=== PATIENT | female | born 1980 ===

== ENCOUNTER 2017-11-14 10:36 | Inpatient (IN) | payer MEDICAID ==
[2017-11-14] MEDS ORDERED: Albuterol-Ipratrop 3 mg / 0.5 (3 ml) UD INH STA ×3 (10:44→15:09)
[2017-11-14] MEDS ORDERED: Albuterol-Ipratrop 3 mg / 0.5 (3 ml) UD IH STA (10:44)
--- NOTE | 2017-11-14 10:49 | ED PDOC ---
HPI: SOB/CHF/COPD Time Seen by Provider: 11/14/17 10:41 Chief Complaint (Provider): Asthma History Per: Patient History/Exam Limitations: no limitations Onset/Duration Of Symptoms: Days (3) Current Symptoms Are (Timing): Still Present Additional Complaint(s): Pt. with wheezes and cough/nasal congestion for 3 days. States baby at home sick and she got the same. Tried her inhalers at home. Has had 2 intubations for it in the past. EMS gave pt. 125mg solumedrol, 3 Duoneb, 0.3 epi, 2 gm Mag. Pt. states she is feeling better with the tx. No chest pin, weakness, abd pain, nausea, vomit, diarrhea, headaches, dizziness. No pcp. Past Medical History Reviewed: Nursing Documentation, Vital Signs Vital Signs: Last Vital Signs Temp 97.7 F 11/14/17 12:37 Pulse 97 H 11/14/17 12:37 Resp 20 11/14/17 12:37 BP 112/81 11/14/17 12:37 Pulse Ox 95 11/14/17 12:37 - Medical History PMH: Asthma, Bronchitis - Surgical History Surgical History: No Surg Hx - Family History Family History: States: Unknown Family Hx - Living Arrangements Living Arrangements: With Family - Social History Current smoker - smoking cessation education provided: No Alcohol: None Drugs: Denies - Home Medications Home Medications: Ambulatory Orders Medication Instructions Recorded Albuterol HFA [Ventolin HFA 90 2 puff IH Q4 PRN 11/14/17 mcg/actuation (8 g)] Fluticasone/Salmeterol [Advair 1 puff IH Q12 11/14/17 250-50 Diskus] - Allergies Allergies/Adverse Reactions: Allergies Allergy/AdvReac Type Severity Reaction Status Date / Time aspirin Allergy Verified 11/14/17 10:42 Review of Systems ROS Statement: Except As Marked, All Systems Reviewed And Found Negative ENT: Positive for: Nose Congestion Respiratory: Positive for: Cough, Shortness of Breath, Wheezing Physical Exam - Reviewed Nursing Documentation Reviewed: Yes Vital Signs Reviewed: Yes - Physical Exam Appears: Positive for: Uncomfortable Head Exam: Positive for: ATRAUMATIC, NORMAL INSPECTION, NORMOCEPHALIC Skin: Positive for: Normal Color, Warm, DRY Eye Exam: Positive for: EOMI, Normal appearance, PERRL ENT: Positive for: Normal ENT Inspection Neck: Positive for: Normal, Painless ROM, Supple Cardiovascular/Chest: Positive for: Chest Non Tender, Tachycardia. Negative for : Edema Respiratory: Positive for: Decreased Breath Sounds, Accessory Muscle Use (mild) , Wheezing (bl) Gastrointestinal/Abdominal: Positive for: Normal Exam, Bowel Sounds, Soft. Negative for: Tenderness Back: Positive for: Normal Inspection. Negative for: L CVA Tenderness, R CVA Tenderness Extremity: Positive for: Normal ROM. Negative for: Tenderness, Pedal Edema Neurologic/Psych: Positive for: Alert, educational assistant II-XII, Oriented. Negative for: Motor/Sensory Deficits - Laboratory Results Result Diagrams: 11/14/17 11:32 11/14/17 11:32 Interpretation Of Abn Labs: 14.5 wbc - ECG ECG: Positive for: Interpreted By Me, Viewed By Me ECG Rhythm: Positive for: Normal QRS, Normal ST Segment, Sinus Rhythm - Radiology X-Ray: Read By Radiologist X-Ray Interpretation: No Acute Disease - Progress ED Course And Treament: 1314: Stable. Still with wheezes, but with improvement from time seen. Pt. will be put back on bipap. Will need admit. Pt. is status asthmaticus and not septic. HR increase likely form albuterol and dyspnea. Pt. WBC likely from distress reaction. Spoke with Dr. Brown who will admit. Spoke with Dr. Randolph. Will admit ICU. - Critical Care Total Time (In Min): 30 Documented Critical Care: Time excludes all time spent performint seperately billable procedures Disposition - Clinical Impression Clinical Impression: Status asthmaticus - Patient ED Disposition Is Patient to be Admitted: Yes - Disposition Disposition Time: 13:53 Condition: SERIOUS - Pt Status Changed To: Hospital Disposition Of: Inpatient - Admit Certification Admit to Inpatient:: After my assessment, the patient will require hospitalization for at least two midnights. This is because of the severity of symptoms shown, intensity of services needed, and/or the medical risk in this patient being treated as an outpatient. - POA Present On Arrival: None
[2017-11-14 11:09] LABS: ABG ALLEN TEST YES; ARTERIAL BLOOD GAS HCO3 23.1 mmol/L (21-28); ARTERIAL BLOOD GAS O2 SAT 100.7 % (95-98); ARTERIAL BLOOD GAS PCO2 41 mm/Hg (35-45); ARTERIAL BLOOD GAS PH 7.36 (7.35-7.45); ARTERIAL BLOOD GAS PO2 114 mm/Hg (80-100); ARTERIAL BLOOD GAS TCO2 24.5 mmol/L (22-28)
[2017-11-14 11:39] LABS: BASO # 0.1 K/uL (0.0-0.2); BASO % 0.5 % (0.0-2.0); EOS # 0.3 K/uL (0.0-0.7); EOS % 2.3 % (0.0-4.0); HEMOGLOBIN 16.2 g/dL (12.0-16.0); LYMPH # 2.3 K/uL (1.0-4.3); LYMPH % 16.1 % (20.0-40.0); MEAN CELL VOLUME 97.4 fl (81.0-99.0); MEAN CORPUSCULAR HGB CONC 33.9 g/dL (33.0-37.0); MEAN PLATELET VOLUME 9.2 fl (7.2-11.7); MONO # 0.6 K/uL (0.0-0.8); NEUT # 11.2 K/uL (1.8-7.0); NEUT % 77.1 % (50.0-75.0); NRBC % 0.1 % (0.0-0.0); RBC 4.89 Mil/uL (3.80-5.20); RED CELL DISTRIBUTION WIDTH 13.6 % (11.5-14.5); WHITE BLOOD COUNT 14.5 K/uL (4.8-10.8)
[2017-11-14] MEDS: Sodium Chloride 0.9% 1,000 ML IV SCH ×2 (11:40→14:51)
--- NOTE | 2017-11-14 11:43 | RAD ---
HISTORY: Sepsis Patient COMPARISON: No prior. FINDINGS: LUNGS: No active pulmonary disease. PLEURA: No significant pleural effusion identified, no pneumothorax apparent. CARDIOVASCULAR: Normal. OSSEOUS STRUCTURES: No significant abnormalities. VISUALIZED UPPER ABDOMEN: Normal. OTHER FINDINGS: None. IMPRESSION: No active disease.
[2017-11-14 11:49] LABS: CALCIUM 9.4 mg/dL (8.4-10.2); GFR AFRICAN-AMERICAN > 60; GFR NON-AFRICAN AMERICAN > 60
[2017-11-14 11:54] LABS: ALBUMIN 4.6 g/dL (3.5-5.0); ALT/SGPT 224 U/L (9-52); AST/SGOT 252 U/L (14-36); BLOOD UREA NITROGEN 13 mg/dl (7-17)
[2017-11-14 11:59] LABS: B-TYPE NATRIURETIC PEPTIDE 51.2 pg/ml (0-450)
[2017-11-14 12:00] LABS: INR 1.1 (0.9-1.2); PARTIAL THROMBOPLASTIN TIME 38.9 Seconds (25.6-37.1)
[2017-11-14 14:52] LABS: SQUAMOUS EPITHIAL 2 /hpf (0-5); URINE BILIRUBIN NEGATIVE (NEGATIVE); URINE BLOOD SMALL (NEGATIVE); URINE CLARITY SLIGHTY-CLOUDY (Clear); URINE COLOR STRAW (YELLOW); URINE GLUCOSE (UA) NEG (Normal); URINE LEUKOCYTE ESTERASE NEG Leu/uL (Negative); URINE PROTEIN NEGATIVE (NEGATIVE); URINE UROBILINOGEN 0.2-1.0 mg/dL (0.2-1.0)
--- NOTE | 2017-11-14 15:10 | CARD ---
APPROVED REPORT EKG Measurement Heart [id number] <Conclusion> Sinus tachycardia Otherwise normal ECG
[2017-11-14] MEDS ORDERED: cefTRIAXone (Rocephin) 1 gm Inj ONE (15:30)
[2017-11-14] MEDS ORDERED: Albuterol-Ipratrop 3 mg / 0.5 (3 ml) UD ONE (15:31)
[2017-11-14] MEDS: Albuterol-Ipratrop 3 mg / 0.5 (3 ml) UD INH SCH ×2 (15:36→19:53)
[2017-11-14] MEDS ORDERED: methylPREDNISolone 125 MG in Sodium Chloride 0.9% 50 ML IV SCH (16:00)
[2017-11-14] MEDS ORDERED: Pneumococcal 23-Valent Vaccine IM ONE (17:42)
[2017-11-14] MEDS ORDERED: Influenza Vaccine 18yr & older 0.5 ML/45 MCG SYR IM ONE (17:48)
[2017-11-14] MEDS: Dextrose 5%/0.9% NS 1,000 ML IV SCH (18:02)
[2017-11-14] MEDS: Azithromycin 500 MG in Sodium Chloride 0.9% 250 ML IVPB SCH (18:04)
[2017-11-14] MEDS: Enoxaparin 40 mg Syringe SC SCH (18:05)
[2017-11-14 21:36] LABS: BENZODIAZEPINES, UR NEGATIVE (NEGATIVE)
[2017-11-14 21:48] LABS: BARBITURATES, UR NEGATIVE (NEGATIVE); OPIATES, UR NEGATIVE (NEGATIVE); PHENCYCLIDINE, UR NEGATIVE (NEGATIVE)
[2017-11-15] MEDS: Albuterol-Ipratrop 3 mg / 0.5 (3 ml) UD INH PRN ×2 (00:19→04:40)
[2017-11-15 05:12] LABS: HEMOGLOBIN 14.5 g/dL (12.0-16.0); MEAN CELL VOLUME 97.8 fl (81.0-99.0); MEAN CORPUSCULAR HEMOGLOBIN 33.3 pg (27.0-31.0); RBC 4.37 Mil/uL (3.80-5.20); RED CELL DISTRIBUTION WIDTH 13.5 % (11.5-14.5); WHITE BLOOD COUNT 10.7 K/uL (4.8-10.8)
[2017-11-15 05:41] LABS: BLOOD UREA NITROGEN 12 mg/dl (7-17); CALCIUM 9.1 mg/dL (8.4-10.2); GFR AFRICAN-AMERICAN > 60; GFR NON-AFRICAN AMERICAN > 60
[2017-11-15] MEDS: Albuterol-Ipratrop 3 mg / 0.5 (3 ml) UD INH SCH ×4 (07:30→19:31)
--- NOTE | 2017-11-15 08:26 | CON ---
CRITICAL CARE CONSULTATION DATE: 11/14/2017 HISTORY OF PRESENT ILLNESS: The patient in ER, being admitted to ICU. The patient is seen and evaluated at the request of ER physician. Past medical, surgical, family, and social history reviewed. Events in the ER noted. Discussed with ER physician. A 37-year-old female with a history of extrinsic asthma, on Ventolin and Advair at home, presented to emergency room complaining of progressively worsening shortness of breath associated with nonproductive cough and chest congestion. History of exposure to _patient's_ child with upper respiratory infection, details not clear. In ER, the patient's vital signs show temperature 97.7, heart rate 97, respiratory rate 20, blood pressure 112/81, and pulse oximetry 95. The patient was treated with albuterol x3 and placed on BiPAP. Reportedly, the patient was given three treatments of DuoNeb, 0.3 mg of epinephrine subcutaneously, 2 g of magnesium sulfate, and Solu-Medrol 125 mg q6hrs. The patient also has a history of intubations in the past for respiratory failure secondary to exacerbation of asthma. PAST SURGICAL HISTORY: Unremarkable. FAMILY HISTORY: Noncontributory. SOCIAL HISTORY: Nonsmoker and non-EtOH user. PHYSICAL EXAMINATION: VITAL SIGNS: As noted above. HEAD, EYES, EARS, NOSE, AND THROAT: Unremarkable. CHEST: Bilateral breath sounds. Audible wheezing. HEART: Rhythm regular. S1 and S2 normal in intensity. ABDOMEN: Bowel sounds are present and soft. Liver and spleen not palpable. Bladder not distended. EXTREMITIES: Unremarkable. NEUROLOGIC: Nonfocal. LABORATORY DATA: WBC 14.5, hemoglobin 16.2, hematocrit 47.6, platelet count 267, neutrophils 77, lymphocytes 16, and monocytes 4. PT 12, INR 1.1, and PTT 38.9. ABG; pH of 7.36, pCO2 of 41, and pO2 of 114. Glucose 133 and lactate 1.6. SMA-7; sodium 149, potassium 4.4, chloride 104, CO2 of 23, blood urea nitrogen 13, creatinine 0.5, glucose 143, random glucose 136, calcium 9.4, phosphorus 4.3, magnesium 2.2, total bilirubin 1.5, AST 252, ALT 224, alkaline phosphatase 139, total protein 9.4, and albumin 4.6. IMPRESSION AND PLAN: Acute hypoxic respiratory insufficiency, status asthmaticus, history of extrinsic asthma, abnormal liver function test, unclear etiology, and needs further workup. We will continue with bilevel positive airway pressure until the patient is more stable. Continue DuoNeb 3 mL via nebulizer q.6 hours, short course of systemic steroid proton pump inhibitor, antibiotic Rocephin 1 g IV daily, Zithromax 500 mg IV daily, Lovenox 40 subcutaneously daily, and urine test. Sylvester Randolph MD MTDSingh
[2017-11-15] MEDS: Enoxaparin 40 mg Syringe SC SCH (08:43)
[2017-11-15] MEDS: MethylPREDNISolone 40 mg Vial IVP SCH ×2 (08:44→16:16)
[2017-11-15] MEDS: Azithromycin 500 MG in Sodium Chloride 0.9% 250 ML IVPB SCH (08:44)
[2017-11-15] MEDS: Pantoprazole 40 mg EC Tab PO SCH (08:50)
[2017-11-15] MEDS ORDERED: methylPREDNISolone 40 MG in Sodium Chloride 0.9% 50 ML IVPB SCH (09:00)
[2017-11-15] MEDS: Dextrose 5%/0.9% NS 1,000 ML IV SCH (14:24)
--- NOTE | 2017-11-15 15:44 | CP.CCUPN ---
CCU Subjective - Physician Review Subjective (Free Text): Awake and alert, trial off BiPAP with fair tolerance and dyspneic on exertion, on 5 LPM for breakfast, but required and requested BiPAP again, conversant and awake on BiPAP system ( /, 40% ) with SPO2 98% and TV average 348 ml. Other VS and I/Os reviewed. T max 100.6F yesterday; 3.0 L positive fluid balance last 24H. ROS: No other pertinent negs or positives on 10+ system review. PMSFH: All other Nursing and physician documentation reviewed to date; no new pertinent info noted relevant to current medical problems. EXAM- HEENT: no icterus, no gaze preference, pupils equal and reactive, no icterus NECK: No JVD, supple, carotids equal upstroke bilat/no bruits CHEST: decreased BS bases, otherwise clear bilat, no wheezes audible HEART: regular distant, S1S2, no rubs. ABD: soft, no distention, no tympany or tenderness, BS present, no RUQ / liver tenderness. EXT: No peripheral/ digital cyanosis, no calf tenderness or palpable cords, distal pulses intact and symmetrical. NEURO: no gross focal motor deficits SKIN: no rashes, warm and dry. CXR: admission film- clear bilaterally (my interp). LABS: WBC= 10.7 HGB= 14.5 PLTs= 204K Na= 153 K= 4.1 HCO3=25 CL= 108 BUN/Cr= 12/0.5 BS= 159 MAJOR PROBLEMS: 1. Acute Resp Insuff 2. Asthma exacerbation 2 Tracheobronchitis 3. Hypernatremia 2 Dehydration 4. Hypertransaminasemia PLAN: 1. Continue Steroids (lower dose) and inhaled Duoneb, empiric abx coverage. 2. Stop D5NS and change in D50.45% Saline for now and increase rate. 3. Check repeat LFTs, and Coags, Hep ABC Screen. 4. Watch for need for assisted breathing support. 5. Consider ECHO study. 6. Watch for substance abuse withdrawal. CCU Objective - Vital Signs / Intake & Output Vital Signs (Last 4 hours): Vital Signs Temp Pulse Resp BP Pulse Ox 11/15/17 15:00 85 22 126/94 H 100 11/15/17 14:00 92 H 21 116/50 L 98 11/15/17 13:00 79 24 123/71 100 11/15/17 12:00 98.8 F 79 22 117/82 97 Intake and Output (Last 8hrs): Intake & Output 11/15/17 11/15/17 11/15/17 06:59 14:59 22:59 Weight 155 lb - Medications Active Medications: Active Medications Generic Name Dose Route Start Last Admin Trade Name Freq PRN Reason Stop Dose Admin Acetaminophen 975 mg 11/14/17 10:43 Tylenol 325mg Tab PO ONCE PRN Fever >100.4 F Acetaminophen 650 mg 11/14/17 18:17 11/15/17 14:23 Tylenol 325mg Tab PO 650 mg Q6 PRN Administration Headache Albuterol/Ipratropium 3 ml 11/14/17 15:10 11/15/17 04:40 Duoneb 3 Mg/0.5 Mg (3 Ml) Ud INH 3 ml RQ4 PRN Administration Shortness of Breath Albuterol/Ipratropium 3 ml 11/14/17 16:00 11/15/17 15:43 Duoneb 3 Mg/0.5 Mg (3 Ml) Ud INH 3 ml RQID SIDNEY Administration Enoxaparin Sodium 40 mg 11/14/17 15:30 11/15/17 08:43 Lovenox SC 40 mg DAILY SIDNEY Administration Protocol Ceftriaxone Sodium 1 gm/ 100 mls @ 100 mls/hr 11/14/17 15:15 11/15/17 09:22 Sodium Chloride IVPB 100 mls/hr DAILY SIDNEY Administration Protocol Azithromycin 500 mg/ Sodium 250 mls @ 250 mls/hr 11/14/17 15:30 11/15/17 08: 44 Chloride IVPB 250 mls/hr DAILY SIDNEY Administration Protocol Methylprednisolone 40 mg 11/15/17 09:00 11/15/17 08:44 Solu-Medrol IVP 40 mg Q8 SIDNEY Administration Oxycodone/Acetaminophen 1 tab 11/15/17 15:00 Percocet 5/325 Mg Tab PO 11/18/17 15:01 Q6 PRN Pain, moderate (4-7) Pantoprazole Sodium 40 mg 11/15/17 09:00 11/15/17 08:50 Protonix Ec Tab PO 40 mg DAILY SIDNEY Administration - Patient Studies Lab Studies: Microbiology Studies 11/14/17 11:32 Blood Culture - Preliminary Blood NO GROWTH AFTER 24 HOURS 11/14/17 11:32 Blood Culture - Preliminary Blood NO GROWTH AFTER 24 HOURS Lab Studies 11/15/17 11/15/17 11/14/17 Range/Units 04:25 04:25 21:15 WBC 10.7 (4.8-10.8) K/uL RBC 4.37 (3.80-5.20) Mil/uL Hgb 14.5 (12.0-16.0) g/dL Hct 42.7 (34.0-47.0) % MCV 97.8 (81.0-99.0) fl MCH 33.3 H (27.0-31.0) pg MCHC 34.0 (33.0-37.0) g/dL RDW 13.5 (11.5-14.5) % Plt Count 204 (130-400) K/uL Sodium 153 H (132-148) mmol/l Potassium 4.1 (3.6-5.0) MMOL/L Chloride 108 H (98-107) mmol/L Carbon Dioxide 25 (22-30) mmol/L Anion Gap 24 H (10-20) BUN 12 (7-17) mg/dl Creatinine 0.5 L (0.7-1.2) mg/dl Est GFR ( Amer) > 60 Est GFR (Non-Af Amer) > 60 Random Glucose 159 H (65-105) mg/dL Calcium 9.1 (8.4-10.2) mg/dL Urine Opiates Screen Negative (NEGATIVE) Urine Methadone Screen Negative (NEGATIVE) Ur Barbiturates Screen Negative (NEGATIVE) Ur Phencyclidine Scrn Negative (NEGATIVE) Ur Amphetamines Screen Negative (NEGATIVE) U Benzodiazepines Scrn Negative (NEGATIVE) U Oth Cocaine Metabols Negative (NEGATIVE) U Cannabinoids Screen Positive H (NEGATIVE) Hepatitis C Antibody (NEGATIVE) 11/14/17 Range/Units 21:15 WBC (4.8-10.8) K/uL RBC (3.80-5.20) Mil/uL Hgb (12.0-16.0) g/dL Hct (34.0-47.0) % MCV (81.0-99.0) fl MCH (27.0-31.0) pg MCHC (33.0-37.0) g/dL RDW (11.5-14.5) % Plt Count (130-400) K/uL Sodium (132-148) mmol/l Potassium (3.6-5.0) MMOL/L Chloride (98-107) mmol/L Carbon Dioxide (22-30) mmol/L Anion Gap (10-20) BUN (7-17) mg/dl Creatinine (0.7-1.2) mg/dl Est GFR ( Amer) Est GFR (Non-Af Amer) Random Glucose (65-105) mg/dL Calcium (8.4-10.2) mg/dL Urine Opiates Screen (NEGATIVE) Urine Methadone Screen (NEGATIVE) Ur Barbiturates Screen (NEGATIVE) Ur Phencyclidine Scrn (NEGATIVE) Ur Amphetamines Screen (NEGATIVE) U Benzodiazepines Scrn (NEGATIVE) U Oth Cocaine Metabols (NEGATIVE) U Cannabinoids Screen (NEGATIVE) Hepatitis C Antibody Reactive (NEGATIVE) Laboratory Results - last 24 hr 11/14/17 11/14/17 11/15/17 21:15 21:15 04:25 WBC 10.7 RBC 4.37 Hgb 14.5 Hct 42.7 MCV 97.8 MCH 33.3 H MCHC 34.0 RDW 13.5 Plt Count 204 Sodium Potassium Chloride Carbon Dioxide Anion Gap BUN Creatinine Est GFR ( Amer) Est GFR (Non-Af Amer) Random Glucose Calcium Urine Opiates Screen Negative Urine Methadone Screen Negative Ur Barbiturates Screen Negative Ur Phencyclidine Scrn Negative Ur Amphetamines Screen Negative U Benzodiazepines Scrn Negative U Oth Cocaine Metabols Negative U Cannabinoids Screen Positive H Hepatitis C Antibody Reactive 11/15/17 04:25 WBC RBC Hgb Hct MCV MCH MCHC RDW Plt Count Sodium 153 H Potassium 4.1 Chloride 108 H Carbon Dioxide 25 Anion Gap 24 H BUN 12 Creatinine 0.5 L Est GFR ( Amer) > 60 Est GFR (Non-Af Amer) > 60 Random Glucose 159 H Calcium 9.1 Urine Opiates Screen Urine Methadone Screen Ur Barbiturates Screen Ur Phencyclidine Scrn Ur Amphetamines Screen U Benzodiazepines Scrn U Oth Cocaine Metabols U Cannabinoids Screen Hepatitis C Antibody Fingerstick Blood Sugar Results: 143 Review of Systems - Review of Systems All systems: reviewed and no additional remarkable complaints except (as above) Critical Care Progress Note - Nutrition Nutrition: Nutrition Category Date Time Status Regular Diet [DIET] Diets 11/15/17 Breakfast Active Regular Diet [DIET] Diets 11/15/17 Dinner Active
[2017-11-15] MEDS: Oxycodone/Acetaminophen 5/325 mg Tab PO PRN ×2 (15:46→22:56)
[2017-11-15] MEDS: Dextrose 5%/0.45% NS 1,000 ML IV SCH (16:15)
--- NOTE | 2017-11-15 22:57 | CP.PCM.HP ---
History of Present Illness - History of Present Illness History of Present Illness: CC: SOB and wheezes History of present Illness: A 37yoF with h/o Asthma presented with dyspnea and wheezes and cough/nasal congestion for 3 days. States baby at home sick and she got the same. Tried her inhalers at home. Has had 2 intubations for it in the past. EMS gave pt. 125mg solumedrol, 3 Duoneb, 0.3 epi, 2 gm Mag. The dyspnea and wheezing persisted despite multiple dosing of duoneb in the ER and using accessory muscles due to Acute resp distress. Admitted to ICU for further management. No chest pin, weakness, abd pain, nausea, vomit, diarrhea, headaches, dizziness. No pcp. Present on Admission - Present on Admission Any Indicators Present on Admission: No Review of Systems - Review of Systems All systems: reviewed and no additional remarkable complaints except Past Patient History - Past Medical History & Family History Past Medical History?: Yes - Past Social History Smoking Status: Former Smoker - CARDIAC Hx Cardiac Disorders: No Hx Angina: No Hx Atrial Fibrillation: No Hx Cardia Arrhythmia: No Hx Circulatory Problems: No Hx Congestive Heart Failure: No Hx Heart Attack: No Hx Heart Murmur: No Hx Heart Transplant: No Hx Hypercholesterolemia: No Hx Hypertension: No Hx Hypotension: No Hx Internal Defibrillator: No Hx Mitral Valve Prolapse: No Hx Pacemaker: No Hx Peripheral Edema: No Hx Peripheral Vascular Disease: No - PULMONARY Hx Respiratory Disorders: Yes Hx Asthma: Yes Hx Bronchitis: Yes Hx Chronic Obstructive Pulmonary Disease (COPD): No Hx Emphysema: Yes Hx Lung Cancer: No Hx Pneumonia: No Hx Pulmonary Edema: No Hx Pulmonary Embolism: No Hx Respiratory Aspiration: No Hx Respiratory Tract Infection: No Hx Sleep Apnea: No Hx Tuberculosis: No - NEUROLOGICAL Hx Neurological Disorder: Yes Hx Alzheimer's Disease: No HX Cerebrovascular Accident: No Hx Dementia: No Hx Dizziness: Yes Hx Meningitis: No Hx Migraine: Yes Hx Multiple Sclerosis: No Hx Paralysis: No Hx Parkinson's Disease: No Hx Seizures: No Hx Syncope: No Hx Transient Ischemic Attacks (TIA): No Hx Vertigo: Yes - HEENT Hx HEENT Problems: Yes Hx Blind: No Hx Cataracts: No Hx Deafness: No Hx Difficulty Chewing: No Hx Epistaxis: No Hx Glaucoma: No Hx Macular Degeneration: No Hx Sinusitis: Yes - RENAL Hx Chronic Kidney Disease: No Hx Dialysis: No Hx Kidney Stones: No Hx Neurogenic Bladder: No Hx Pyelonephritis: No Hx Renal (Kidney) Cancer: No Hx Renal Failure: No - ENDOCRINE/METABOLIC Hx Endocrine Disorders: No Hx Adrenal Cancer: No Hx Diabetes Insipidus: No Hx Diabetes Mellitus Type 1: No Hx Diabetes Mellitus Type 2: No Hx Hyperthyroidism: No Hx Hypothyroidism: No Hx Systemic Lupus Erythematosus: No - HEMATOLOGICAL/ONCOLOGICAL Hx Blood Disorders: Yes Hx AIDS: No Hx Anemia: No Hx Blood Transfusions: No Hx Blood Transfusion Reaction: No Hx Bruising: No Hx Cancer: No Hx Chemotherapy: No Hx Cirrhosis: No Hx Gum Bleeding: No Hx Hemophilia: No Hx Hepatitis A: No Hx Hepatitis B: No Hx Hepatitis C: Yes Hx Human Immunodeficiency Virus (HIV): No Hx Leukemia: No Hx Metastesis: No Hx Shingles: No Hx Sickle Cell Disease: No Hx Unexplained Bleeding: No Hx von Willebrand's Disease: No - INTEGUMENTARY Hx Dermatological Problems: No Hx Basil Cell: No Hx Ortega: No Hx Cellulitis: No Hx Eczema: No Hx Melanoma: No Hx Psoriasis: No Hx Squamous Cell: No - MUSCULOSKELETAL/RHEUMATOLOGICAL Hx Musculoskeletal Disorders: Yes Hx Arthritis: Yes Hx Back Pain: No Hx Degenerative Joint Disease: No Hx Falls: Yes (in hospital 2016) Hx Fractures: Yes (ankles, c5 neck) Hx Gout: No Hx Herniated Disk: No Hx Myasthenia Gravis: No Hx Osteoarthritis: No Hx Osteomyelitis: No Hx Osteoporosis: No Hx Rhabdomyolysis: No Hx Rheumatoid Arthritis: No Hx Spinal Stenosis: No Hx Unsteady Gait: Yes - GASTROINTESTINAL Hx Gastrointestinal Disorders: Yes Hx Bowel Surgery: No Hx Clostridium Difficile: No Hx Colitis: No Hx Colostomy: No Hx Constipation: No Hx Crohn's Disease: No Hx Diarrhea: Yes Hx Diverticulitis: No Hx Esophageal Varices: No Hx Fatty Liver Disease: No Hx Gall Bladder Disease: No Hx Gastritis: No Hx Gastroesophageal Reflux: No Hx Hemorrhoids: No Hx Ileostomy: No Hx Irritable Bowel: No Hx Liver Failure: No Hx Nausea: Yes Hx Pancreatitis: No HX Swallowing Problems: No Hx Ulcer: No Hx Vomiting: Yes - GENITOURINARY/GYNECOLOGICAL Hx Genitourinary Disorders: No Hx Bladder Cancer: No Hx Bladder Stone: No Hx Cervical Cancer: No Hx Hematuria: No Hx Incontinence: No Hx Ovarian Cancer: No Hx Postmenopausal Bleeding: No Hx Reproductive Disorders: No Hx Sexually Transmitted Disorders: No Hx Uterine Cancer: No Hx Urinary Tract Infection: No - PSYCHIATRIC Hx Psychophysiologic Disorder: Yes Hx Anxiety: Yes Hx Bipolar Disorder: No Hx Depression: Yes Hx Emotional Abuse: No Hx Hallucinations: Yes ("saw shadows last month") Hx Panic Symptoms: No Hx Paranoia: No Hx Post Traumatic Stress Disorder: No Hx Psychosis: No Hx Physical Abuse: No Hx Schizophrenia: No Hx Sexual Abuse: No Hx Substance Use: Yes (herion years ago) - SURGICAL HISTORY Hx Surgeries: Yes Hx Abdominal Aortic Aneurysm Repair: No Hx Amputation: No Hx Angiogram: No Hx Angioplasty: No Hx Appendectomy: No Hx Arteriovenous Shunt: No Hx Arthroscopy: No Hx Bile Duct Stent: No Hx Breast Biopsy: No Hx Cataract Extraction: No Hx Cardiac Catheterization: No Hx Carotid Endarterectomy: No Hx Section: Yes Hx Cholecystectomy: No Hx Coronary Artery Bypass Graft: No Hx Coronary Stent: No Hx Dilation and Curettage: No Hx Eye Surgery: No Hx Femoral-Popliteal Bypass Graft: No Hx Gastric Bypass Surgery: No Hx Herniorrhaphy: No Hx Hysterectomy: No Hx Joint Replacement: No Hx Kidney Transplant: No Hx Liver Transplant: No Hx Mastectomy: No Hx Musculoskeletal Surgery: No Hx Open Heart Surgery: No Hx Open Reduction Internal Fixation: No Hx Orthopedic Surgery: No Hx Parathyroidectomy: No Hx Penile Implant: No Hx Pulmonary Surgery: No Hx Splenectomy: No Hx Thyroidectomy: No Hx Tonsillectomy: No Hx Tubal Ligation: No Hx Valve Replacement: No Hx Vascular Surgery: No Hx Vascular Access Device: No Other/Comment: cyst removed from above buttock - ANESTHESIA Hx Anesthesia: Yes Hx Anesthesia Reactions: No Hx Malignant Hyperthermia: No Has any member of the family had a problem w/ anesthesia?: No Meds Allergies/Adverse Reactions: Allergies Allergy/AdvReac Type Severity Reaction Status Date / Time aspirin Allergy Verified 11/14/17 10:42 Physical Exam - Constitutional Appears: Well, In Acute Distress - Head Exam Head Exam: ATRAUMATIC, NORMAL INSPECTION, NORMOCEPHALIC - Eye Exam Eye Exam: EOMI, Normal appearance, PERRL Pupil Exam: NORMAL ACCOMODATION, PERRL - ENT Exam ENT Exam: Mucous Membranes Moist, Normal Exam - Neck Exam Neck exam: Positive for: Normal Inspection - Respiratory Exam Respiratory Exam: Decreased Breath Sounds, Prolonged Expiratory Phase, Wheezes, Respiratory Distress - Cardiovascular Exam Cardiovascular Exam: Tachycardia, +S1 - GI/Abdominal Exam GI & Abdominal Exam: Normal Bowel Sounds, Soft. absent: Tenderness - Extremities Exam Extremities exam: Positive for: normal inspection - Back Exam Back exam: FULL ROM, NORMAL INSPECTION - Neurological Exam Neurological exam: Alert, CN II-XII Intact, Normal Gait, Oriented x3, Reflexes Normal - Psychiatric Exam Psychiatric exam: Normal Affect, Normal Mood - Skin Skin Exam: Dry, Intact, Normal Color, Warm Results - Vital Signs Recent Vital Signs: Last Vital Signs Temp 97.7 F 11/15/17 16:00 Pulse 65 11/15/17 22:28 Resp 18 11/15/17 18:00 BP 122/97 H 11/15/17 18:00 Pulse Ox 98 11/15/17 18:00 - Labs Result Diagrams: 11/17/17 04:40 11/17/17 04:40 Labs: Laboratory Results - last 24 hr 11/14/17 11/15/17 11/15/17 21:15 04:25 04:25 WBC 10.7 RBC 4.37 Hgb 14.5 Hct 42.7 MCV 97.8 MCH 33.3 H MCHC 34.0 RDW 13.5 Plt Count 204 Sodium 153 H Potassium 4.1 Chloride 108 H Carbon Dioxide 25 Anion Gap 24 H BUN 12 Creatinine 0.5 L Est GFR ( Amer) > 60 Est GFR (Non-Af Amer) > 60 Random Glucose 159 H Calcium 9.1 Hepatitis C Antibody Reactive - EKG Data EKG shows normal: Sinus rhythm Rate: Tachycardia - Imaging and Cardiology Chest x-ray Status: Report reviewed by me Additional comment: No Active disease Assessment & Plan (1) Status asthmaticus Assessment and Plan: Admit to ICU O2 BIPAP PRN Solumedrol Duoneb RTC IV Rocephin/Azithromycin Pulmonary Consult Status: Acute Priority: High
[2017-11-16] MEDS: Albuterol-Ipratrop 3 mg / 0.5 (3 ml) UD INH PRN
[2017-11-16 05:24] LABS: HEMOGLOBIN 11.9 g/dL (12.0-16.0); LYMPH # 2.7 K/uL (1.0-4.3); LYMPH % 18.6 % (20.0-40.0); MEAN CELL VOLUME 98.7 fl (81.0-99.0); MEAN CORPUSCULAR HEMOGLOBIN 32.9 pg (27.0-31.0); MEAN CORPUSCULAR HGB CONC 33.3 g/dL (33.0-37.0); MEAN PLATELET VOLUME 9.1 fl (7.2-11.7); MONO # 0.8 K/uL (0.0-0.8); MONO % 5.1 % (0.0-10.0); NEUT # 11.3 K/uL (1.8-7.0); NEUT % 76.3 % (50.0-75.0); RBC 3.63 Mil/uL (3.80-5.20); WHITE BLOOD COUNT 14.8 K/uL (4.8-10.8)
[2017-11-16 06:16] LABS: ALBUMIN 3.1 g/dL (3.5-5.0); ALT/SGPT 105 U/L (9-52); AST/SGOT 50 U/L (14-36); BLOOD UREA NITROGEN 14 mg/dl (7-17); GFR AFRICAN-AMERICAN > 60; GFR NON-AFRICAN AMERICAN > 60
[2017-11-16 06:22] LABS: INR 1.1 (0.9-1.2); PARTIAL THROMBOPLASTIN TIME 34.1 Seconds (25.6-37.1); PROTHROMBIN TIME 12.2 Seconds (9.8-13.1)
[2017-11-16] MEDS: Albuterol-Ipratrop 3 mg / 0.5 (3 ml) UD INH SCH ×4 (08:09→19:19)
[2017-11-16] MEDS: Pantoprazole 40 mg EC Tab PO SCH (08:13)
[2017-11-16] MEDS: Enoxaparin 40 mg Syringe SC SCH (08:13)
[2017-11-16] MEDS: MethylPREDNISolone 40 mg Vial IVP SCH ×2 (08:14→16:24)
[2017-11-16] MEDS: Azithromycin 500 MG in Sodium Chloride 0.9% 250 ML IVPB SCH (09:00)
--- NOTE | 2017-11-16 11:31 | CP.CCUPN ---
CCU Subjective - Physician Review Subjective (Free Text): Awake and alert, no distress , off BiPAP, on NC 6 LPM with SPO2 99%. Other VS and I/Os reviewed. ROS: No other pertinent negs or positives on 10+ system review. PMSFH: All other Nursing and physician documentation reviewed to date; no new pertinent info noted relevant to current medical problems. EXAM- HEENT: no icterus, no gaze preference, pupils equal and reactive, no icterus NECK: No JVD, supple, carotids equal upstroke bilat/no bruits CHEST: decreased BS bases, otherwise clear bilat, no wheezes audible HEART: regular distant, S1S2, no rubs. ABD: soft, no distention, no tympany or tenderness, BS present, no RUQ / liver tenderness. EXT: No peripheral/ digital cyanosis, no calf tenderness or palpable cords, distal pulses intact and symmetrical. NEURO: no gross focal motor deficits SKIN: no rashes, warm and dry. LABS: WBC= 14.8 HGB= 11.9 PLTs= 190K Na= 143 K= 3.7 CL= 103 HCO3=27 BUN/Cr= 14/0.5 BS= 141 MAJOR PROBLEMS: 1. Acute Resp Insuff 2. Asthma exacerbation 2 Tracheobronchitis 3. Hypernatremia 2 Dehydration 4. Hypertransaminasemia PLAN: 1. Continuing Steroids (lower dose) and inhaled Duoneb, empiric abx coverage. 2. Stop D5NS and change in D50.45% Saline for now and increase rate. Hypernatremia normalized. 3. Marked improvement in LFTs. HIV is negative, Coags normal, Hep ABC Screen pending. 4. Has averted need for assisted breathing support. 5. Watch for substance abuse withdrawal. 6. Stable for stepdown bed. CCU Objective - Vital Signs / Intake & Output Vital Signs (Last 4 hours): Vital Signs Temp Pulse Resp BP Pulse Ox 11/16/17 11:16 75 11/16/17 11:00 94 H 16 107/72 96 11/16/17 10:00 68 21 118/86 97 11/16/17 09:00 88 25 H 122/80 96 11/16/17 08:10 55 L 11/16/17 08:00 97.9 F 56 L 16 91/61 L 99 Intake and Output (Last 8hrs): Intake & Output 11/15/17 11/16/17 11/16/17 22:59 06:59 14:59 Intake Total 540 Output Total 300 Balance 240 Intake: IV 300 Oral 240 Output: Urine 300 Urine, Voided 300 - Medications Active Medications: Active Medications Generic Name Dose Route Start Last Admin Trade Name Freq PRN Reason Stop Dose Admin Acetaminophen 975 mg 11/14/17 10:43 Tylenol 325mg Tab PO ONCE PRN Fever >100.4 F Acetaminophen 650 mg 11/14/17 18:17 11/15/17 14:23 Tylenol 325mg Tab PO 650 mg Q6 PRN Administration Headache Albuterol/Ipratropium 3 ml 11/14/17 15:10 11/16/17 00:00 Duoneb 3 Mg/0.5 Mg (3 Ml) Ud INH 3 ml RQ4 PRN Administration Shortness of Breath Albuterol/Ipratropium 3 ml 11/14/17 16:00 11/16/17 11:16 Duoneb 3 Mg/0.5 Mg (3 Ml) Ud INH 3 ml RQID [facility]NEY Administration Enoxaparin Sodium 40 mg 11/14/17 15:30 11/16/17 08:13 Lovenox SC 40 mg DAILY [facility] Administration Protocol Ceftriaxone Sodium 1 gm/ 100 mls @ 100 mls/hr 11/14/17 15:15 11/16/17 08:15 Sodium Chloride IVPB 100 mls/hr DAILY [facility] Administration Protocol Azithromycin 500 mg/ Sodium 250 mls @ 250 mls/hr 11/14/17 15:30 11/16/17 09: 00 Chloride IVPB 250 mls/hr DAILY [facility] Administration Protocol Dextrose/Sodium Chloride 1,000 mls @ 150 mls/hr 11/15/17 16:00 11/15/17 16:15 Dextrose 5%/0.45% Ns 1000 Ml IV 11/17/17 16:01 150 mls/hr .Q6H40M [facility] Administration Methylprednisolone 40 mg 11/15/17 09:00 11/16/17 08:14 Solu-Medrol IVP 40 mg Q8 [facility] Administration Oxycodone/Acetaminophen 1 tab 11/15/17 15:00 11/15/17 22:56 Percocet 5/325 Mg Tab PO 11/18/17 15:01 1 tab Q6 PRN Administration Pain, moderate (4-7) Pantoprazole Sodium 40 mg 11/15/17 09:00 11/16/17 08:13 Protonix Ec Tab PO 40 mg DAILY [facility]NEY Administration - Patient Studies Lab Studies: Microbiology Studies 11/14/17 11:32 Blood Culture - Preliminary Blood NO GROWTH AFTER 24 HOURS 11/14/17 11:32 Blood Culture - Preliminary Blood NO GROWTH AFTER 24 HOURS Lab Studies 11/16/17 11/16/17 11/16/17 Range/Units 04:45 04:45 04:45 WBC (4.8-10.8) K/uL RBC (3.80-5.20) Mil/uL Hgb (12.0-16.0) g/dL Hct (34.0-47.0) % MCV (81.0-99.0) fl MCH (27.0-31.0) pg MCHC (33.0-37.0) g/dL RDW (11.5-14.5) % Plt Count (130-400) K/uL MPV (7.2-11.7) fl Neut % (Auto) (50.0-75.0) % Lymph % (Auto) (20.0-40.0) % [place] % (Auto) (0.0-10.0) % Eos % (Auto) (0.0-4.0) % Baso % (Auto) (0.0-2.0) % Neut # (Auto) (1.8-7.0) K/uL Lymph # (Auto) (1.0-4.3) K/uL [place] # (Auto) (0.0-0.8) K/uL Eos # (Auto) (0.0-0.7) K/uL Baso # (Auto) (0.0-0.2) K/uL PT 12.2 (9.8-13.1) Seconds INR 1.1 (0.9-1.2) APTT 34.1 (25.6-37.1) Seconds Sodium 143 (132-148) mmol/l Potassium 3.7 (3.6-5.0) MMOL/L Chloride 103 (98-107) mmol/L Carbon Dioxide 27 (22-30) mmol/L Anion Gap 17 (10-20) BUN 14 (7-17) mg/dl Creatinine 0.5 L (0.7-1.2) mg/dl Est GFR ( Amer) > 60 Est GFR (Non-Af Amer) > 60 Random Glucose 141 H (65-105) mg/dL Calcium 8.0 L (8.4-10.2) mg/dL Total Bilirubin 0.2 (0.2-1.3) mg/dl AST 50 H D (14-36) U/L ALT 105 H D (9-52) U/L Alkaline Phosphatase 75 (38-126) U/L Total Protein 6.3 (6.3-8.2) G/DL Albumin 3.1 L D (3.5-5.0) g/dL Globulin 3.2 (2.2-3.9) gm/dL Albumin/Globulin Ratio 1.0 (1.0-2.1) TSH 3rd Generation 0.12 L (0.46-4.68) mIU/ML Hepatitis C Antibody (NEGATIVE) HIV-1 Ab Rapid Screen Non reactive (NON REAC) 11/16/17 11/14/17 Range/Units 04:45 21:15 WBC 14.8 H (4.8-10.8) K/uL RBC 3.63 L (3.80-5.20) Mil/uL Hgb 11.9 L D (12.0-16.0) g/dL Hct 35.8 (34.0-47.0) % MCV 98.7 (81.0-99.0) fl MCH 32.9 H (27.0-31.0) pg MCHC 33.3 (33.0-37.0) g/dL RDW 14.0 (11.5-14.5) % Plt Count 190 (130-400) K/uL MPV 9.1 (7.2-11.7) fl Neut % (Auto) 76.3 H (50.0-75.0) % Lymph % (Auto) 18.6 L (20.0-40.0) % [place] % (Auto) 5.1 (0.0-10.0) % Eos % (Auto) 0.0 (0.0-4.0) % Baso % (Auto) 0.0 (0.0-2.0) % Neut # (Auto) 11.3 H (1.8-7.0) K/uL Lymph # (Auto) 2.7 (1.0-4.3) K/uL [place] # (Auto) 0.8 (0.0-0.8) K/uL Eos # (Auto) 0.0 (0.0-0.7) K/uL Baso # (Auto) 0.0 (0.0-0.2) K/uL PT (9.8-13.1) Seconds INR (0.9-1.2) APTT (25.6-37.1) Seconds Sodium (132-148) mmol/l Potassium (3.6-5.0) MMOL/L Chloride (98-107) mmol/L Carbon Dioxide (22-30) mmol/L Anion Gap (10-20) BUN (7-17) mg/dl Creatinine (0.7-1.2) mg/dl Est GFR ( Amer) Est GFR (Non-Af Amer) Random Glucose (65-105) mg/dL Calcium (8.4-10.2) mg/dL Total Bilirubin (0.2-1.3) mg/dl AST (14-36) U/L ALT (9-52) U/L Alkaline Phosphatase (38-126) U/L Total Protein (6.3-8.2) G/DL Albumin (3.5-5.0) g/dL Globulin (2.2-3.9) gm/dL Albumin/Globulin Ratio (1.0-2.1) TSH 3rd Generation (0.46-4.68) mIU/ML Hepatitis C Antibody Reactive (NEGATIVE) HIV-1 Ab Rapid Screen (NON REAC) Laboratory Results - last 24 hr 11/14/17 11/16/17 11/16/17 21:15 04:45 04:45 WBC 14.8 H RBC 3.63 L Hgb 11.9 L D Hct 35.8 MCV 98.7 MCH 32.9 H MCHC 33.3 RDW 14.0 Plt Count 190 MPV 9.1 Neut % (Auto) 76.3 H Lymph % (Auto) 18.6 L [place] % (Auto) 5.1 Eos % (Auto) 0.0 Baso % (Auto) 0.0 Neut # (Auto) 11.3 H Lymph # (Auto) 2.7 [place] # (Auto) 0.8 Eos # (Auto) 0.0 Baso # (Auto) 0.0 PT INR APTT Sodium 143 Potassium 3.7 Chloride 103 Carbon Dioxide 27 Anion Gap 17 BUN 14 Creatinine 0.5 L Est GFR ( Amer) > 60 Est GFR (Non-Af Amer) > 60 Random Glucose 141 H Calcium 8.0 L Total Bilirubin 0.2 AST 50 H D ALT 105 H D Alkaline Phosphatase 75 Total Protein 6.3 Albumin 3.1 L D Globulin 3.2 Albumin/Globulin Ratio 1.0 TSH 3rd Generation 0.12 L Hepatitis C Antibody Reactive HIV-1 Ab Rapid Screen 11/16/17 11/16/17 04:45 04:45 WBC RBC Hgb Hct MCV MCH MCHC RDW Plt Count MPV Neut % (Auto) Lymph % (Auto) [place] % (Auto) Eos % (Auto) Baso % (Auto) Neut # (Auto) Lymph # (Auto) [place] # (Auto) Eos # (Auto) Baso # (Auto) PT 12.2 INR 1.1 APTT 34.1 Sodium Potassium Chloride Carbon Dioxide Anion Gap BUN Creatinine Est GFR ( Amer) Est GFR (Non-Af Amer) Random Glucose Calcium Total Bilirubin AST ALT Alkaline Phosphatase Total Protein Albumin Globulin Albumin/Globulin Ratio TSH 3rd Generation Hepatitis C Antibody HIV-1 Ab Rapid Screen Non reactive Fingerstick Blood Sugar Results: 143 Review of Systems - Review of Systems All systems: reviewed and no additional remarkable complaints except (as above) Critical Care Progress Note - Nutrition Nutrition: Nutrition Category Date Time Status Regular Diet [DIET] Diets 11/15/17 Dinner Active
[2017-11-16 12:34] LABS: HEPATITIS B SURFACE AG Negative (NEGATIVE)
[2017-11-16 12:42] LABS: HEPATITIS A IGM NEGATIVE (NEGATIVE); HEPATITIS B CORE AB NEGATIVE (NEGATIVE)
[2017-11-16 13:51] LABS: HEPATITIS C ANTIBODY REACTIVE (NEGATIVE)
[2017-11-16] MEDS: Dextrose 5%/0.45% NS 1,000 ML IV SCH ×2 (14:12→21:16)
[2017-11-16 16:29] LABS: GAMMA GLUTAMYL TRANSPEPTIDASE 107 U/L (8-78)
[2017-11-16] MEDS: Oxycodone/Acetaminophen 5/325 mg Tab PO PRN (17:58)
--- NOTE | 2017-11-16 23:28 | CP.PCM.PN ---
Subjective - Date & Time of Evaluation Date of Evaluation: 11/16/17 Time of Evaluation: 14:20 - Subjective Subjective: Still has sob and wheeze, off bipap Denies fever or chills Objective - Vital Signs/Intake and Output Vital Signs (last 24 hours): Temp Pulse Resp BP Pulse Ox 98.7 F 87 17 128/84 99 11/16/17 20:00 11/16/17 22:00 11/16/17 22:00 11/16/17 22:00 11/16/17 22:00 Intake and Output: 11/16/17 11/17/17 18:59 06:59 Intake Total 2410 Output Total 500 Balance 1910 - Medications Medications: Current Medications Acetaminophen (Tylenol 325mg Tab) 975 mg PO ONCE PRN PRN Reason: Fever >100.4 F Acetaminophen (Tylenol 325mg Tab) 650 mg PO Q6 PRN PRN Reason: Headache Last Admin: 11/15/17 14:23 Dose: 650 mg Albuterol/Ipratropium (Duoneb 3 Mg/0.5 Mg (3 Ml) Ud) 3 ml INH RQ4 PRN PRN Reason: Shortness of Breath Last Admin: 11/16/17 00:00 Dose: 3 ml Albuterol/Ipratropium (Duoneb 3 Mg/0.5 Mg (3 Ml) Ud) 3 ml INH RQID [facility]NEY Last Admin: 11/16/17 19:19 Dose: 3 ml Enoxaparin Sodium (Lovenox) 40 mg SC DAILY S[facility]NEY PRN Reason: Protocol Last Admin: 11/16/17 08:13 Dose: 40 mg Ceftriaxone Sodium 1 gm/ (Sodium Chloride) 100 mls @ 100 mls/hr IVPB DAILY [facility] PRN Reason: Protocol Last Admin: 11/16/17 08:15 Dose: 100 mls/hr Azithromycin 500 mg/ Sodium (Chloride) 250 mls @ 250 mls/hr IVPB DAILY [facility]NEY PRN Reason: Protocol Last Admin: 11/16/17 09:00 Dose: 250 mls/hr Dextrose/Sodium Chloride (Dextrose 5%/0.45% Ns 1000 Ml) 1,000 mls @ 150 mls/hr IV .Q6H40M [facility]NEY Stop: 11/17/17 16:01 Last Admin: 11/16/17 21:16 Dose: 150 mls/hr Methylprednisolone (Solu-Medrol) 40 mg IVP Q8 [facility] Last Admin: 11/16/17 16:24 Dose: 40 mg Oxycodone/Acetaminophen (Percocet 5/325 Mg Tab) 1 tab PO Q6 PRN PRN Reason: Pain, moderate (4-7) Stop: 11/18/17 15:01 Last Admin: 11/16/17 17:58 Dose: 1 tab Pantoprazole Sodium (Protonix Ec Tab) 40 mg PO DAILY [facility] Last Admin: 11/16/17 08:13 Dose: 40 mg - Labs Labs: 11/16/17 04:45 11/16/17 04:45 PT 12.2 Seconds (9.8-13.1) 11/16/17 04:45 INR 1.1 (0.9-1.2) 11/16/17 04:45 APTT 34.1 Seconds (25.6-37.1) 11/16/17 04:45 - Constitutional Appears: Well, Non-toxic, No Acute Distress - Head Exam Head Exam: ATRAUMATIC - Respiratory Exam Respiratory Exam: Wheezes - Cardiovascular Exam Cardiovascular Exam: REGULAR RHYTHM, +S1, +S2 - GI/Abdominal Exam GI & Abdominal Exam: Soft, Normal Bowel Sounds - Neurological Exam Neurological Exam: Alert, Oriented x3 - Psychiatric Exam Psychiatric exam: Normal Affect - Skin Skin Exam: Normal Color, Warm Assessment and Plan (1) Status asthmaticus Assessment & Plan: continue duonebs solumedrol zithromax/rocephin O2 via NC, maintain saturation > 92% ICU monitor Status: Acute
[2017-11-17] MEDS: MethylPREDNISolone 40 mg Vial IVP SCH ×3 (01:03→16:11)
[2017-11-17] MEDS: Dextrose 5%/0.45% NS 1,000 ML IV SCH (03:54)
[2017-11-17] MEDS: Oxycodone/Acetaminophen 5/325 mg Tab PO PRN ×2 (05:12→13:43)
[2017-11-17 05:45] LABS: HEMOGLOBIN 12.8 g/dL (12.0-16.0); MEAN CELL VOLUME 99.2 fl (81.0-99.0); MEAN CORPUSCULAR HEMOGLOBIN 33.2 pg (27.0-31.0); MEAN CORPUSCULAR HGB CONC 33.5 g/dL (33.0-37.0); RBC 3.86 Mil/uL (3.80-5.20); RED CELL DISTRIBUTION WIDTH 13.6 % (11.5-14.5); WHITE BLOOD COUNT 10.4 K/uL (4.8-10.8)
[2017-11-17 06:08] LABS: ALBUMIN 3.4 g/dL (3.5-5.0); BLOOD UREA NITROGEN 9 mg/dl (7-17); CALCIUM 8.5 mg/dL (8.4-10.2); GFR AFRICAN-AMERICAN > 60; GFR NON-AFRICAN AMERICAN > 60
[2017-11-17 06:09] LABS: ALT/SGPT 86 U/L (9-52); AST/SGOT 34 U/L (14-36)
[2017-11-17] MEDS: Albuterol-Ipratrop 3 mg / 0.5 (3 ml) UD INH SCH ×4 (07:34→19:31)
--- NOTE | 2017-11-17 07:48 | PQF GENQUE ---
Dr. Brown, Please clarify type of asthma: if known Childhood Cough variant Exercise induced Late onset Mild intermittent Mild persistent Moderate persistent Severe persistent With bronchitis(please clarify acuity of bronchitis) With chronic lung disease (please document specific chronic lung disease) Other (please specify) Clinically unable to determine Unknown V/S tab: Respirations:28->20->20---->26-on 11/15:29->30 on 11/16: max: 25 ER note :Respiratory: Positive for: Decreased Breath Sounds, Accessory Muscle Use (mild), Wheezing (bl) Clinical Impression: Status asthmaticus H and P:remains blank regarding current dxs. Bakery Decorator: Impression:Acute hypoxic respiratory insufficiency, status asthmaticus, history of extrinsic asthma. We will continue with bilevel positive airway pressure until the patient is more stable. Continue DuoNeb 3 mL via nebulizer q.6 hours, short course of systemic steroid proton pump inhibitor, antibiotic Rocephin 1 g IV daily, Zithromax 500 mg IV daily, This form is a permanent part of the medical record Clarification of your documentation is requested to better reflect the severity of illness and intensity of treatment of your patient. Indicators present [] Specify: [] [] Specify: [] [] Specify: [] [] Specify: [] Location in the medical record that reflects the above clinical findings: [] Treatment Provided: [] PHYSICIAN'S RESPONSE Based on your medical judgment of the clinical indicators outlined above please clarify the following: [] Practitioner response [] If unable to determine, please check the box, sign and date. Present On Admission (POA) Indicator: [] Present at the time of admission [] Not present at the time of admission [] Clinically Undetermined In responding to this query, please exercise your independent professional judgment. The fact that a question is asked does not imply that any particular answer is desired or expected. Thank you for your clarification on this documentation. If you have any questions please call. * Thank you, Karmen Wiseman RN ext. #[phone] MTDD
[2017-11-17] MEDS: Enoxaparin 40 mg Syringe SC SCH (08:22)
[2017-11-17] MEDS: Pantoprazole 40 mg EC Tab PO SCH (08:23)
[2017-11-17] MEDS: Azithromycin 500 MG in Sodium Chloride 0.9% 250 ML IVPB SCH (09:18)
--- NOTE | 2017-11-17 21:00 | CP.PCM.PN ---
Subjective - Date & Time of Evaluation Date of Evaluation: 11/17/17 Time of Evaluation: 12:00 - Subjective Subjective: Less SOB, still has wheezing Feels slightly better Objective - Vital Signs/Intake and Output Vital Signs (last 24 hours): Temp Pulse Resp BP Pulse Ox 97.5 F L 72 18 121/82 95 11/17/17 18:10 11/17/17 18:10 11/17/17 18:10 11/17/17 18:10 11/17/17 18:10 Intake and Output: 11/17/17 11/18/17 18:59 06:59 Intake Total 710 Output Total 300 Balance 410 - Medications Medications: Current Medications Albuterol/Ipratropium (Duoneb 3 Mg/0.5 Mg (3 Ml) Ud) 3 ml INH RQ4 PRN PRN Reason: Shortness of Breath Last Admin: 11/16/17 00:00 Dose: 3 ml Albuterol/Ipratropium (Duoneb 3 Mg/0.5 Mg (3 Ml) Ud) 3 ml INH RQID [facility] Last Admin: 11/17/17 19:31 Dose: 3 ml Ceftriaxone Sodium 1 gm/ (Sodium Chloride) 100 mls @ 100 mls/hr IVPB DAILY S[facility]NEY PRN Reason: Protocol Last Admin: 11/17/17 08:19 Dose: 100 mls/hr Methylprednisolone (Solu-Medrol) 40 mg IVP Q8 [facility] Last Admin: 11/17/17 16:11 Dose: 40 mg Oxycodone/Acetaminophen (Percocet 5/325 Mg Tab) 1 tab PO Q6 PRN PRN Reason: Pain, moderate (4-7) Stop: 11/18/17 15:01 Last Admin: 11/17/17 13:43 Dose: 1 tab Pantoprazole Sodium (Protonix Ec Tab) 40 mg PO DAILY [facility] Last Admin: 11/17/17 08:23 Dose: 40 mg - Labs Labs: 11/17/17 04:40 11/17/17 04:40 PT 12.2 Seconds (9.8-13.1) 11/16/17 04:45 INR 1.1 (0.9-1.2) 11/16/17 04:45 APTT 34.1 Seconds (25.6-37.1) 11/16/17 04:45 - Constitutional Appears: Well, No Acute Distress - Head Exam Head Exam: ATRAUMATIC - Respiratory Exam Respiratory Exam: Wheezes, NORMAL BREATHING PATTERN - Cardiovascular Exam Cardiovascular Exam: REGULAR RHYTHM, +S1, +S2 - GI/Abdominal Exam GI & Abdominal Exam: Soft, Normal Bowel Sounds - Neurological Exam Neurological Exam: Alert, Oriented x3 - Psychiatric Exam Psychiatric exam: Normal Affect, Normal Mood - Skin Skin Exam: Normal Color, Warm Assessment and Plan (1) Status asthmaticus Assessment & Plan: Duonebs solumedrol antibiotics dvt prophylaxis transfer to med/surg Status: Acute
[2017-11-18] MEDS: Albuterol-Ipratrop 3 mg / 0.5 (3 ml) UD INH PRN ×2 (00:33→23:59)
[2017-11-18] MEDS: MethylPREDNISolone 40 mg Vial IVP SCH ×3 (00:48→16:55)
[2017-11-18] MEDS: Oxycodone/Acetaminophen 5/325 mg Tab PO PRN ×2 (01:15→13:31)
[2017-11-18 06:34] LABS: HEMOGLOBIN 12.4 g/dL (12.0-16.0); MEAN CELL VOLUME 98.3 fl (81.0-99.0); MEAN CORPUSCULAR HEMOGLOBIN 32.8 pg (27.0-31.0); MEAN CORPUSCULAR HGB CONC 33.4 g/dL (33.0-37.0); RBC 3.78 Mil/uL (3.80-5.20); RED CELL DISTRIBUTION WIDTH 13.6 % (11.5-14.5); WHITE BLOOD COUNT 10.6 K/uL (4.8-10.8)
[2017-11-18 06:57] LABS: BLOOD UREA NITROGEN 13 mg/dl (7-17); GFR AFRICAN-AMERICAN > 60; GFR NON-AFRICAN AMERICAN > 60
[2017-11-18 06:58] LABS: CALCIUM 8.6 mg/dL (8.4-10.2)
[2017-11-18] MEDS: Albuterol-Ipratrop 3 mg / 0.5 (3 ml) UD INH SCH ×4 (08:07→19:35)
[2017-11-18] MEDS: Pantoprazole 40 mg EC Tab PO SCH (10:40)
[2017-11-18] MEDS: Azithromycin 500 MG in Sodium Chloride 0.9% 250 ML IVPB SCH (21:23)
[2017-11-18] MEDS: Enoxaparin 40 mg Syringe SC SCH (21:23)
[2017-11-19] MEDS: MethylPREDNISolone 40 mg Vial IVP SCH ×3 (00:29→16:49)
[2017-11-19] MEDS: Oxycodone/Acetaminophen 5/325 mg Tab PO PRN ×3 (03:31→16:48)
[2017-11-19] MEDS: Albuterol-Ipratrop 3 mg / 0.5 (3 ml) UD INH SCH ×4 (07:11→19:46)
[2017-11-19] MEDS: Pantoprazole 40 mg EC Tab PO SCH (08:19)
[2017-11-19] MEDS: Enoxaparin 40 mg Syringe SC SCH (08:19)
[2017-11-19] MEDS: Azithromycin 500 MG in Sodium Chloride 0.9% 250 ML IVPB SCH (21:52)
[2017-11-20] MEDS: MethylPREDNISolone 40 mg Vial IVP SCH ×3 (00:17→17:31)
[2017-11-20] MEDS: Oxycodone/Acetaminophen 5/325 mg Tab PO PRN ×3 (05:46→18:40)
[2017-11-20] MEDS: Albuterol-Ipratrop 3 mg / 0.5 (3 ml) UD INH SCH ×4 (08:15→19:06)
[2017-11-20] MEDS: Enoxaparin 40 mg Syringe SC SCH (09:27)
[2017-11-20] MEDS: Pantoprazole 40 mg EC Tab PO SCH (09:28)
--- NOTE | 2017-11-20 22:05 | CP.PCM.PN ---
Subjective - Date & Time of Evaluation Date of Evaluation: 11/20/17 Time of Evaluation: 16:10 - Subjective Subjective: Erwin better yesterday, but this am not feeling so good Has wheezing, VEL[place]ZQUEZ. denies chest pain, fever or chills Objective - Vital Signs/Intake and Output Vital Signs (last 24 hours): Temp Pulse Resp BP Pulse Ox 97.6 F 75 20 135/86 89 L 11/20/17 16:05 11/20/17 16:05 11/20/17 16:05 11/20/17 16:05 11/20/17 16:05 - Medications Medications: Current Medications Albuterol/Ipratropium (Duoneb 3 Mg/0.5 Mg (3 Ml) Ud) 3 ml INH RQ4 PRN PRN Reason: Shortness of Breath Last Admin: 11/18/17 23:59 Dose: 3 ml Albuterol/Ipratropium (Duoneb 3 Mg/0.5 Mg (3 Ml) Ud) 3 ml INH RQID [facility] Last Admin: 11/20/17 19:06 Dose: 3 ml Alprazolam (Xanax) 0.5 mg PO HS PRN PRN Reason: Anxiety Last Admin: 11/20/17 00:27 Dose: 0.5 mg Enoxaparin Sodium (Lovenox) 40 mg SC DAILY [facility] PRN Reason: Protocol Last Admin: 11/20/17 09:27 Dose: 40 mg Azithromycin 500 mg/ Sodium (Chloride) 250 mls @ 250 mls/hr IVPB DAILY@2100 [facility] PRN Reason: Protocol Last Admin: 11/19/17 21:52 Dose: 250 mls/hr Ceftriaxone Sodium 1 gm/ (Sodium Chloride) 100 mls @ 100 mls/hr IVPB DAILY [facility] PRN Reason: Protocol Last Admin: 11/20/17 09:28 Dose: 100 mls/hr Methylprednisolone (Solu-Medrol) 40 mg IVP Q8 [facility] Last Admin: 11/20/17 17:31 Dose: 40 mg Oxycodone/Acetaminophen (Percocet 5/325 Mg Tab) 1 tab PO Q6 PRN PRN Reason: Pain, moderate (4-7) Stop: 11/21/17 22:16 Last Admin: 11/20/17 18:40 Dose: 1 tab Pantoprazole Sodium (Protonix Ec Tab) 40 mg PO DAILY [facility] Last Admin: 11/20/17 09:28 Dose: 40 mg - Labs Labs: 11/18/17 05:30 11/18/17 05:30 PT 12.2 Seconds (9.8-13.1) 11/16/17 04:45 INR 1.1 (0.9-1.2) 11/16/17 04:45 APTT 34.1 Seconds (25.6-37.1) 11/16/17 04:45 - Constitutional Appears: Well, No Acute Distress - Head Exam Head Exam: ATRAUMATIC - Respiratory Exam Respiratory Exam: Wheezes, NORMAL BREATHING PATTERN - Cardiovascular Exam Cardiovascular Exam: REGULAR RHYTHM, +S1, +S2 - GI/Abdominal Exam GI & Abdominal Exam: Soft, Normal Bowel Sounds - Neurological Exam Neurological Exam: Alert, Oriented x3 - Psychiatric Exam Psychiatric exam: Normal Affect, Normal Mood - Skin Skin Exam: Normal Color, Warm Assessment and Plan (1) Status asthmaticus Assessment & Plan: Duonebs O2 as needed Zithromax/Rocephin Solumedrol Pulmonary consult Status: Acute
[2017-11-20] MEDS: Azithromycin 500 MG in Sodium Chloride 0.9% 250 ML IVPB SCH (22:45)
[2017-11-20] MEDS: Albuterol-Ipratrop 3 mg / 0.5 (3 ml) UD INH PRN (23:53)
[2017-11-21] MEDS: MethylPREDNISolone 40 mg Vial IVP SCH ×3 (02:06→16:50)
[2017-11-21] MEDS: Oxycodone/Acetaminophen 5/325 mg Tab PO PRN ×3 (03:11→18:28)
[2017-11-21] MEDS: Albuterol-Ipratrop 3 mg / 0.5 (3 ml) UD INH SCH ×4 (07:14→19:18)
[2017-11-21] MEDS ORDERED: Sodium Chloride 3% for Inhalation 4 ML VIAL.NEB IH PRN (08:44)
[2017-11-21] MEDS: Enoxaparin 40 mg Syringe SC SCH (09:48)
[2017-11-21] MEDS: Pantoprazole 40 mg EC Tab PO SCH (09:50)
--- NOTE | 2017-11-21 18:42 | CP.PCM.PN ---
Subjective - Date & Time of Evaluation Date of Evaluation: 11/21/17 Time of Evaluation: 11:35 - Subjective Subjective: Feels tight and still wheezing. Has VELÁZQUEZ. Denies fever or chills Objective - Vital Signs/Intake and Output Vital Signs (last 24 hours): Temp Pulse Resp BP Pulse Ox 98.2 F 92 H 20 124/74 96 11/21/17 15:35 11/21/17 15:35 11/21/17 15:35 11/21/17 15:35 11/21/17 15:35 - Medications Medications: Current Medications Acetylcysteine (Acetylcysteine 20%) 2 ml INH RBID [facility] Albuterol/Ipratropium (Duoneb 3 Mg/0.5 Mg (3 Ml) Ud) 3 ml INH RQ4 PRN PRN Reason: Shortness of Breath Last Admin: 11/20/17 23:53 Dose: 3 ml Albuterol/Ipratropium (Duoneb 3 Mg/0.5 Mg (3 Ml) Ud) 3 ml INH RQID [facility] Last Admin: 11/21/17 15:27 Dose: 3 ml Alprazolam (Xanax) 0.5 mg PO HS PRN PRN Reason: Anxiety Last Admin: 11/20/17 22:45 Dose: 0.5 mg Budesonide (Pulmicort Respules) 0.25 mg INH RBID [facility] Enoxaparin Sodium (Lovenox) 40 mg SC DAILY [facility] PRN Reason: Protocol Last Admin: 11/21/17 09:48 Dose: 40 mg Azithromycin 500 mg/ Sodium (Chloride) 250 mls @ 250 mls/hr IVPB DAILY@2100 [facility] PRN Reason: Protocol Last Admin: 11/20/17 22:45 Dose: 250 mls/hr Ceftriaxone Sodium 1 gm/ (Dextrose) 100 mls @ 100 mls/hr IVPB DAILY [facility] PRN Reason: Protocol Methylprednisolone (Solu-Medrol) 40 mg IVP Q8 [facility] Last Admin: 11/21/17 16:50 Dose: 40 mg Oxycodone/Acetaminophen (Percocet 5/325 Mg Tab) 1 tab PO Q6 PRN PRN Reason: Pain, moderate (4-7) Stop: 11/21/17 22:16 Last Admin: 11/21/17 18:28 Dose: 1 tab Pantoprazole Sodium (Protonix Ec Tab) 40 mg PO DAILY [facility] Last Admin: 11/21/17 09:50 Dose: 40 mg - Labs Labs: 11/18/17 05:30 11/18/17 05:30 PT 12.2 Seconds (9.8-13.1) 11/16/17 04:45 INR 1.1 (0.9-1.2) 11/16/17 04:45 APTT 34.1 Seconds (25.6-37.1) 11/16/17 04:45 - Constitutional Appears: Well, No Acute Distress - Head Exam Head Exam: ATRAUMATIC - Respiratory Exam Respiratory Exam: Wheezes, NORMAL BREATHING PATTERN - Cardiovascular Exam Cardiovascular Exam: REGULAR RHYTHM, +S1, +S2 - GI/Abdominal Exam GI & Abdominal Exam: Soft, Normal Bowel Sounds - Neurological Exam Neurological Exam: Alert, Oriented x3 - Psychiatric Exam Psychiatric exam: Normal Affect, Normal Mood - Skin Skin Exam: Normal Color, Warm Assessment and Plan (1) Status asthmaticus Assessment & Plan: continue abx duonebs solumedrol add pulmicort inhalation bid pulmonary consult appreciated Status: Acute
[2017-11-21] MEDS: Acetylcysteine 20% Inhal Soln (4ml) INH SCH (19:20)
[2017-11-21] MEDS: Budesonide 0.25 mg/2 ml Inhal Susp UD INH SCH (19:22)
[2017-11-21] MEDS: Azithromycin 500 MG in Sodium Chloride 0.9% 250 ML IVPB SCH (21:13)
[2017-11-21] MEDS: Albuterol-Ipratrop 3 mg / 0.5 (3 ml) UD INH PRN (23:16)
[2017-11-22] MEDS: MethylPREDNISolone 40 mg Vial IVP SCH ×3 (00:16→17:32)
[2017-11-22] MEDS ORDERED: Oxycodone/Acetaminophen 5/325 mg Tab PO STA (04:10)
[2017-11-22 06:30] LABS: HEMOGLOBIN 13.8 g/dL (12.0-16.0); MEAN CELL VOLUME 98.5 fl (81.0-99.0); MEAN CORPUSCULAR HEMOGLOBIN 32.6 pg (27.0-31.0); MEAN CORPUSCULAR HGB CONC 33.1 g/dL (33.0-37.0); RBC 4.23 Mil/uL (3.80-5.20); RED CELL DISTRIBUTION WIDTH 13.5 % (11.5-14.5); WHITE BLOOD COUNT 16.9 K/uL (4.8-10.8)
[2017-11-22] MEDS: Acetylcysteine 20% Inhal Soln (4ml) INH SCH ×2 (07:34→19:00)
[2017-11-22] MEDS: Albuterol-Ipratrop 3 mg / 0.5 (3 ml) UD INH SCH ×4 (07:34→19:00)
[2017-11-22] MEDS: Budesonide 0.25 mg/2 ml Inhal Susp UD INH SCH ×2 (07:37→19:00)
[2017-11-22 07:39] LABS: BLOOD UREA NITROGEN 18 mg/dl (7-17); CALCIUM 8.8 mg/dL (8.4-10.2); GFR AFRICAN-AMERICAN > 60; GFR NON-AFRICAN AMERICAN > 60
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
[2017-11-22] MEDS: Enoxaparin 40 mg Syringe SC SCH (08:44)
[2017-11-22] MEDS: Pantoprazole 40 mg EC Tab PO SCH (08:45)
--- NOTE | 2017-11-22 11:20 | CP.PCM.PN ---
Subjective - Date & Time of Evaluation Date of Evaluation: 11/22/17 Time of Evaluation: 11:21 - Subjective Subjective: STILL HAS MILD EXERTIONAL DYSPNEA COUGH PERSISTS Objective - Vital Signs/Intake and Output Vital Signs (last 24 hours): Temp Pulse Resp BP Pulse Ox 97.4 F L 60 20 116/74 99 11/22/17 08:13 11/22/17 08:13 11/22/17 08:13 11/22/17 08:13 11/22/17 08:13 - Medications Medications: Current Medications Acetylcysteine (Acetylcysteine 20%) 2 ml INH RBID [facility] Last Admin: 11/22/17 07:34 Dose: 2 ml Albuterol/Ipratropium (Duoneb 3 Mg/0.5 Mg (3 Ml) Ud) 3 ml INH RQ4 PRN PRN Reason: Shortness of Breath Last Admin: 11/21/17 23:16 Dose: 3 ml Albuterol/Ipratropium (Duoneb 3 Mg/0.5 Mg (3 Ml) Ud) 3 ml INH RQID [facility] Last Admin: 11/22/17 07:34 Dose: 3 ml Alprazolam (Xanax) 0.5 mg PO HS PRN PRN Reason: Anxiety Last Admin: 11/21/17 22:20 Dose: 0.5 mg Budesonide (Pulmicort Respules) 0.25 mg INH RBID [facility] Last Admin: 11/22/17 07:37 Dose: 0.25 mg Enoxaparin Sodium (Lovenox) 40 mg SC DAILY [facility] PRN Reason: Protocol Last Admin: 11/22/17 08:44 Dose: 40 mg Azithromycin 500 mg/ Sodium (Chloride) 250 mls @ 250 mls/hr IVPB DAILY@2100 [facility] PRN Reason: Protocol Last Admin: 11/21/17 21:13 Dose: 250 mls/hr Ceftriaxone Sodium 1 gm/ (Dextrose) 100 mls @ 100 mls/hr IVPB DAILY [facility] PRN Reason: Protocol Last Admin: 11/22/17 08:45 Dose: 100 mls/hr Methylprednisolone (Solu-Medrol) 40 mg IVP Q8 [facility] Last Admin: 11/22/17 08:44 Dose: 40 mg Pantoprazole Sodium (Protonix Ec Tab) 40 mg PO DAILY [facility] Last Admin: 11/22/17 08:45 Dose: 40 mg - Labs Labs: 11/22/17 06:00 11/22/17 06:00 PT 12.2 Seconds (9.8-13.1) 11/16/17 04:45 INR 1.1 (0.9-1.2) 11/16/17 04:45 APTT 34.1 Seconds (25.6-37.1) 11/16/17 04:45 - Constitutional Appears: No Acute Distress - Head Exam Head Exam: ATRAUMATIC, NORMAL INSPECTION, NORMOCEPHALIC - Eye Exam Eye Exam: EOMI, Normal appearance, PERRL Pupil Exam: NORMAL ACCOMODATION, PERRL - ENT Exam ENT Exam: Mucous Membranes Moist, Normal Exam - Neck Exam Neck Exam: Full ROM, Normal Inspection. absent: Lymphadenopathy - Respiratory Exam Respiratory Exam: Decreased Breath Sounds, Prolonged Expiratory Phase, Wheezes, NORMAL BREATHING PATTERN - Cardiovascular Exam Cardiovascular Exam: REGULAR RHYTHM, +S1, +S2. absent: Murmur - GI/Abdominal Exam GI & Abdominal Exam: Soft, Normal Bowel Sounds. absent: Tenderness - Rectal Exam Rectal Exam: NORMAL INSPECTION - Extremities Exam Extremities Exam: Full ROM, Normal Capillary Refill, Normal Inspection. absent : Joint Swelling, Pedal Edema - Back Exam Back Exam: NORMAL INSPECTION - Neurological Exam Neurological Exam: Alert, Awake, CN II-XII Intact, Normal Gait, Oriented x3 - Psychiatric Exam Psychiatric exam: Normal Affect, Normal Mood - Skin Skin Exam: Dry, Intact, Normal Color, Warm Assessment and Plan - Assessment and Plan (Free Text) Assessment: ASTHMA IMPROVING Plan: CONTINUE CURRENT RX TAPER STEROIDS
[2017-11-22] MEDS: Oxycodone/Acetaminophen 5/325 mg Tab PO PRN ×2 (12:18→18:24)
--- NOTE | 2017-11-22 19:00 | CP.PCM.PN ---
Subjective - Date & Time of Evaluation Date of Evaluation: 11/22/17 Time of Evaluation: 17:30 - Subjective Subjective: Feels a little better today. Still gets [place]. Denies fever or chills Objective - Vital Signs/Intake and Output Vital Signs (last 24 hours): Temp Pulse Resp BP Pulse Ox 98.1 F 78 20 119/79 97 11/22/17 15:53 11/22/17 15:53 11/22/17 15:53 11/22/17 15:53 11/22/17 15:53 - Medications Medications: Current Medications Acetylcysteine (Acetylcysteine 20%) 2 ml INH RBID [facility] Last Admin: 11/22/17 07:34 Dose: 2 ml Albuterol/Ipratropium (Duoneb 3 Mg/0.5 Mg (3 Ml) Ud) 3 ml INH RQ4 PRN PRN Reason: Shortness of Breath Last Admin: 11/21/17 23:16 Dose: 3 ml Albuterol/Ipratropium (Duoneb 3 Mg/0.5 Mg (3 Ml) Ud) 3 ml INH RQID [facility] Last Admin: 11/22/17 15:24 Dose: 3 ml Alprazolam (Xanax) 0.5 mg PO HS PRN PRN Reason: Anxiety Last Admin: 11/21/17 22:20 Dose: 0.5 mg Budesonide (Pulmicort Respules) 0.25 mg INH RBID [facility] Last Admin: 11/22/17 07:37 Dose: 0.25 mg Enoxaparin Sodium (Lovenox) 40 mg SC DAILY [facility] PRN Reason: Protocol Last Admin: 11/22/17 08:44 Dose: 40 mg Azithromycin 500 mg/ Sodium (Chloride) 250 mls @ 250 mls/hr IVPB DAILY@2100 [facility] PRN Reason: Protocol Last Admin: 11/21/17 21:13 Dose: 250 mls/hr Ceftriaxone Sodium 1 gm/ (Dextrose) 100 mls @ 100 mls/hr IVPB DAILY [facility] PRN Reason: Protocol Last Admin: 11/22/17 08:45 Dose: 100 mls/hr Methylprednisolone (Solu-Medrol) 40 mg IVP Q8 [facility] Last Admin: 11/22/17 17:32 Dose: 40 mg Oxycodone/Acetaminophen (Percocet 5/325 Mg Tab) 1 tab PO Q6 PRN PRN Reason: Pain, moderate (4-7) Stop: 11/25/17 11:47 Last Admin: 11/22/17 18:24 Dose: 1 tab Pantoprazole Sodium (Protonix Ec Tab) 40 mg PO DAILY [facility] Last Admin: 11/22/17 08:45 Dose: 40 mg - Labs Labs: 11/22/17 06:00 11/22/17 06:00 PT 12.2 Seconds (9.8-13.1) 11/16/17 04:45 INR 1.1 (0.9-1.2) 11/16/17 04:45 APTT 34.1 Seconds (25.6-37.1) 11/16/17 04:45 - Constitutional Appears: Well, No Acute Distress - Head Exam Head Exam: ATRAUMATIC - Respiratory Exam Respiratory Exam: Wheezes, NORMAL BREATHING PATTERN - Cardiovascular Exam Cardiovascular Exam: REGULAR RHYTHM, +S1, +S2 - GI/Abdominal Exam GI & Abdominal Exam: Soft, Normal Bowel Sounds - Neurological Exam Neurological Exam: Alert, Oriented x3 - Psychiatric Exam Psychiatric exam: Normal Affect, Normal Mood - Skin Skin Exam: Normal Color, Warm Assessment and Plan (1) Status asthmaticus Assessment & Plan: continue abx steroids respiratory treatments pulmonary on board dvt prophylaxis Status: Acute
[2017-11-22] MEDS: Azithromycin 500 MG in Sodium Chloride 0.9% 250 ML IVPB SCH (20:57)
[2017-11-23] MEDS: Albuterol-Ipratrop 3 mg / 0.5 (3 ml) UD INH PRN ×2 (00:53→23:22)
[2017-11-23] MEDS: Oxycodone/Acetaminophen 5/325 mg Tab PO PRN ×4 (01:41→21:28)
[2017-11-23] MEDS: MethylPREDNISolone 40 mg Vial IVP SCH ×2 (03:48→08:26)
[2017-11-23] MEDS: Budesonide 0.25 mg/2 ml Inhal Susp UD INH SCH ×2 (07:27→19:34)
[2017-11-23] MEDS: Albuterol-Ipratrop 3 mg / 0.5 (3 ml) UD INH SCH ×4 (07:27→19:34)
[2017-11-23] MEDS: Acetylcysteine 20% Inhal Soln (4ml) INH SCH ×2 (07:28→19:33)
--- NOTE | 2017-11-23 07:45 | CP.PCM.PN ---
Subjective - Date & Time of Evaluation Date of Evaluation: 11/23/17 Time of Evaluation: 07:45 - Subjective Subjective: SHORTNESS OF BREATH IMPROVING SLEEPING PEACEFULLY BUT C/O COUGH WITH THICK MUCOID SPUTUM ON AWAKENING Objective - Vital Signs/Intake and Output Vital Signs (last 24 hours): Temp Pulse Resp BP Pulse Ox 97.5 F L 73 18 145/84 97 11/23/17 01:00 11/23/17 01:00 11/23/17 01:00 11/23/17 01:00 11/23/17 01:00 - Medications Medications: Current Medications Acetylcysteine (Acetylcysteine 20%) 2 ml INH RBID [facility]PL[facility] Last Admin: 11/23/17 07:28 Dose: 2 ml Albuterol/Ipratropium (Duoneb 3 Mg/0.5 Mg (3 Ml) Ud) 3 ml INH RQ4 PRN PRN Reason: Shortness of Breath Last Admin: 11/23/17 00:53 Dose: 3 ml Albuterol/Ipratropium (Duoneb 3 Mg/0.5 Mg (3 Ml) Ud) 3 ml INH RQID [facility] Last Admin: 11/23/17 07:27 Dose: 3 ml Alprazolam (Xanax) 0.5 mg PO HS PRN PRN Reason: Anxiety Last Admin: 11/22/17 23:09 Dose: 0.5 mg Budesonide (Pulmicort Respules) 0.25 mg INH RBID [facility] Last Admin: 11/22/17 19:00 Dose: 0.25 mg Enoxaparin Sodium (Lovenox) 40 mg SC DAILY [facility] PRN Reason: Protocol Last Admin: 11/22/17 08:44 Dose: 40 mg Azithromycin 500 mg/ Sodium (Chloride) 250 mls @ 250 mls/hr IVPB DAILY@2100 [facility] PRN Reason: Protocol Last Admin: 11/22/17 20:57 Dose: 250 mls/hr Ceftriaxone Sodium 1 gm/ (Dextrose) 100 mls @ 100 mls/hr IVPB DAILY [facility] PRN Reason: Protocol Last Admin: 11/22/17 08:45 Dose: 100 mls/hr Methylprednisolone (Solu-Medrol) 40 mg IVP DAILY [facility] Oxycodone/Acetaminophen (Percocet 5/325 Mg Tab) 1 tab PO Q6 PRN PRN Reason: Pain, moderate (4-7) Stop: 11/25/17 11:47 Last Admin: 11/23/17 01:41 Dose: 1 tab Pantoprazole Sodium (Protonix Ec Tab) 40 mg PO DAILY [facility] Last Admin: 11/22/17 08:45 Dose: 40 mg - Labs Labs: 11/22/17 06:00 11/22/17 06:00 PT 12.2 Seconds (9.8-13.1) 11/16/17 04:45 INR 1.1 (0.9-1.2) 11/16/17 04:45 APTT 34.1 Seconds (25.6-37.1) 11/16/17 04:45 - Constitutional Appears: No Acute Distress - Head Exam Head Exam: ATRAUMATIC, NORMAL INSPECTION, NORMOCEPHALIC - Eye Exam Eye Exam: EOMI, Normal appearance, PERRL Pupil Exam: NORMAL ACCOMODATION, PERRL - ENT Exam ENT Exam: Mucous Membranes Moist, Normal Exam - Neck Exam Neck Exam: Full ROM, Normal Inspection. absent: Lymphadenopathy - Respiratory Exam Respiratory Exam: Prolonged Expiratory Phase, NORMAL BREATHING PATTERN - Cardiovascular Exam Cardiovascular Exam: REGULAR RHYTHM, +S1, +S2. absent: Murmur - GI/Abdominal Exam GI & Abdominal Exam: Soft, Normal Bowel Sounds. absent: Tenderness - Rectal Exam Rectal Exam: NORMAL INSPECTION - Extremities Exam Extremities Exam: Full ROM, Normal Capillary Refill, Normal Inspection. absent : Joint Swelling, Pedal Edema - Back Exam Back Exam: NORMAL INSPECTION - Neurological Exam Neurological Exam: Alert, Awake, CN II-XII Intact, Normal Gait, Oriented x3 - Psychiatric Exam Psychiatric exam: Normal Affect, Normal Mood - Skin Skin Exam: Dry, Intact, Normal Color, Warm Assessment and Plan - Assessment and Plan (Free Text) Assessment: ASTHMA-IMPROVING Plan: TAPER STEROIDS INCREASE ACTIVITY
[2017-11-23] MEDS: Pantoprazole 40 mg EC Tab PO SCH (08:19)
[2017-11-23] MEDS: Enoxaparin 40 mg Syringe SC SCH (08:20)
[2017-11-23] MEDS: Azithromycin 500 MG in Sodium Chloride 0.9% 250 ML IVPB SCH (21:22)
--- NOTE | 2017-11-23 22:15 | CP.PCM.PN ---
Subjective - Date & Time of Evaluation Date of Evaluation: 11/23/17 Time of Evaluation: 13:00 - Subjective Subjective: Feels a lot better today. Less SOB Wheezing is less. Denies fever or chills. Still using O2 via NC Objective - Vital Signs/Intake and Output Vital Signs (last 24 hours): Temp Pulse Resp BP Pulse Ox 97.3 F L 74 20 136/68 97 11/23/17 17:00 11/23/17 17:00 11/23/17 17:00 11/23/17 17:00 11/23/17 17:00 - Medications Medications: Current Medications Acetylcysteine (Acetylcysteine 20%) 2 ml INH RBID [facility] Last Admin: 11/23/17 19:33 Dose: Not Given Albuterol/Ipratropium (Duoneb 3 Mg/0.5 Mg (3 Ml) Ud) 3 ml INH RQ4 PRN PRN Reason: Shortness of Breath Last Admin: 11/23/17 00:53 Dose: 3 ml Albuterol/Ipratropium (Duoneb 3 Mg/0.5 Mg (3 Ml) Ud) 3 ml INH RQID [facility] Last Admin: 11/23/17 19:34 Dose: 3 ml Alprazolam (Xanax) 0.5 mg PO HS PRN PRN Reason: Anxiety Last Admin: 11/22/17 23:09 Dose: 0.5 mg Budesonide (Pulmicort Respules) 0.25 mg INH RBID [facility] Last Admin: 11/23/17 19:34 Dose: 0.25 mg Enoxaparin Sodium (Lovenox) 40 mg SC DAILY [facility] PRN Reason: Protocol Last Admin: 11/23/17 08:20 Dose: 40 mg Azithromycin 500 mg/ Sodium (Chloride) 250 mls @ 250 mls/hr IVPB DAILY@2100 [facility] PRN Reason: Protocol Last Admin: 11/23/17 21:22 Dose: 250 mls/hr Ceftriaxone Sodium 1 gm/ (Dextrose) 100 mls @ 100 mls/hr IVPB DAILY [facility] PRN Reason: Protocol Last Admin: 11/23/17 08:20 Dose: 100 mls/hr Methylprednisolone (Solu-Medrol) 40 mg IVP DAILY [facility] Last Admin: 11/23/17 08:26 Dose: 40 mg Oxycodone/Acetaminophen (Percocet 5/325 Mg Tab) 1 tab PO Q6 PRN PRN Reason: Pain, moderate (4-7) Stop: 11/25/17 11:47 Last Admin: 11/23/17 21:28 Dose: 1 tab Pantoprazole Sodium (Protonix Ec Tab) 40 mg PO DAILY [facility] Last Admin: 11/23/17 08:19 Dose: 40 mg - Labs Labs: 11/22/17 06:00 11/22/17 06:00 PT 12.2 Seconds (9.8-13.1) 11/16/17 04:45 INR 1.1 (0.9-1.2) 11/16/17 04:45 APTT 34.1 Seconds (25.6-37.1) 11/16/17 04:45 - Constitutional Appears: Well, No Acute Distress - Head Exam Head Exam: ATRAUMATIC - Respiratory Exam Respiratory Exam: Wheezes (slight, scattered), NORMAL BREATHING PATTERN - Cardiovascular Exam Cardiovascular Exam: REGULAR RHYTHM, +S1, +S2 - GI/Abdominal Exam GI & Abdominal Exam: Soft, Normal Bowel Sounds - Neurological Exam Neurological Exam: Alert, Oriented x3 - Psychiatric Exam Psychiatric exam: Normal Affect, Normal Mood - Skin Skin Exam: Normal Color, Warm Assessment and Plan (1) Status asthmaticus Assessment & Plan: continue same treatment decrease steriods PT to ambulate without O2 peak flow dvt prophylaxis Status: Acute
[2017-11-23 23:26] VITALS: RESP 18
[2017-11-24] MEDS: Oxycodone/Acetaminophen 5/325 mg Tab PO PRN ×2 (05:48→10:54)
[2017-11-24 08:06] VITALS: BP 125/84; PULSE 89; TEMP 97.7; O2SAT 97
[2017-11-24] MEDS: Budesonide 0.25 mg/2 ml Inhal Susp UD INH SCH (08:39)
[2017-11-24] MEDS: Acetylcysteine 20% Inhal Soln (4ml) INH SCH (08:39)
[2017-11-24] MEDS: Albuterol-Ipratrop 3 mg / 0.5 (3 ml) UD INH SCH ×2 (08:39→11:44)
[2017-11-24] MEDS: Enoxaparin 40 mg Syringe SC SCH (09:51)
[2017-11-24] MEDS: Pantoprazole 40 mg EC Tab PO SCH (09:52)
[2017-11-24] MEDS: MethylPREDNISolone 40 mg Vial IVP SCH (09:54)
[2017-11-24] MEDS ORDERED: Oxycodone/Acetaminophen 5/325 mg Tab PO ONE (14:00)
--- NOTE | 2017-11-25 00:01 | CP.PCM.DIS ---
Provider - Provider Date of Admission: 11/14/17 13:50 Attending physician: Luigi Brown MD Time Spent in preparation of Discharge (in minutes): 25 Diagnosis - Discharge Diagnosis (1) Status asthmaticus Status: Acute Priority: High (2) Anxiety Status: Chronic (3) Chronic back pain Status: Chronic Hospital Course - Lab Results Lab Results: Micro Results 11/21/17 14:30 Sputum Induced Gram Stain - Final 11/21/17 14:30 Sputum Induced Sputum Culture - Final NORMAL ORAL GREGORY 11/14/17 11:32 Blood Blood Culture - Final NO GROWTH AFTER 5 DAYS 11/14/17 11:32 Blood Gram Stain - Final TEST NOT PERFORMED 11/14/17 11:32 Blood Blood Culture - Final NO GROWTH AFTER 5 DAYS 11/14/17 11:32 Blood Gram Stain - Final TEST NOT PERFORMED 11/17/17 18:00 Nose MRSA Culture (Admit) - Final MRSA NOT DETECTED 11/14/17 05:10 Nose MRSA Culture (Admit) - Final MRSA NOT DETECTED 11/14/17 14:29 Urine Urine Culture - Final 10-50,000 CFU/ML. MULTIPLE SPECIES. PROBABLE CONTAMINATION. Most Recent Lab Values WBC 16.9 K/uL (4.8-10.8) H D 11/22/17 06:00 RBC 4.23 Mil/uL (3.80-5.20) 11/22/17 06:00 Hgb 13.8 g/dL (12.0-16.0) 11/22/17 06:00 Hct 41.7 % (34.0-47.0) 11/22/17 06:00 MCV 98.5 fl (81.0-99.0) 11/22/17 06:00 MCH 32.6 pg (27.0-31.0) H 11/22/17 06:00 MCHC 33.1 g/dL (33.0-37.0) 11/22/17 06:00 RDW 13.5 % (11.5-14.5) 11/22/17 06:00 Plt Count 223 K/uL (130-400) 11/22/17 06:00 MPV 9.1 fl (7.2-11.7) 11/16/17 04:45 Neut % (Auto) 76.3 % (50.0-75.0) H 11/16/17 04:45 Lymph % (Auto) 18.6 % (20.0-40.0) L 11/16/17 04:45 Vernon % (Auto) 5.1 % (0.0-10.0) 11/16/17 04:45 Eos % (Auto) 0.0 % (0.0-4.0) 11/16/17 04:45 Baso % (Auto) 0.0 % (0.0-2.0) 11/16/17 04:45 Neut # (Auto) 11.3 K/uL (1.8-7.0) H 11/16/17 04:45 Lymph # (Auto) 2.7 K/uL (1.0-4.3) 11/16/17 04:45 Vernon # (Auto) 0.8 K/uL (0.0-0.8) 11/16/17 04:45 Eos # (Auto) 0.0 K/uL (0.0-0.7) 11/16/17 04:45 Baso # (Auto) 0.0 K/uL (0.0-0.2) 11/16/17 04:45 PT 12.2 Seconds (9.8-13.1) 11/16/17 04:45 INR 1.1 (0.9-1.2) 11/16/17 04:45 APTT 34.1 Seconds (25.6-37.1) 11/16/17 04:45 pCO2 41 mm/Hg (35-45) 11/14/17 10:57 pO2 114 mm/Hg (80-100) H 11/14/17 10:57 HCO3 23.1 mmol/L (21-28) 11/14/17 10:57 ABG pH 7.36 (7.35-7.45) 11/14/17 10:57 ABG Total CO2 24.5 mmol/L (22-28) 11/14/17 10:57 ABG O2 Saturation 100.7 % (95-98) H 11/14/17 10:57 ABG Base Excess -2.2 mmol/L (-2.0-3.0) L 11/14/17 10:57 Patrick Test Yes 11/14/17 10:57 ABG Potassium 3.8 mmol/L (3.6-5.2) 11/14/17 10:57 A-a O2 Difference 120.0 mm/Hg 11/14/17 10:57 Sodium 141.0 mmol/L (132-148) 11/14/17 10:57 Chloride 107.0 mmol/L (98-107) 11/14/17 10:57 Glucose 133 mg/dL (65-105) H 11/14/17 10:57 Lactate 1.6 mmol/L (0.7-2.1) 11/14/17 10:57 Vent Mode Bipap 11/14/17 10:57 Mechanical Rate 12 11/14/17 10:57 FiO2 40.0 % 11/14/17 10:57 Inspiratory BiPAP 12 11/14/17 10:57 Expiratory BiPAP 6 11/14/17 10:57 Sodium 139 mmol/l (132-148) 11/22/17 06:00 Potassium 4.5 MMOL/L (3.6-5.0) 11/22/17 06:00 Chloride 98 mmol/L (98-107) 11/22/17 06:00 Carbon Dioxide 28 mmol/L (22-30) 11/22/17 06:00 Anion Gap 18 (10-20) 11/22/17 06:00 BUN 18 mg/dl (7-17) H 11/22/17 06:00 Creatinine 0.5 mg/dl (0.7-1.2) L 11/22/17 06:00 Est GFR ( Amer) > 60 11/22/17 06:00 Est GFR (Non-Af Amer) > 60 11/22/17 06:00 POC Glucose (mg/dL) 143 mg/dL (65-110) H 11/14/17 11:46 Random Glucose 153 mg/dL (65-105) H 11/22/17 06:00 Calcium 8.8 mg/dL (8.4-10.2) 11/22/17 06:00 Phosphorus 4.3 mg/dl (2.5-4.5) 11/14/17 11:32 Magnesium 2.2 MG/DL (1.6-2.3) 11/14/17 11:32 Total Bilirubin 0.3 mg/dl (0.2-1.3) 11/17/17 04:40 GGT 107 U/L (8-78) H 11/16/17 04:45 AST 34 U/L (14-36) 11/17/17 04:40 ALT 86 U/L (9-52) H 11/17/17 04:40 Alkaline Phosphatase 74 U/L (38-126) 11/17/17 04:40 Troponin I 0.0190 ng/mL (0.00-0.120) 11/14/17 11:32 NT-Pro-B Natriuret Pep 51.2 pg/ml (0-450) 11/14/17 11:32 Total Protein 6.7 G/DL (6.3-8.2) 11/17/17 04:40 Albumin 3.4 g/dL (3.5-5.0) L 11/17/17 04:40 Globulin 3.3 gm/dL (2.2-3.9) 11/17/17 04:40 Albumin/Globulin Ratio 1.0 (1.0-2.1) 11/17/17 04:40 TSH 3rd Generation 0.12 mIU/ML (0.46-4.68) L 11/16/17 04:45 Arterial Blood Potassium 3.8 mmol/L (3.6-5.2) 11/14/17 10:57 Urine Color Straw (YELLOW) 11/14/17 14:29 Urine Clarity Slighty-cloudy (Clear) 11/14/17 14:29 Urine pH 6.0 (5.0-8.0) 11/14/17 14:29 Ur Specific Tyler < 1.005 (1.003-1.030) 11/14/17 14:29 Urine Protein Negative mg/dL (NEGATIVE) 11/14/17 14:29 Urine Glucose (UA) Neg mg/dL (Normal) 11/14/17 14:29 Urine Ketones Negative mg/dL (NEGATIVE) 11/14/17 14:29 Urine Blood Small (NEGATIVE) 11/14/17 14:29 Urine Nitrate Negative (NEGATIVE) 11/14/17 14:29 Urine Bilirubin Negative (NEGATIVE) 11/14/17 14:29 Urine Urobilinogen 0.2-1.0 mg/dL (0.2-1.0) 11/14/17 14:29 Ur Leukocyte Esterase Neg Dre/uL (Negative) 11/14/17 14:29 Urine RBC (Auto) < 1 /hpf (0-3) 11/14/17 14:29 Ur Squamous Epith Cells 2 /hpf (0-5) 11/14/17 14:29 Urine Opiates Screen Negative (NEGATIVE) 11/14/17 21:15 Urine Methadone Screen Negative (NEGATIVE) 11/14/17 21:15 Ur Barbiturates Screen Negative (NEGATIVE) 11/14/17 21:15 Ur Phencyclidine Scrn Negative (NEGATIVE) 11/14/17 21:15 Ur Amphetamines Screen Negative (NEGATIVE) 11/14/17 21:15 U Benzodiazepines Scrn Negative (NEGATIVE) 11/14/17 21:15 U Oth Cocaine Metabols Negative (NEGATIVE) 11/14/17 21:15 U Cannabinoids Screen Positive (NEGATIVE) H 11/14/17 21:15 Hepatitis A IgM Ab Negative (NEGATIVE) 11/16/17 04:45 Hep Bs Antigen Negative (NEGATIVE) 11/16/17 04:45 Hep B Core IgM Ab Negative (NEGATIVE) 11/16/17 04:45 Hepatitis C Antibody Reactive (NEGATIVE) 11/16/17 04:45 HIV-1 Ab Rapid Screen Non reactive (NON REAC) 11/16/17 04:45 Influenza Typ A,B (EIA) Negative for flu a/b (NEGATIVE) 11/14/17 10:57 Discharge Exam - Head Exam Head Exam: ATRAUMATIC - Eye Exam Eye Exam: EOMI, Normal appearance, PERRL Pupil Exam: NORMAL ACCOMODATION, PERRL - Respiratory Exam Respiratory Exam: Decreased Breath Sounds. absent: Wheezes - GI/Abdominal Exam GI & Abdominal Exam: Normal Bowel Sounds - Neurological Exam Neurological exam: Alert, CN II-XII Intact, Normal Gait, Oriented x3, Reflexes Normal - Psychiatric Exam Psychiatric exam: Normal Affect, Normal Mood - Skin Skin Exam: Dry, Intact, Normal Color, Warm Discharge Plan - Discharge Medications Prescriptions: Fluticasone/Salmeterol 500/50 [Advair Diskus] 1 puff IH Q12 #1 puff Albuterol/Ipratropium [Duoneb 3 mg/0.5 mg (3 ml) UD] 3 ml INH RQ4 PRN #60 neb PRN Reason: Shortness Of Breath Methylprednisolone [Medrol Dose Pack (21 tabs)] 4 mg PO DAILY #21 mg Albuterol HFA [Ventolin HFA 90 mcg/actuation (8 g)] 2 puff IH Q4 PRN #1 inhaler PRN Reason: Shortness Of Breath - Follow Up Plan Condition: SERIOUS Disposition: HOME/ ROUTINE Instructions: Asthma, Adult (DC) Additional Instructions: follow up with primary MD 7-10 days. Referrals: [facility] [place] [Outside] Luigi Brown MD [Staff Provider] -
== END 2017-11-24 14:40 | disposition home or self-care (01) | DRG 96 ==
LOC: H.ER 10:36 → H.ERHOLD 13:50 → H.ICU/CCU 17:02 → H.MEDSURG1 11-17 18:00
PROVIDERS: ADMIT Internal Medicine; ATTEND Internal Medicine
PROC: 3E0234Z Introduction of Serum, Toxoid and Vaccine into Muscle, Percutaneous Approach (ICD-10-PCS; principal; 2017-11-14)
DX: J45.51 Severe persistent asthma with (acute) exacerbation (principal); J43.9 Emphysema, unspecified; E87.0 Hyperosmolality and hypernatremia; T17.998A Other foreign object in respiratory tract, part unspecified causing other injury, initial encounter; B19.20 Unspecified viral hepatitis C without hepatic coma; F41.9 Anxiety disorder, unspecified; G89.29 Other chronic pain; Z87.891 Personal history of nicotine dependence; R06.89 Other abnormalities of breathing; Z88.6 Allergy status to analgesic agent; Z23 Encounter for immunization; F32.9 Major depressive disorder, single episode, unspecified; Z91.14 Patient's other noncompliance with medication regimen; E86.0 Dehydration; J40 Bronchitis, not specified as acute or chronic; R79.89 Other specified abnormal findings of blood chemistry; X58.XXXA Exposure to other specified factors, initial encounter

== ENCOUNTER 2017-11-30 22:43 | Inpatient (IN) | payer MEDICAID ==
--- NOTE | 2017-11-30 23:30 | ED PDOC ---
HPI: Psych/Substance Abuse Time Seen by Provider: 11/30/17 22:54 Chief Complaint (Nursing): Psychiatric Evaluation Chief Complaint (Provider): PSYCHOSIS History Per: Patient History/Exam Limitations: no limitations Onset/Duration Of Symptoms: Days (today) Current Symptoms Are (Timing): Still Present Additional Complaint(s): Pt. states she will if she lets go of her wrist. States "he is going to kill me". She denies any suicidal or homicidal thoughts. No drugs, etoh. No weakness. No abd pain, nausea, vomit, diarrhea. Past Medical History Vital Signs: Last Vital Signs Temp 97.8 F 11/30/17 22:44 Pulse 102 H 11/30/17 22:44 Resp 16 11/30/17 22:44 BP 142/96 H 11/30/17 22:44 Pulse Ox 99 11/30/17 22:44 - Medical History PMH: Anxiety, Arthritis, Asthma, Bronchitis, Depression, Emphysema, Fractures ( ankles, c5 neck), Migraine Denies: Alzheimer's Disease, Anemia, Atrial Fibrillation, Bipolar Disorder, CAD, Cardia Arrhythmia, CHF, COPD, Crohn's Disease, Dementia, Diverticulitis, Gastritis, Gall Bladder Disease, HIV, HTN, Hypercholesterolemia, Hyperthyroidism , Hypothyroidism, Kidney Stones, Mitral Valve Prolapse, Multiple Sclerosis, Osteoporosis, Pancreatitis, Paranoia, Parkinson's Disease, Peripheral Edema, Pneumonia, Post Traumatic Stress Disorder, Pulmonary Embolism, Chronic Kidney Disease, Rheumatoid Arthritis, Schizophrenia, Seizures, Sickle Cell Disease, Sexually Transmitted Disease, Sleep Apnea, TIA - Surgical History Surgical History: Denies: Appendectomy, CABG, Carotid Endarterectomy, Cholecystectomy, Coronary Stent, Pacemaker, Tonsillectomy - Family History Family History: States: Unknown Family Hx - Home Medications Home Medications: Ambulatory Orders Medication Instructions Recorded Albuterol HFA [Ventolin HFA 90 2 puff IH Q4 PRN #1 inhaler 11/24/17 mcg/actuation (8 g)] Albuterol/Ipratropium [Duoneb 3 3 ml INH RQ4 PRN #60 neb 11/24/17 mg/0.5 mg (3 ml) UD] Fluticasone/Salmeterol 500/50 1 puff IH Q12 #1 puff 11/24/17 [Advair Diskus] Methylprednisolone [Medrol Dose 4 mg PO DAILY #21 mg 11/24/17 Pack (21 tabs)] - Allergies Allergies/Adverse Reactions: Allergies Allergy/AdvReac Type Severity Reaction Status Date / Time aspirin Allergy SHORTNESS Verified 11/30/17 22:44 OF BREATH mold Allergy SHORTNESS Verified 11/30/17 22:44 OF BREATH - ECG O2 Sat by Pulse Oximetry: 99 Pulse Ox Interpretation: Normal - Progress ED Course And Treament: 2334: Stable. Alert. Crisis aware to see pt. Will medicate pt. as she having an acute psychosis episode. Threat to self and staff. Dr. Hernandes to take over care. Disposition - Clinical Impression Clinical Impression: Psychosis - Patient ED Disposition Is Patient to be Admitted: Transfer of Care - Disposition Disposition: Transfer of Care Disposition Time: 23:35 Condition: FAIR Patient Signed Over To: Brittnee Hernandes
--- NOTE | 2017-11-30 23:51 | ED PDOC ---
- Laboratory Results Result Diagrams: 12/01/17 07:37 12/01/17 07:37 - ECG O2 Sat by Pulse Oximetry: 99 (RA) Pulse Ox Interpretation: Normal Medical Decision Making Medical Decision Making: Time: 0000 Patient signed out to me by Dr. Conner pending medical clearance, labs, crisis evaluation. Scribe Attestation: Documented by Hernan Patricio, acting as a scribe for Brittnee Hernandes MD Provider Scribe Attestation: All medical record entries made by the Scribe were at my direction and personally dictated by me. I have reviewed the chart and agree that the record accurately reflects my personal performance of the history, physical exam, medical decision making, and the department course for this patient. I have also personally directed, reviewed, and agree with the discharge instructions and disposition. Disposition - Clinical Impression Clinical Impression: Psychosis, UTI (urinary tract infection), Hypokalemia - POA Present On Arrival: None - Disposition Disposition: Transfer of Care Disposition Time: 07:00 Condition: STABLE Patient Signed Over To: Kaia An Handoff Comments: pending repeat labs and crisis eval
[2017-12-01 00:21] LABS: SQUAMOUS EPITHIAL 4 /hpf (0-5); URINE BACTERIA RARE (<OCC); URINE BILIRUBIN NEGATIVE (NEGATIVE); URINE BLOOD NEGATIVE (NEGATIVE); URINE CLARITY SLIGHTY-CLOUDY (Clear); URINE COLOR STRAW (YELLOW); URINE GLUCOSE (UA) NEG (Normal); URINE LEUKOCYTE ESTERASE SMALL Leu/uL (Negative); URINE PROTEIN NEGATIVE (NEGATIVE); URINE UROBILINOGEN 0.2-1.0 mg/dL (0.2-1.0)
[2017-12-01 00:23] LABS: BARBITURATES, UR NEGATIVE (NEGATIVE); BENZODIAZEPINES, UR NEGATIVE (NEGATIVE); OPIATES, UR NEGATIVE (NEGATIVE); PHENCYCLIDINE, UR NEGATIVE (NEGATIVE)
[2017-12-01 02:13] LABS: BASO % 0.1 % (0.0-2.0); HEMOGLOBIN 12.6 g/dL (12.0-16.0); LYMPH # 2.3 K/uL (1.0-4.3); LYMPH % 13.7 % (20.0-40.0); MEAN CELL VOLUME 97.1 fl (81.0-99.0); MEAN CORPUSCULAR HEMOGLOBIN 32.9 pg (27.0-31.0); MEAN CORPUSCULAR HGB CONC 33.9 g/dL (33.0-37.0); MEAN PLATELET VOLUME 7.7 fl (7.2-11.7); MONO # 1.2 K/uL (0.0-0.8); NEUT # 13.3 K/uL (1.8-7.0); NEUT % 79.2 % (50.0-75.0); RBC 3.82 Mil/uL (3.80-5.20); WHITE BLOOD COUNT 16.8 K/uL (4.8-10.8)
[2017-12-01 02:43] LABS: ALB/GLOB RATIO 1.1 (1.0-2.1); ALBUMIN 3.5 g/dL (3.5-5.0); ALT/SGPT 54 U/L (9-52); AST/SGOT 52 U/L (14-36); BLOOD UREA NITROGEN 11 mg/dl (7-17); CALCIUM 8.7 mg/dL (8.4-10.2); GFR AFRICAN-AMERICAN > 60; GFR NON-AFRICAN AMERICAN > 60
[2017-12-01] MEDS ORDERED: Potassium Chloride 20 mEq ER Tab PO ONE ×2 (07:08→08:13)
--- NOTE | 2017-12-01 07:45 | ED PDOC ---
- Laboratory Results Result Diagrams: 12/01/17 07:37 12/01/17 07:37 - ECG O2 Sat by Pulse Oximetry: 99 (RA) Pulse Ox Interpretation: Normal Medical Decision Making Medical Decision Making: Time: 0700 --Patient endorsed to provider by Dr. Brittnee Hernandes. Pending repeat Chem/ CBC lab results and crisis evaluation once she is awake. Time: 40 --Repeat labs reviewed: improvement in WBC, electrolyte and potassium levels. --Pending crisis evaluation. Scribe Attestation: Documented by Rica Iglesias, acting as a scribe for Kaia An MD. Provider Scribe Attestation: All medical record entries made by the Scribe were at my direction and personally dictated by me. I have reviewed the chart and agree that the record accurately reflects my personal performance of the history, physical exam, medical decision making, and the department course for this patient. I have also personally directed, reviewed, and agree with the discharge instructions and disposition. 11.45a - patient evaluated by crisis and agrees to admission to Dr. Khan Disposition Doctor Will See Patient In The: Hospital - Clinical Impression Clinical Impression: Psychosis, UTI (urinary tract infection), Hypokalemia - POA Present On Arrival: None - Disposition Disposition: Admitted as In-Patient Disposition Time: 11:01 Condition: STABLE Forms: [employer] (German)
[2017-12-01 07:56] LABS: BASO % 0.2 % (0.0-2.0); EOS % 0.1 % (0.0-4.0); HEMOGLOBIN 12.1 g/dL (12.0-16.0); LYMPH # 2.6 K/uL (1.0-4.3); LYMPH % 20.3 % (20.0-40.0); MEAN CELL VOLUME 97.1 fl (81.0-99.0); MEAN CORPUSCULAR HEMOGLOBIN 32.9 pg (27.0-31.0); MEAN CORPUSCULAR HGB CONC 33.9 g/dL (33.0-37.0); MEAN PLATELET VOLUME 7.9 fl (7.2-11.7); MONO # 1.1 K/uL (0.0-0.8); MONO % 8.5 % (0.0-10.0); NEUT # 8.9 K/uL (1.8-7.0); NEUT % 70.9 % (50.0-75.0); RBC 3.68 Mil/uL (3.80-5.20); WHITE BLOOD COUNT 12.6 K/uL (4.8-10.8)
[2017-12-01 07:59] LABS: BLOOD UREA NITROGEN 7 mg/dl (7-17); CALCIUM 8.3 mg/dL (8.4-10.2); GFR AFRICAN-AMERICAN > 60; GFR NON-AFRICAN AMERICAN > 60
[2017-12-01 16:24] VITALS: O2SAT 98
[2017-12-01] MEDS ORDERED: DiphenhydrAMINE 50 mg/ml Inj IM PRN (17:17)
[2017-12-01] MEDS ORDERED: Magnesium Hydroxide Susp 30 ml UD PO PRN (17:17)
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
--- NOTE | 2017-12-01 20:25 | CARD ---
APPROVED REPORT EKG Measurement Heart [id number] ID [id number] <Conclusion> Sinus tachycardia Otherwise normal ECG
[2017-12-01] MEDS: Fluticasone-Salmeterol 500-50mcg Diskus IH SCH (21:13)
[2017-12-02] MEDS: Fluticasone-Salmeterol 500-50mcg Diskus IH SCH ×2 (08:13→21:19)
[2017-12-02 09:56] LABS: T4 17.6 ug/dl (5.5-11.0)
[2017-12-02] MEDS ORDERED: Albuterol HFA 90 mcg/actuation (8 g) IH PRN (12:44)
[2017-12-02] MEDS ORDERED: Patient's Own Med (Methylprednisolone [Medrol Dose Pack (21 Tabs)] 4 MG) PO SCH (12:45)
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
[2017-12-02] MEDS ORDERED: Fluticasone-Salmeterol 500-50mcg Diskus IH SCH (21:00)
[2017-12-02] MEDS: methIMAzole 5 MG TAB PO SCH (21:13)
--- NOTE | 2017-12-03 01:24 | CON ---
DATE: ENDOCRINOLOGY CONSULTATION LOCATION: Psychiatry room number 321. HISTORY OF PRESENT ILLNESS: This is a 37-year-old female with major with significant history of generalized anxiety and major depression, presenting here with overt psychosis and has been admitted to the Psychiatry Unit for closer evaluation and management and is also being referred now for endocrine evaluation because of abnormal thyroid function studies. Past medical history as mentioned above, history of generalized anxiety and depression and has been having recurrent episodes of major depression and anxiety and panic attacks over the last few months prior to admission. History of chronic bronchial asthma with previous endotracheal intubation as noted. She was actually on a steroid pack just prior to this admission because of recent asthmaticus evaluated a week ago as noted. FAMILY HISTORY: No known thyroid endocrinopathy. Positive for hypertension and heart disease. SOCIAL HISTORY: The patient has supportive family. She admits to prior history of smoking. No other known substance use. REVIEW OF SYSTEMS: As mentioned above. Admits to generalized body weakness with episodic dizziness and lightheadedness, worse on the day of admission. Also admits to suboptimal energy level with easy fatigability and tiredness. Her oral intake has been variable with nausea, dyspepsia and habitual constipation with interspersed hyperdefecation as noted.. PHYSICAL EXAMINATION: GENERAL: She is an average built female in no apparent distress with a blood pressure of 140/80, pulse of 100 beats per minute and regular, temperature of 99, and respirations of 20. Height is 4 feet 11 inches and weight is 160 pounds. HEENT: Head is normocephalic. Eyes: Anicteric with pink conjunctivae. Funduscopy is not possible at this time. Ears, nose and throat otherwise normal. NECK: Supple. Thyroid gland is normal in size. No carotid bruits or any cervical adenopathy. CARDIOPULMONARY: Some adynamic precordium. S1 and S2 is rapid and regular. Lungs are clear to auscultation. GASTROINTESTINAL: Abdomen is flat and soft with positive bowel sounds. EXTREMITIES: No peripheral edema. Pulses are +2 bilaterally. LABORATORY DATA: Her hematology shows WBCs initially was 16.8, hemoglobin of 12, hematocrit of 37, MCV of 97, and platelets of 163. The chemistry shows a BUN of 7, sodium of 136, potassium of 3.5, chloride of 100, CO2 of 22, glucose of 78 and creatinine of 0.5. Her T4 is 17.6 mcg/dL with a TSH of 0.35. ASSESSMENT: This is a 37-year-old female with overt hyperthyroidism both historically, clinically and biochemically most likely related to underlying Graves disease and/or autoimmune thyroiditis. No overt palpable thyroid nodules or thyroid bruits are noted at this time. PLAN OF MANAGEMENT: As the patient has marked anxiety and constitutional symptoms of overt hyperthyroidism with tachycardia, we would empirically start her right away on Tapazole given as 5 mg p.o. b.i.d. to start today. We will titrate incremental as indicated to optimize metabolic control. We will also continue the beta blockade with Inderal given as 10 mg t.i.d. as ordered. We will obtain serial chemistries and supplement accordingly needed. We will also obtain a thyroid stimulating immunoglobulin and a thyroid peroxidase antibodies to confirm and/or indicate the presence of underlying thyroid autoimmunity. We will follow . Rica Song MD
[2017-12-03] MEDS: Fluticasone-Salmeterol 500-50mcg Diskus IH SCH ×2 (08:59→22:02)
[2017-12-03] MEDS: methIMAzole 5 MG TAB PO SCH (09:14)
[2017-12-03 09:55] LABS: BASO % 0.4 % (0.0-2.0); EOS # 0.2 K/uL (0.0-0.7); HEMOGLOBIN 13.9 g/dL (12.0-16.0); LYMPH # 2.7 K/uL (1.0-4.3); LYMPH % 26.5 % (20.0-40.0); MEAN CELL VOLUME 97.1 fl (81.0-99.0); MEAN CORPUSCULAR HEMOGLOBIN 32.9 pg (27.0-31.0); MEAN CORPUSCULAR HGB CONC 33.9 g/dL (33.0-37.0); MEAN PLATELET VOLUME 8.2 fl (7.2-11.7); MONO # 0.6 K/uL (0.0-0.8); MONO % 5.9 % (0.0-10.0); NEUT # 6.6 K/uL (1.8-7.0); NEUT % 65.2 % (50.0-75.0); NRBC % 0.1 % (0.0-0.0); RBC 4.23 Mil/uL (3.80-5.20); RED CELL DISTRIBUTION WIDTH 13.2 % (11.5-14.5); WHITE BLOOD COUNT 10.1 K/uL (4.8-10.8)
[2017-12-03 10:18] LABS: T4 16.1 ug/dl (5.5-11.0)
[2017-12-03 10:38] LABS: ALB/GLOB RATIO 1.1 (1.0-2.1); ALBUMIN 3.6 g/dL (3.5-5.0); ALT/SGPT 77 U/L (9-52); AST/SGOT 92 U/L (14-36); BLOOD UREA NITROGEN 11 mg/dl (7-17); CALCIUM 9.1 mg/dL (8.4-10.2); GFR AFRICAN-AMERICAN > 60; GFR NON-AFRICAN AMERICAN > 60
--- NOTE | 2017-12-03 16:38 | PCM.PYCHPN ---
Psychiatric Progress Note - Psychiatric Progress Note Patient seen today, length of contact: chart reviewed case discussed with team Patient Chief Complaint: little less anxious, continue to reinforced need for tapazole for hyperactive thyroid per endocrine , received prn lorazepam last night for anxious behavior repative flushing of toilet. denies side effects from zyprexa Problems Identified/Issues Discussed: alteration in mood alteration in coping Medical Problems: per chart per endocrine Diagnostic Results: per psychiatry per medicine per nursing per social work DSM 5 Symptoms Update: alteration in mood and cognition Medication Change: Yes (increase zyprexa to 10mg po hs) Medical Record Reviewed: Yes Consults ordered or reviewed: pt seen by hospitalist and endocrine Mental Status Examination - Cognitive Function Orientation: Person, Place, Situation Attention: WNL Concentration: WNL Association: WNL Fund of Knowledge: WN Decription of patient's judgement and insights: impaired - Mood Mood: Anxious - Affect Affect: Constricted, Depressed - Speech Speech: Soft - Formal Thought Process Formal Thought Process: Paranoia, Circumstantial - Homicidal Ideation Homicidal Ideation: No Goal/Treatment Plan - Goal/Treatment Plan Progress Toward Problem(s) and Goals/Treatment Plan: inpt milieu vital signs and clinical observation pt was started last night zyprexa 5mg po without notable side effects will increase to 10mg po hs as continues to be somewhat labile with ?paranoia pt reportedly refused tapazole today (hx of hyperthyroidism) -reinforce that per specialist hospitalist consult prns per unit protocol endocrine consult discharge planning in progress Estimated Date of D/C: 12/08/17 - Smoking Cessation Smoking Cessation Initiated: No Reason for not providing: defers
--- NOTE | 2017-12-03 19:33 | PN ---
ENDOCRINOLOGY FOLLOWUP NOTE DATE: LOCATION: In room 321, Psychiatry SUBJECTIVE: This is a 37-year-old female with major depressive disorder with underlying chronic schizoaffective and bipolar disorder, admitted to the Psychiatric Unit for closer evaluation and management and is also being followed closely for management of hyperthyroidism as noted thereof. She is tolerating the medical therapy as given fairly well and the latest thyroid study showed a T4 of 16.1 mcg/dL with a free T4 of 1.71 and a TSH of 0.29. Her chemistry showed a BUN of 11, sodium 146, potassium 3.9, chloride 102, CO2 of 30, glucose 74, and creatinine 0.5. So, at this time, we will modify once again her medical therapy with a higher dose titration of Tapazole given as 10 mg p.o. b.i.d. after meals to start today as ordered. We will continue the serial chemistries and serial thyroid studies and supplement accordingly as needed. We will follow. Rica Song MD
[2017-12-04] MEDS: Fluticasone-Salmeterol 500-50mcg Diskus IH SCH ×2 (09:08→21:34)
[2017-12-04] MEDS ORDERED: Risperidone M tab 1 MG PO STA (11:31)
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
[2017-12-04] MEDS: Risperidone M tab 1 MG PO SCH (18:05)
--- NOTE | 2017-12-04 19:47 | PN ---
ENDOCRINOLOGY FOLLOWUP NOTE DATE: LOCATION: In room 321 SUBJECTIVE: This is a 37-year-old female with major depressive disorder and currently being followed closely for metabolic management. She has overt hyperthyroidism both historically, clinically, and biochemically and the latest thyroid studies showed a T4 of 16.1 and a TSH of 0.29 and a free T4 of 1.71. So, at this time, we will continue the same medical therapy with Tapazole given as 10 mg p.o. b.i.d. after meals as ordered. We will titrate incremental as indicated to optimize metabolic control. We will follow. Rica Song MD
[2017-12-05] MEDS: Risperidone M tab 1 MG PO SCH (08:36)
[2017-12-05] MEDS: Fluticasone-Salmeterol 500-50mcg Diskus IH SCH ×2 (08:36→21:10)
[2017-12-05] MEDS: Alum-Mag Hydrox-Simethicone Susp (30 mL) PO PRN ×2 (10:55→21:10)
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
[2017-12-05 16:04] LABS: TSI <89 % baseline (<140)
[2017-12-05] MEDS: Risperidone M tab 0.5MG PO SCH (17:47)
[2017-12-06] MEDS: Albuterol HFA 90 mcg/actuation (8 g) INH PRN (02:52)
[2017-12-06 07:07] LABS: BASO # 0.1 K/uL (0.0-0.2); BASO % 0.6 % (0.0-2.0); EOS # 0.2 K/uL (0.0-0.7); HEMOGLOBIN 13.8 g/dL (12.0-16.0); LYMPH # 2.7 K/uL (1.0-4.3); LYMPH % 31.6 % (20.0-40.0); MEAN CELL VOLUME 98.5 fl (81.0-99.0); MEAN CORPUSCULAR HEMOGLOBIN 33.9 pg (27.0-31.0); MEAN CORPUSCULAR HGB CONC 34.4 g/dL (33.0-37.0); MEAN PLATELET VOLUME 8.4 fl (7.2-11.7); MONO # 0.6 K/uL (0.0-0.8); MONO % 7.2 % (0.0-10.0); NEUT % 58.6 % (50.0-75.0); NRBC % 0.1 % (0.0-0.0); RBC 4.07 Mil/uL (3.80-5.20); RED CELL DISTRIBUTION WIDTH 13.5 % (11.5-14.5); WHITE BLOOD COUNT 8.6 K/uL (4.8-10.8)
[2017-12-06 07:16] LABS: ALBUMIN 3.6 g/dL (3.5-5.0); ALT/SGPT 131 U/L (9-52); AST/SGOT 114 U/L (14-36); BLOOD UREA NITROGEN 11 mg/dl (7-17); CALCIUM 8.9 mg/dL (8.4-10.2); GFR AFRICAN-AMERICAN > 60; GFR NON-AFRICAN AMERICAN > 60
[2017-12-06 07:20] LABS: T4 13.3 ug/dl (5.5-11.0)
--- NOTE | 2017-12-06 08:29 | PN ---
DATE: ENDO FOLLOWUP NOTE LOCATION: Room 321. SUBJECTIVE: This is a 37-year-old female with recent admission for generalized anxiety and major depressive disorder with behavioral disturbances, currently being followed closely in the psychiatric unit and also being followed for recent from the metabolic view point. She is tolerating medications fairly well as given and noted. Her latest chemistry showed BUN of 11, sodium of 146, potassium of 3.9, chloride of 102, CO2 of 30, glucose of 74, and creatinine of 0.5. Her latest thyroid study showed T4 of 16.1 with the TSH of 0.29, and free T4 of 1.71. So at this time, we will continue the same medical therapy with Tapazole to be given as 10 mg after meals as ordered. We will obtain serial thyroid studies and titrate her dose regimen accordingly as indicated. We will follow and advice accordingly. Rica Song MD
[2017-12-06] MEDS: Fluticasone-Salmeterol 500-50mcg Diskus IH SCH ×2 (09:16→21:05)
[2017-12-06] MEDS: Risperidone M tab 0.5MG PO SCH (09:18)
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
[2017-12-06] MEDS: Alum-Mag Hydrox-Simethicone Susp (30 mL) PO PRN (20:43)
[2017-12-06] MEDS ORDERED: Risperidone M tab 0.5MG PO SCH (22:00)
[2017-12-06] MEDS ORDERED: Risperidone M tab 1 MG PO SCH (22:00)
[2017-12-07] MEDS: Fluticasone-Salmeterol 500-50mcg Diskus IH SCH ×2 (08:48→21:16)
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
--- NOTE | 2017-12-07 16:13 | PN ---
DATE: ENDO FOLLOWUP NOTE LOCATION: [place] in room 321, Psychiatry. SUBJECTIVE: This is a 37-year-old female with overt hyperthyroidism, currently on medical therapy and being followed closely at the psychiatric unit for major depressive disorder. Her latest thyroid studies showed T4 of 13.3 with the free T4 of 1.24 and TSH of 0.36. Her thyroid stimulating immunoglobulin is less than 89 as noted. So at this time, we will continue the same modified dosing of the Tapazole given as 10 mg p.o. b.i.d. after meals as ordered. We will obtain serial thyroid studies and adjust the dose regimen accordingly. We will follow. Rica Song MD
[2017-12-07] MEDS ORDERED: Risperidone M TAB 2 MG PO SCH (22:00)
[2017-12-08] MEDS: Fluticasone-Salmeterol 500-50mcg Diskus IH SCH ×2 (09:38→21:07)
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
[2017-12-08] MEDS: Risperidone M tab 1 MG PO SCH (21:06)
--- NOTE | 2017-12-09 01:33 | PN ---
ENDOCRINOLOGY FOLLOWUP NOTE DATE: LOCATION: In room 321. SUBJECTIVE: This is a 37-year-old female with major depressive disorder and now being followed closely also for metabolic management known history of hyperthyroidism as noted thereof. Her latest chemistry showed a BUN of 11, sodium 143, potassium of 4.7, chloride 103, CO2 of 28, glucose 104, and creatinine 0.5. Her latest thyroid study shows a T4 of 13.3 with a TSH of 0.36. So, at this time, we will continue the Tapazole given as 10 mg b.i.d. after meals as ordered. We will titrate incremental as indicated to optimize metabolic control. We will follow and advise accordingly. Rica Song MD
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
[2017-12-09] MEDS: Fluticasone-Salmeterol 500-50mcg Diskus IH SCH ×2 (10:03→21:17)
--- NOTE | 2017-12-09 11:14 | PN ---
DATE: ENDO FOLLOWUP NOTE LOCATION: room 321. SUBJECTIVE: This is a 37-year-old female with history of hyperthyroidism and currently being followed closely for metabolic management. She is also being managed for recent major depressive disorder as noted. Her latest thyroid studies showed T4 of 13.3 with the TSH of 0.36 and a free T4 of 1.24. So at this time, we will continue the Tapazole given as 10 mg p.o. b.i.d. after meals as ordered. We will obtain serial chemistries and supplement accordingly as needed. We will follow. Rica Song MD
[2017-12-09] MEDS: Albuterol HFA 90 mcg/actuation (8 g) INH PRN (14:13)
[2017-12-09] MEDS: Risperidone M tab 1 MG PO SCH (21:18)
[2017-12-10 09:12] LABS: ALBUMIN 3.4 g/dL (3.5-5.0); ALT/SGPT 158 U/L (9-52); AST/SGOT 128 U/L (14-36); BLOOD UREA NITROGEN 13 mg/dl (7-17); CALCIUM 8.3 mg/dL (8.4-10.2); GFR AFRICAN-AMERICAN > 60; GFR NON-AFRICAN AMERICAN > 60
[2017-12-10] MEDS: Fluticasone-Salmeterol 500-50mcg Diskus IH SCH ×2 (09:19→21:20)
[2017-12-10 09:26] LABS: T4 11.7 ug/dl (5.5-11.0)
--- NOTE | 2017-12-10 11:52 | PCM.PYCHPN ---
Psychiatric Progress Note - Psychiatric Progress Note Patient seen today, length of contact: Patient evaluated, chart reviewed Patient Chief Complaint: "I'm still seeing shadows." Problems Identified/Issues Discussed: Patient reports that she continues to see shadows, demons and blood on the wall. She continues to be paranoid and anxious. She denies depression/SI/HI. She denies current adverse effects to medications. We discussed continued titration of Risperdal. Medication Change: Yes (Increase Risperdal) Medical Record Reviewed: Yes Consults ordered or reviewed: Medicine consult, Endocrinology consult Mental Status Examination - Cognitive Function Orientation: Person, Place, Situation, Time Memory: Intact Attention: WNL Concentration: WNL Association: WNL Fund of Knowledge: [facility] Decription of patient's judgement and insights: Poor I/ Fair J - Mood Mood: Anxious - Affect Affect: Constricted - Speech Speech: Appropriate - Formal Thought Process Formal Thought Process: Hallucinations, Delusions, Paranoia, Circumstantial Psychotic Thoughts and Behaviors: +Paranoia, +VH, +Delusions - Suicidal Ideation Suicidal Ideation: No - Homicidal Ideation Homicidal Ideation: No Goal/Treatment Plan - Goal/Treatment Plan Need for Continued Stay: Remain at risks for inpatient hospitalization, Severe depression anxiety, Discharge may exacerbated symptoms Progress Toward Problem(s) and Goals/Treatment Plan: PTSD, Psychosis NOS r/o Schizoaffective Disorder -Individual and group therapy -Continue Cogentin 1 mg PO HS, Lexapro 10 mg PO Daily, Neurontin 300 mg PO TID, Prazosin 1 mg PO HS -Increase Risperdal to 1 mg PO AM/ 3 mg PO HS -Medicine consult -Psychoeducation -Disposition planning Estimated Date of D/C: 12/14/17
[2017-12-10] MEDS: Risperidone M tab 1 MG PO SCH (21:21)
--- NOTE | 2017-12-10 22:02 | PN ---
ENDOCRINOLOGY FOLLOWUP NOTE DATE: LOCATION: In room 321, Psychiatry SUBJECTIVE: This is a 37-year-old female with known history of hyperthyroidism and admitted here with major depressive disorder and undergoing psychiatric evaluation and management and has also been followed closely for metabolic management. Her latest thyroid studies showed a T4 of 16.1 initially and currently has improved down to 11.7 mcg/dL with a TSH of 0.30 that has also improved from admission. So, at this time, we will continue the same Tapazole given as 10 mg b.i.d. after meals as ordered. We will titrate incremental as indicated to optimize metabolic control. We will obtain serial chemistries and serial thyroid studies and titrate her dose regimen accordingly. Rica Song MD
[2017-12-11] MEDS: Fluticasone-Salmeterol 500-50mcg Diskus IH SCH ×2 (08:44→21:10)
--- NOTE | 2017-12-11 16:12 | PCM.PYCHPN ---
Psychiatric Progress Note - Psychiatric Progress Note Patient seen today, length of contact: Patient evaluated, chart reviewed Patient Chief Complaint: I feel better because another pt who was here was putting demons in my room Problems Identified/Issues Discussed: pt evaluated with treatment team, pt continues to be delusional, with delusions of persecution towards other patients repoting that they have been trying to spread their evil on her, pt continues to be religiously preoccupied and continues to report visual hallucinations of ghosts and blood mainly at night time DISCUSSED WITH PT GRADUAL INCREASE IN DOSE OF RISPERIDONE, ALSO POSSIBLE INCREASE IN NEURONTIN FOR ANXIETY pt denied any current suicidal or homicidal ideations, denied command hallucinations, denied any current side effects of medications DSM 5 Symptoms Update: bipolar disorder mixed with psychotic features PTSD Medication Change: No (Increase Risperdal) Medical Record Reviewed: Yes Mental Status Examination - Cognitive Function Orientation: Person, Place, Situation, Time Memory: Intact Attention: WNL Concentration: WNL Association: WNL Fund of Knowledge: Poor Decription of patient's judgement and insights: poor insight and judgment - Mood Mood: Anxious - Affect Affect: Constricted - Speech Speech: Appropriate - Formal Thought Process Formal Thought Process: Hallucinations, Delusions, Paranoia, Circumstantial - Suicidal Ideation Suicidal Ideation: No - Homicidal Ideation Homicidal Ideation: No Goal/Treatment Plan - Goal/Treatment Plan Need for Continued Stay: Remain at risks for inpatient hospitalization, Severe depression anxiety, Discharge may exacerbated symptoms Progress Toward Problem(s) and Goals/Treatment Plan: pt continues to be psychotic, will gradually increase risperidone lexapro 10mg daily prazocin 0.1mg qhs NEURONTIN 300MG TID cbt , group and supportive therapy Estimated Date of D/C: 12/14/17
[2017-12-11] MEDS: Risperidone M tab 1 MG PO SCH (21:12)
--- NOTE | 2017-12-11 21:34 | PN ---
ENDOCRINOLOGY FOLLOWUP NOTE DATE: LOCATION: In room 321, Psychiatry. SUBJECTIVE: This is a 37-year-old female with known history of hyperthyroidism, currently undergoing psychiatric evaluation and management for major depression and is now being followed closely for metabolic management. Her thyroid studies have improved and the latest T4 is 11.7 with a TSH of 0.3. Her latest chemistry showed a BUN of 13, sodium 138, potassium 3.8, chloride 98, CO2 of 30, glucose 98, and creatinine 0.5. So, we will continue the same medications of Tapazole given as 10 mg b.i.d. after meals as ordered. We will obtain serial chemistries and supplement accordingly as needed. Rica Song MD
[2017-12-12] MEDS: Fluticasone-Salmeterol 500-50mcg Diskus IH SCH ×2 (08:57→21:13)
--- NOTE | 2017-12-12 15:31 | PCM.PYCHPN ---
Psychiatric Progress Note - Psychiatric Progress Note Patient seen today, length of contact: Patient evaluated, chart reviewed Patient Chief Complaint: I slept 9 hours and I feel rested Problems Identified/Issues Discussed: pt evaluated , presenting with brighter affect, reported better mood relates that to improved sleep, pt also reported last night was first night in a while she did not experience night godfrey, pt indicating she feels her thought process more clear and presenting with more goal directed speech denied any current suicidal or homicidal ideations, denied perceptual disturbances, denied side effects of medications DSM 5 Symptoms Update: PTSD BIPOLAR DISORDER Medication Change: No Medical Record Reviewed: Yes Mental Status Examination - Cognitive Function Orientation: Person, Place, Situation, Time Memory: Intact Attention: WNL Concentration: WNL Association: WNL Fund of Knowledge: Poor Decription of patient's judgement and insights: poor insight and judgment - Mood Mood: Anxious - Affect Affect: Constricted - Speech Speech: Appropriate - Formal Thought Process Formal Thought Process: Circumstantial - Suicidal Ideation Suicidal Ideation: No - Homicidal Ideation Homicidal Ideation: No Goal/Treatment Plan - Goal/Treatment Plan Need for Continued Stay: Remain at risks for inpatient hospitalization, Severe depression anxiety, Discharge may exacerbated symptoms Progress Toward Problem(s) and Goals/Treatment Plan: RISPERIDONE 1MG DAILY AND 3MG QHS lexapro 10mg daily prazocin 0.1mg qhs NEURONTIN 300MG TID cbt , group and supportive therapy Estimated Date of D/C: 12/14/17
[2017-12-12] MEDS: Albuterol HFA 90 mcg/actuation (8 g) INH PRN (17:52)
--- NOTE | 2017-12-12 20:36 | PN ---
ENDOCRINOLOGY FOLLOWUP NOTE DATE: LOCATION: In room 321. SUBJECTIVE: This is a 37-year-old female admitted with major depressive disorder and is now being followed closely for metabolic management. Her latest thyroid study showed a T4 of 11.7 with a TSH of 0.3. Her latest chemistry showed a BUN of 13, sodium 138, potassium 3.8, chloride 98, CO2 of 30, glucose 98, and creatinine of 0.5. So, at this time, we will continue once again the same medical therapy with Tapazole given as 10 mg p.o. b.i.d. after meals for optimal management of hyperthyroidism. We will obtain serial chemistries and serial thyroid studies accordingly. Rica Song MD
[2017-12-12] MEDS: Risperidone M tab 1 MG PO SCH (21:13)
[2017-12-13 09:06] VITALS: RESP 18
[2017-12-13] MEDS: Fluticasone-Salmeterol 500-50mcg Diskus IH SCH ×2 (09:08→21:17)
--- NOTE | 2017-12-13 11:39 | PCM.PYCHPN ---
Psychiatric Progress Note - Psychiatric Progress Note Patient seen today, length of contact: Patient evaluated, chart reviewed Patient Chief Complaint: I had a good sleep and I did not have any hallucinations last night Problems Identified/Issues Discussed: pt evaluated ,reported improved sleep , pt stated last night she did not experience any visual hallucinations or night godfrey, thought process more goal directed and pt less religiously preoccupied with clearing off of the delusions reported better mood, brighter affect denied any current suicidal or homicidal ideations, denied perceptual disturbances, denied side effects of medications DSM 5 Symptoms Update: bipolar disorder mixed with psychotic features PTSD Medication Change: No Medical Record Reviewed: Yes Mental Status Examination - Cognitive Function Orientation: Person, Place, Situation, Time Memory: Intact Attention: WNL Concentration: WNL Association: WNL Fund of Knowledge: Poor Decription of patient's judgement and insights: poor insight and judgment - Mood Mood: Neutral - Affect Affect: Constricted - Speech Speech: Appropriate - Formal Thought Process Formal Thought Process: Circumstantial Psychotic Thoughts and Behaviors: PT LESS RELIGOUSLY PREOCCUPIED, CLEARING OFF OF THE DELUSIONS, DENIED ANY CURRENT PERCEPTUAL DISTURBANCES - Suicidal Ideation Suicidal Ideation: No - Homicidal Ideation Homicidal Ideation: No Goal/Treatment Plan - Goal/Treatment Plan Need for Continued Stay: Remain at risks for inpatient hospitalization, Severe depression anxiety, Discharge may exacerbated symptoms Progress Toward Problem(s) and Goals/Treatment Plan: RISPERIDONE 1MG DAILY AND 3MG QHS lexapro 10mg daily prazocin 0.1mg qhs NEURONTIN 300MG TID cbt , group and supportive therapy Estimated Date of D/C: 12/14/17
--- NOTE | 2017-12-13 20:14 | PN ---
ENDOCRINOLOGY FOLLOWUP NOTE DATE: LOCATION: In room 321. SUBJECTIVE: This is a 37-year-old female with major depressive disorder, now being followed closely for metabolic management. She has remained clinically and biochemically euthyroid at this time with improving thyroid function studies as ordered. The latest T4 is 11.7 with a TSH of 0.30. Her latest chemistry showed a BUN of 13, sodium 138, potassium 3.8, chloride 98, CO2 of 13, glucose 98, and creatinine 0.5. So, at this time, we will continue the same medical therapy with Tapazole given as 10 mg b.i.d. after meals as ordered. We will titrate incremental as indicated to optimize metabolic control. We will follow and advise accordingly. Rica Song MD
[2017-12-13] MEDS: Risperidone M tab 1 MG PO SCH (21:18)
[2017-12-14 08:59] VITALS: BP 108/74; PULSE 69
[2017-12-14] MEDS: Fluticasone-Salmeterol 500-50mcg Diskus IH SCH (08:59)
[2017-12-14 09:07] VITALS: TEMP 97.3
--- NOTE | 2017-12-14 23:43 | PN ---
ENDOCRINOLOGY FOLLOWUP NOTE DATE: LOCATION: In room 321 SUBJECTIVE: This is a 37-year-old female with known history of hyperthyroidism, currently improving both clinically and metabolically as noted thereof. Her latest thyroid study showed T4 of 11.7 with a TSH of 0.3. So, at this time, we will continue the Tapazole given as 10 mg b.i.d. after meals as ordered. We will titrate incremental as indicated to optimize metabolic control. We will follow. Rica Song MD
== END 2017-12-14 11:10 | disposition home or self-care (01) | DRG 430 ==
LOC: H.ER 22:43 → H.ERHOLD 12-01 11:03 → H.PSYCH 12-01 16:45
PROVIDERS: ADMIT Psychiatry & Neurology Psychiatry; ATTEND Psychiatry & Neurology Psychiatry
PROC: GZHZZZZ Group Psychotherapy (ICD-10-PCS; principal; 2017-12-01)
PROC: GZ58ZZZ Individual Psychotherapy, Cognitive-Behavioral (ICD-10-PCS; 2017-12-01)
DX: F31.64 Bipolar disorder, current episode mixed, severe, with psychotic features (principal); E87.6 Hypokalemia; N39.0 Urinary tract infection, site not specified; E05.90 Thyrotoxicosis, unspecified without thyrotoxic crisis or storm; F43.10 Post-traumatic stress disorder, unspecified; F41.0 Panic disorder [episodic paroxysmal anxiety]; G47.09 Other insomnia; D72.828 Other elevated white blood cell count; J45.909 Unspecified asthma, uncomplicated; Z91.410 Personal history of adult physical and sexual abuse; Z87.891 Personal history of nicotine dependence; Z88.6 Allergy status to analgesic agent

== ENCOUNTER 2017-12-20 09:58 | Emergency (ER) | payer MEDICAID ==
[2017-12-20 10:02] VITALS: BMI 35.1
[2017-12-20 10:03] VITALS: BP 109/71; PULSE 76; RESP 17; TEMP 97.5; O2SAT 99
--- NOTE | 2017-12-20 11:17 | ED PDOC ---
HPI: General Adult Time Seen by Provider: 12/20/17 11:14 Chief Complaint (Nursing): Med Refill Chief Complaint (Provider): med refill History Per: Patient (37 y/o female recently discharged 12/14 for psychiatric illness here for medication refill. States her next appt with mental health clinic is 01/16/2018. Denies any SI/HI. NOtes swelling under right axilla as well.) Past Medical History Reviewed: Historical Data, Nursing Documentation, Vital Signs Vital Signs: Last Vital Signs Temp 97.5 F L 12/20/17 10:02 Pulse 76 12/20/17 10:02 Resp 17 12/20/17 10:02 BP 109/71 12/20/17 10:02 Pulse Ox 99 12/20/17 10:02 - Medical History PMH: Anxiety, Arthritis, Asthma, Bronchitis, Depression, Emphysema, Fractures ( ankles, c5 neck), Migraine Denies: Alzheimer's Disease, Anemia, Atrial Fibrillation, Bipolar Disorder, CAD, Cardia Arrhythmia, CHF, COPD, Crohn's Disease, Dementia, Diverticulitis, Gastritis, Gall Bladder Disease, HIV, HTN, Hypercholesterolemia, Hyperthyroidism , Hypothyroidism, Kidney Stones, Mitral Valve Prolapse, Multiple Sclerosis, Osteoporosis, Pancreatitis, Paranoia, Parkinson's Disease, Peripheral Edema, Pneumonia, Post Traumatic Stress Disorder, Pulmonary Embolism, Chronic Kidney Disease, Rheumatoid Arthritis, Schizophrenia, Seizures, Sickle Cell Disease, Sexually Transmitted Disease, Sleep Apnea, TIA - Surgical History Surgical History: Denies: Appendectomy, CABG, Carotid Endarterectomy, Cholecystectomy, Coronary Stent, Pacemaker, Tonsillectomy - Family History Family History: States: Unknown Family Hx - Home Medications Home Medications: Ambulatory Orders Medication Instructions Recorded Albuterol HFA [Ventolin HFA 90 2 puff IH Q4 PRN #1 inhaler 11/24/17 mcg/actuation (8 g)] Albuterol/Ipratropium [Duoneb 3 3 ml INH RQ4 PRN #60 neb 11/24/17 mg/0.5 mg (3 ml) UD] Fluticasone/Salmeterol 500/50 1 puff IH Q12 #1 puff 11/24/17 [Advair Diskus 500/50] Methylprednisolone [Medrol Dose 4 mg PO DAILY #21 mg 11/24/17 Pack (21 tabs)] Albuterol HFA [Ventolin HFA 90 2 puff INH RQ4 PRN inhaler 12/14/17 mcg/actuation (8 g)] Benztropine [Cogentin] 1 mg PO HS 30 Days #30 tab 12/14/17 Escitalopram [Lexapro] 10 mg PO DAILY 30 Days #30 tab 12/14/17 Fluticasone/Salmeterol 500/50 1 puff IH Q12 puff 12/14/17 [Advair Diskus 500/50] Gabapentin [Neurontin] 300 mg PO TID 30 Days #90 cap 12/14/17 methIMAzole [Tapazole] 10 mg PO BID 7 Days #14 tab 12/14/17 risperiDONE [RisperDAL Tab] 1 mg PO DAILY 30 Days #30 tab 12/14/17 risperiDONE [RisperDAL Tab] 3 mg PO HS 30 Days #30 tab 12/14/17 Propranolol HCl 10 mg PO TID #54 tablet 12/20/17 Sulfamethoxazole/Trimethoprim 1 each PO BID #14 tablet 12/20/17 [Bactrim Ds Tablet] methIMAzole [Tapazole] 10 mg PO BID #28 tab 12/20/17 - Allergies Allergies/Adverse Reactions: Allergies Allergy/AdvReac Type Severity Reaction Status Date / Time aspirin Allergy SHORTNESS Verified 11/30/17 22:44 OF BREATH mold Allergy SHORTNESS Verified 11/30/17 22:44 OF BREATH tomato Allergy SHORTNESS Verified 12/06/17 05:26 OF BREATH trazodone Allergy RASH Verified 12/06/17 05:26 lettuce Allergy RASH Uncoded 12/06/17 06:31 Review of Systems ROS Statement: Except As Marked, All Systems Reviewed And Found Negative Physical Exam - Reviewed Nursing Documentation Reviewed: Yes Vital Signs Reviewed: Yes - Physical Exam Appears: Positive for: Well, Non-toxic, No Acute Distress Head Exam: Positive for: ATRAUMATIC, NORMAL INSPECTION, NORMOCEPHALIC Skin: Positive for: Normal Color, Warm, DRY Eye Exam: Positive for: EOMI, Normal appearance, PERRL ENT: Positive for: Normal ENT Inspection Neck: Positive for: Normal, Painless ROM Cardiovascular/Chest: Positive for: Regular Rate, Rhythm Respiratory: Positive for: CNT, Normal Breath Sounds Gastrointestinal/Abdominal: Positive for: Normal Exam, Soft Back: Positive for: Normal Inspection Extremity: Positive for: Normal ROM, Other (swelling noted 1.5 cm right axilla) Neurologic/Psych: Positive for: Alert, Oriented - ECG O2 Sat by Pulse Oximetry: 99 - Progress ED Course And Treament: d/w crisis. Earlier appt 01/09/2018 9 am given d/w [facility] resident. They will arrange earlier appt for medical evaluation. Disposition - Clinical Impression Clinical Impression: Medication refill, Abscess - Patient ED Disposition Is Patient to be Admitted: No - Disposition Referrals: [facility] [Outside] Disposition: Routine/Home Disposition Time: 11:18 Condition: FAIR Prescriptions: methIMAzole [Tapazole] 10 mg PO BID #28 tab Propranolol HCl 10 mg PO TID #54 tablet Sulfamethoxazole/Trimethoprim [Bactrim Ds Tablet] 1 each PO BID #14 tablet Instructions: Skin Abscess
== END 2017-12-20 12:19 | disposition home or self-care (01) ==
LOC: H.ER 09:58
DX: Z76.0 Encounter for issue of repeat prescription (principal)

== ENCOUNTER 2018-01-03 08:09 | Emergency (ER) | payer MEDICAID, OTHER ==
[2018-01-03 08:12] VITALS: BMI 35.1
[2018-01-03 08:39] VITALS: BP 102/72; PULSE 61; TEMP 97; O2SAT 97
[2018-01-03] MEDS ORDERED: Albuterol-Ipratrop 3 mg / 0.5 (3 ml) UD INH STA (09:10)
[2018-01-03] MEDS ORDERED: Albuterol-Ipratrop 3 mg / 0.5 (3 ml) UD IH STA (09:10)
[2018-01-03] MEDS ORDERED: Sodium Chloride 0.9% 1,000 ML IV STA (09:10)
--- NOTE | 2018-01-03 09:26 | ED PDOC ---
HPI: CCC, URI, Sore Throat Time Seen by Provider: 01/03/18 08:22 Chief Complaint (Nursing): Cough, Cold, Congestion Chief Complaint (Provider): Cough History Per: Patient History/Exam Limitations: no limitations Onset/Duration Of Symptoms: Days (x2) Current Symptoms Are (Timing): Still Present Additional Complaint(s): 37 y/o female with a pmhx of HTN, asthma, bronchitis, emphysema, depression, and migraines, who presents to the ED for evaluation of cough associated with wheezing, chest pain, and nasal congestion x2 days. Patient states cough is productive of green phlegm. She reports her chest pain feels similar to previous episodes of asthma exacerbation. She denies abdominal pain, vomiting, nausea, diarrhea, or headache. PMD: None provided Past Medical History Reviewed: Historical Data, Nursing Documentation, Vital Signs Vital Signs: Last Vital Signs Temp 97 F L 01/03/18 08:39 Pulse 61 01/03/18 08:39 Resp BP 102/72 01/03/18 08:39 Pulse Ox 97 01/03/18 09:33 - Medical History PMH: Anxiety, Arthritis, Asthma, Bronchitis, Depression, Emphysema, Fractures ( ankles, c5 neck), Migraine Denies: Alzheimer's Disease, Anemia, Atrial Fibrillation, Bipolar Disorder, CAD, Cardia Arrhythmia, CHF, COPD, Crohn's Disease, Dementia, Diverticulitis, Gastritis, Gall Bladder Disease, HIV, HTN, Hypercholesterolemia, Hyperthyroidism , Hypothyroidism, Kidney Stones, Mitral Valve Prolapse, Multiple Sclerosis, Osteoporosis, Pancreatitis, Paranoia, Parkinson's Disease, Peripheral Edema, Pneumonia, Post Traumatic Stress Disorder, Pulmonary Embolism, Chronic Kidney Disease, Rheumatoid Arthritis, Schizophrenia, Seizures, Sickle Cell Disease, Sexually Transmitted Disease, Sleep Apnea, TIA - Surgical History Surgical History: Denies: Appendectomy, CABG, Carotid Endarterectomy, Cholecystectomy, Coronary Stent, Pacemaker, Tonsillectomy - Family History Family History: States: Unknown Family Hx - Home Medications Home Medications: Ambulatory Orders Medication Instructions Recorded Albuterol HFA [Ventolin HFA 90 2 puff IH Q4 PRN #1 inhaler 11/24/17 mcg/actuation (8 g)] Albuterol/Ipratropium [Duoneb 3 3 ml INH RQ4 PRN #60 neb 11/24/17 mg/0.5 mg (3 ml) UD] Fluticasone/Salmeterol 500/50 1 puff IH Q12 #1 puff 11/24/17 [Advair Diskus 500/50] Methylprednisolone [Medrol Dose 4 mg PO DAILY #21 mg 11/24/17 Pack (21 tabs)] Albuterol HFA [Ventolin HFA 90 2 puff INH RQ4 PRN inhaler 12/14/17 mcg/actuation (8 g)] Benztropine [Cogentin] 1 mg PO HS 30 Days #30 tab 12/14/17 Escitalopram [Lexapro] 10 mg PO DAILY 30 Days #30 tab 12/14/17 Fluticasone/Salmeterol 500/50 1 puff IH Q12 puff 12/14/17 [Advair Diskus 500/50] Gabapentin [Neurontin] 300 mg PO TID 30 Days #90 cap 12/14/17 methIMAzole [Tapazole] 10 mg PO BID 7 Days #14 tab 12/14/17 risperiDONE [RisperDAL Tab] 1 mg PO DAILY 30 Days #30 tab 12/14/17 risperiDONE [RisperDAL Tab] 3 mg PO HS 30 Days #30 tab 12/14/17 Propranolol HCl 10 mg PO TID #54 tablet 12/20/17 Sulfamethoxazole/Trimethoprim 1 each PO BID #14 tablet 12/20/17 [Bactrim Ds Tablet] methIMAzole [Tapazole] 10 mg PO BID #28 tab 12/20/17 Albuterol Sulfate [Proair Hfa] 0.09 mg IH Q6H PRN #2 inh 01/03/18 predniSONE [predniSONE Tab] 20 mg PO BID 5 Days tab 01/03/18 - Allergies Allergies/Adverse Reactions: Allergies Allergy/AdvReac Type Severity Reaction Status Date / Time aspirin Allergy SHORTNESS Verified 01/03/18 08:23 OF BREATH mold Allergy SHORTNESS Verified 01/03/18 08:23 OF BREATH tomato Allergy SHORTNESS Verified 01/03/18 08:23 OF BREATH trazodone Allergy RASH Verified 01/03/18 08:23 lettuce Allergy RASH Uncoded 01/03/18 08:23 Review of Systems ROS Statement: Except As Marked, All Systems Reviewed And Found Negative ENT: Positive for: Nose Congestion Cardiovascular: Positive for: Chest Pain Respiratory: Positive for: Cough, Sputum, Wheezing Gastrointestinal: Negative for: Nausea, Vomiting, Abdominal Pain, Diarrhea Neurological: Negative for: Headache Physical Exam - Reviewed Nursing Documentation Reviewed: Yes Vital Signs Reviewed: Yes - Physical Exam Appears: Positive for: Non-toxic, No Acute Distress Head Exam: Positive for: ATRAUMATIC, NORMAL INSPECTION, NORMOCEPHALIC Skin: Positive for: Normal Color, Warm, Dry. Negative for: Rash Eye Exam: Positive for: EOMI, Normal appearance, PERRL ENT: Positive for: Nasal Congestion. Negative for: Pharyngeal Erythema, Tonsillar Exudate Neck: Positive for: Normal, Painless ROM, Supple Cardiovascular/Chest: Positive for: Regular Rate, Rhythm. Negative for: Murmur Respiratory: Positive for: Decreased Breath Sounds, Wheezing (mild expiratory wheezing at bilateral bases) Gastrointestinal/Abdominal: Positive for: Normal Exam, Soft. Negative for: Tenderness Back: Positive for: Normal Inspection. Negative for: L CVA Tenderness, R CVA Tenderness, Vertebral Tenderness Extremity: Positive for: Normal ROM. Negative for: Tenderness, Pedal Edema, Deformity Neurologic/Psych: Positive for: Alert, Oriented. Negative for: Motor/Sensory Deficits - Laboratory Results Result Diagrams: 01/03/18 09:47 01/03/18 09:47 Interpretation Of Abn Labs: mild elevated liver enzymes - ECG ECG: Positive for: Interpreted By Me, Viewed By Me ECG Rhythm: Positive for: Normal QRS, Normal ST Segment, Sinus Rhythm O2 Sat by Pulse Oximetry: 97 (RA) Pulse Ox Interpretation: Normal - Radiology X-Ray: Read By Radiologist X-Ray Interpretation: No Acute Disease - Progress ED Course And Treament: 1133: Stable. AAOx3. Pain free. Tolerated po. Medical Decision Making Medical Decision Makin:09 Initial Impression: URI Plan: --EKG --CMP --Troponin I --CBC --CXR --Duoneb 3ml INH x2 --Sodium Chloride 0.9% 1,000 mls/hr --SOLU-Medrol 125mg IVP --Reevaluation Scribe Attestation: Documented by German Myles, acting as a scribe for Jesus Conner MD. Provider Scribe Attestation: All medical record entries made by the Scribe were at my direction and personally dictated by me. I have reviewed the chart and agree that the record accurately reflects my personal performance of the history, physical exam, medical decision making, and the department course for this patient. I have also personally directed, reviewed, and agree with the discharge instructions and disposition. Disposition - Clinical Impression Clinical Impression: Asthma, URI (upper respiratory infection) - Patient ED Disposition Is Patient to be Admitted: No Counseled Patient/Family Regarding: Studies Performed, Diagnosis, Need For Followup, Rx Given - Disposition Referrals: [facility] [Outside] - 01/04/18 Disposition: Routine/Home Disposition Time: 11:35 Condition: STABLE Additional Instructions: Return if not better in 3 days. Prescriptions: Albuterol Sulfate [Proair Hfa] 0.09 mg IH Q6H PRN #2 inh PRN Reason: Wheezing predniSONE [predniSONE Tab] 20 mg PO BID 5 Days tab Instructions: Asthma in Adults, Viral Upper Respiratory Infection, Adult (DC) Forms: [facility] School/Work Excuse
[2018-01-03 09:54] LABS: BASO % 0.4 % (0.0-2.0); EOS % 0.6 % (0.0-4.0); HEMOGLOBIN 13.1 g/dL (12.0-16.0); LYMPH # 2.2 K/uL (1.0-4.3); LYMPH % 27.9 % (20.0-40.0); MEAN CELL VOLUME 98.9 fl (81.0-99.0); MEAN CORPUSCULAR HEMOGLOBIN 34.2 pg (27.0-31.0); MEAN CORPUSCULAR HGB CONC 34.6 g/dL (33.0-37.0); MEAN PLATELET VOLUME 8.8 fl (7.2-11.7); MONO # 0.7 K/uL (0.0-0.8); MONO % 8.7 % (0.0-10.0); NEUT # 4.9 K/uL (1.8-7.0); NEUT % 62.4 % (50.0-75.0); NRBC % 0.1 % (0.0-0.0); RBC 3.84 Mil/uL (3.80-5.20); RED CELL DISTRIBUTION WIDTH 14.4 % (11.5-14.5); WHITE BLOOD COUNT 7.8 K/uL (4.8-10.8)
[2018-01-03 10:10] LABS: ALBUMIN 3.5 g/dL (3.5-5.0); ALT/SGPT 248 U/L (9-52); AST/SGOT 311 U/L (14-36); BLOOD UREA NITROGEN 9 mg/dl (7-17); CALCIUM 8.3 mg/dL (8.4-10.2); GFR AFRICAN-AMERICAN > 60; GFR NON-AFRICAN AMERICAN > 60
--- NOTE | 2018-01-03 11:38 | RAD ---
HISTORY: Dyspnea. COMPARISON: The comparison made with chest radiograph 11/14/2017 FINDINGS: LUNGS: Suspect minor bibasilar atelectasis left greater than right PLEURA: No significant pleural effusion identified, no pneumothorax apparent. CARDIOVASCULAR: Normal. OSSEOUS STRUCTURES: No significant abnormalities. VISUALIZED UPPER ABDOMEN: Normal. OTHER FINDINGS: None. IMPRESSION: Suspect minor bibasilar atelectasis left greater than right.
--- NOTE | 2018-01-04 23:01 | CARD ---
APPROVED REPORT EKG Measurement Heart [id number] <Conclusion> Normal sinus rhythm Normal ECG
== END 2018-01-03 12:02 | disposition home or self-care (01) ==
LOC: H.ER 08:09
DX: J45.909 Unspecified asthma, uncomplicated (principal); J06.9 Acute upper respiratory infection, unspecified; J43.9 Emphysema, unspecified; F32.9 Major depressive disorder, single episode, unspecified; F41.9 Anxiety disorder, unspecified; I10 Essential (primary) hypertension
CPT/HCPCS: 71045; 80053; 81025; 84484; 85025; 93005; 94640; 96361; 96374; 99283; J2930; J7040

== ENCOUNTER 2018-04-12 16:15 | Emergency (ER) | payer MEDICAID ==
[2018-04-12 16:15] VITALS: BMI 35.1
--- NOTE | 2018-04-12 16:56 | ED PDOC ---
Upper Extremity Pain/Injury Time Seen by Provider: 04/12/18 16:40 Chief Complaint (Nursing): Upper Extremity Problem/Injury Chief Complaint (Provider): left arm pain History Per: Patient Additional Complaint(s): 38-year-old right-hand dominant female presents with pain to left arm for 3 weeks. Patient is not sure if she injured her arm a few weeks ago. She has history of chronic pain to left arm for several years status post accident in 2007. Patient just relocated to [place] from [place]. She denies any associated chest pain, shortness of breath or dyspnea on exertion. PMD: none Past Medical History Reviewed: Historical Data, Nursing Documentation, Vital Signs - Medical History PMH: Anxiety, Arthritis, Asthma, Bronchitis, Depression, Emphysema, HIV, Migraine - Surgical History Surgical History: Other surgeries: cyst removal from back - Family History Family History: States: No Known Family Hx - Living Arrangements Living Arrangements: With Family - Social History Current smoker - smoking cessation education provided: No Alcohol: None Drugs: Denies - Home Medications Home Medications: Ambulatory Orders Medication Instructions Recorded Albuterol HFA [Ventolin HFA 90 2 puff IH Q4 PRN #1 inhaler 11/24/17 mcg/actuation (8 g)] Albuterol/Ipratropium [Duoneb 3 3 ml INH RQ4 PRN #60 neb 11/24/17 mg/0.5 mg (3 ml) UD] Fluticasone/Salmeterol 500/50 1 puff IH Q12 #1 puff 11/24/17 [Advair Diskus 500/50] Methylprednisolone [Medrol Dose 4 mg PO DAILY #21 mg 11/24/17 Pack (21 tabs)] Albuterol HFA [Ventolin HFA 90 2 puff INH RQ4 PRN inhaler 12/14/17 mcg/actuation (8 g)] Benztropine [Cogentin] 1 mg PO HS 30 Days #30 tab 12/14/17 Escitalopram [Lexapro] 10 mg PO DAILY 30 Days #30 tab 12/14/17 Fluticasone/Salmeterol 500/50 1 puff IH Q12 puff 12/14/17 [Advair Diskus 500/50] Gabapentin [Neurontin] 300 mg PO TID 30 Days #90 cap 12/14/17 methIMAzole [Tapazole] 10 mg PO BID 7 Days #14 tab 12/14/17 risperiDONE [RisperDAL Tab] 1 mg PO DAILY 30 Days #30 tab 12/14/17 risperiDONE [RisperDAL Tab] 3 mg PO HS 30 Days #30 tab 12/14/17 Propranolol HCl 10 mg PO TID #54 tablet 12/20/17 Sulfamethoxazole/Trimethoprim 1 each PO BID #14 tablet 12/20/17 [Bactrim Ds Tablet] methIMAzole [Tapazole] 10 mg PO BID #28 tab 12/20/17 Albuterol Sulfate [Proair Hfa] 0.09 mg IH Q6H PRN #2 inh 01/03/18 Gabapentin [Neurontin] 300 mg PO TID 5 Days cap 01/03/18 methIMAzole [Tapazole] 10 mg PO BID 5 Days tab 01/03/18 predniSONE [predniSONE Tab] 20 mg PO BID 5 Days tab 01/03/18 Nabumetone [Relafen] 500 mg PO BID #20 tab 04/12/18 - Allergies Allergies/Adverse Reactions: Allergies Allergy/AdvReac Type Severity Reaction Status Date / Time aspirin Allergy SHORTNESS Verified 01/03/18 08:23 OF BREATH mold Allergy SHORTNESS Verified 01/03/18 08:23 OF BREATH tomato Allergy SHORTNESS Verified 01/03/18 08:23 OF BREATH trazodone Allergy RASH Verified 01/03/18 08:23 lettuce Allergy RASH Uncoded 01/03/18 08:23 Review of Systems ROS Statement: Except As Marked, All Systems Reviewed And Found Negative Cardiovascular: Negative for: Chest Pain Musculoskeletal: Positive for: Other (left arm pain) Physical Exam - Reviewed Nursing Documentation Reviewed: Yes Vital Signs Reviewed: Yes - Physical Exam Appears: Positive for: Well, Non-toxic, No Acute Distress Skin: Positive for: Normal Color. Negative for: Rash Eye Exam: Positive for: Normal appearance Cardiovascular/Chest: Positive for: Regular Rate, Rhythm Respiratory: Positive for: Normal Breath Sounds Extremity: Positive for: Other (tenderness to left wrist, forearm and shoulder region, decreased range of motion, no obvious bony deformities.) Neurologic/Psych: Positive for: Alert, Oriented - Laboratory Results Urine POC: Negative - ECG O2 Sat by Pulse Oximetry: 99 Pulse Ox Interpretation: Normal - Other Rad Right shoulder, forearm and wrist X-Ray: Interpreted by Me, Viewed By Me X-Ray Interpretation: no fx, no dis Medical Decision Making Medical Decision Makin38 year old with left arm pain Plan: test X-ray left wrist, forearm and shoulder IM toradol Patient feels better after injection was given. Prescription for Relafen provided. Patient was referred to pain management and orthopedic on-call for follow-up Procedures - Splinting Location: left arm Pre-Made Type: sling Pre-Proc Neuro Vasc Exam: normal Post-Proc Neuro Vasc Exam: normal Disposition - Clinical Impression Clinical Impression: Chronic arm pain - Patient ED Disposition Is Patient to be Admitted: No Counseled Patient/Family Regarding: Studies Performed, Diagnosis, Need For Followup, Rx Given - Disposition Referrals: Farzad Nolasco MD [Medical Doctor] - Brennan Medina MD [Staff Provider] - Disposition: Routine/Home Disposition Time: 17:49 Condition: STABLE Additional Instructions: Take rx meds as directed. Follow up with pain management. Prescriptions: Nabumetone [Relafen] 500 mg PO BID #20 tab Instructions: Muscle and Bone Pain (DC), Chronic Pain Forms: [facility] ([place])
[2018-04-12 17:31] VITALS: BP 128/98; PULSE 80; RESP 14; TEMP 98.3; O2SAT 99
--- NOTE | 2018-04-12 17:38 | RAD ---
Date of service: 04/12/2018 PROCEDURE: Radiographs of the Left Forearm HISTORY: Twisting injury presenting with pain COMPARISON: None available. TECHNIQUE: Frontal and lateral views obtained. FINDINGS: BONES: No fracture or destructive lesion. JOINT SPACES: Unremarkable. OTHER FINDINGS: None. IMPRESSION: Unremarkable radiographs of the left forearm. Concordant results with the preliminary interpretation rendered by the emergency department physician procedure.
--- NOTE | 2018-04-12 17:39 | RAD ---
Date of service: 04/12/2018 PROCEDURE: Radiographs of the Left Shoulder HISTORY: Twisting injury presenting with pain COMPARISON: No prior. FINDINGS: BONES: Normal. No fracture. JOINTS: Normal. Glenohumeral and acromioclavicular joints preserved. No osteoarthritis. SOFT TISSUES: Normal. OTHER FINDINGS: None. IMPRESSION: No significant or acute findings to account for/ related to the clinical presentation. Concordant results with the preliminary interpretation rendered by the emergency department physician procedure.
--- NOTE | 2018-04-12 17:39 | RAD ---
Date of service: 04/12/2018 PROCEDURE: Left Wrist Radiographs. HISTORY: pain COMPARISON: None. FINDINGS: BONES: Normal. No fracture. JOINTS: Normal. No dislocation. SOFT TISSUES: Normal. OTHER FINDINGS: None. IMPRESSION: Normal left wrist radiographs. Concordant results with the preliminary interpretation rendered by the emergency department physician procedure.
== END 2018-04-12 18:00 | disposition home or self-care (01) ==
LOC: H.ER 16:15
DX: M79.602 Pain in left arm (principal); J43.9 Emphysema, unspecified; F41.9 Anxiety disorder, unspecified; F32.9 Major depressive disorder, single episode, unspecified
CPT/HCPCS: 73030; 73090; 73110; 81025; 96372; 99283; J1885

== ENCOUNTER 2018-04-20 14:30 | Emergency (ER) | payer MEDICAID ==
[2018-04-20 15:00] VITALS: BP 112/73; PULSE 67; RESP 16; TEMP 98.5; O2SAT 99
--- NOTE | 2018-04-20 15:49 | ED PDOC ---
Upper Extremity Pain/Injury Time Seen by Provider: 04/20/18 14:55 Chief Complaint (Nursing): Upper Extremity Problem/Injury Chief Complaint (Provider): Left arm pain, chronic History Per: Patient History/Exam Limitations: no limitations Onset/Duration Of Symptoms: Other (chronic) Current Symptoms Are (Timing): Still Present Additional Complaint(s): 38-year-old female presenting for evaluation of chronic left arm pain. Patient was seen 10 days ago for same. She states the NSAID she was given at the time helped her pain, but she ran out of the prescription. She denies any new falls or trauma. She reports the pain is now radiating from the left arm and shoulder to her neck and back. Patient reports she will see her pain management doctor on Monday. Of Note: Patient asked for refill of psychiatric medications. Past Medical History Reviewed: Historical Data, Nursing Documentation, Vital Signs Vital Signs: Last Vital Signs Temp 98.5 F 04/20/18 14:58 Pulse 67 04/20/18 14:58 Resp 16 04/20/18 14:58 BP 112/73 04/20/18 14:58 Pulse Ox 99 04/20/18 14:58 - Medical History PMH: Anxiety, Arthritis, Asthma, Bronchitis, Depression, Emphysema, Fractures ( ankles, c5 neck), HIV, Migraine Denies: Alzheimer's Disease, Anemia, Atrial Fibrillation, Bipolar Disorder, CAD, Cardia Arrhythmia, CHF, COPD, Crohn's Disease, Dementia, Diverticulitis, Gastritis, Gall Bladder Disease, HTN, Hypercholesterolemia, Hyperthyroidism, Hypothyroidism, Kidney Stones, Mitral Valve Prolapse, Multiple Sclerosis, Osteoporosis, Pancreatitis, Paranoia, Parkinson's Disease, Peripheral Edema, Pneumonia, Post Traumatic Stress Disorder, Pulmonary Embolism, Chronic Kidney Disease, Rheumatoid Arthritis, Schizophrenia, Seizures, Sickle Cell Disease, Sexually Transmitted Disease, Sleep Apnea, TIA - Surgical History Surgical History: Denies: Appendectomy, CABG, Carotid Endarterectomy, Cholecystectomy, Coronary Stent, Pacemaker, Tonsillectomy - Family History Family History: States: Unknown Family Hx - Home Medications Home Medications: Ambulatory Orders Medication Instructions Recorded Albuterol HFA [Ventolin HFA 90 2 puff IH Q4 PRN #1 inhaler 11/24/17 mcg/actuation (8 g)] Albuterol/Ipratropium [Duoneb 3 3 ml INH RQ4 PRN #60 neb 11/24/17 mg/0.5 mg (3 ml) UD] Fluticasone/Salmeterol 500/50 1 puff IH Q12 #1 puff 11/24/17 [Advair Diskus 500/50] Methylprednisolone [Medrol Dose 4 mg PO DAILY #21 mg 11/24/17 Pack (21 tabs)] Albuterol HFA [Ventolin HFA 90 2 puff INH RQ4 PRN inhaler 12/14/17 mcg/actuation (8 g)] Benztropine [Cogentin] 1 mg PO HS 30 Days #30 tab 12/14/17 Escitalopram [Lexapro] 10 mg PO DAILY 30 Days #30 tab 12/14/17 Fluticasone/Salmeterol 500/50 1 puff IH Q12 puff 12/14/17 [Advair Diskus 500/50] Gabapentin [Neurontin] 300 mg PO TID 30 Days #90 cap 12/14/17 methIMAzole [Tapazole] 10 mg PO BID 7 Days #14 tab 12/14/17 risperiDONE [RisperDAL Tab] 1 mg PO DAILY 30 Days #30 tab 12/14/17 risperiDONE [RisperDAL Tab] 3 mg PO HS 30 Days #30 tab 12/14/17 Propranolol HCl 10 mg PO TID #54 tablet 12/20/17 Sulfamethoxazole/Trimethoprim 1 each PO BID #14 tablet 12/20/17 [Bactrim Ds Tablet] methIMAzole [Tapazole] 10 mg PO BID #28 tab 12/20/17 Albuterol Sulfate [Proair Hfa] 0.09 mg IH Q6H PRN #2 inh 01/03/18 Gabapentin [Neurontin] 300 mg PO TID 5 Days cap 01/03/18 methIMAzole [Tapazole] 10 mg PO BID 5 Days tab 01/03/18 predniSONE [predniSONE Tab] 20 mg PO BID 5 Days tab 01/03/18 Nabumetone [Relafen] 500 mg PO BID #20 tab 04/12/18 Cyclobenzaprine [Cyclobenzaprine 10 mg PO Q8H PRN #12 tab 04/20/18 HCl] Nabumetone [Relafen] 500 mg PO BID #20 tab 04/20/18 - Allergies Allergies/Adverse Reactions: Allergies Allergy/AdvReac Type Severity Reaction Status Date / Time aspirin Allergy SHORTNESS Verified 01/03/18 08:23 OF BREATH mold Allergy SHORTNESS Verified 01/03/18 08:23 OF BREATH tomato Allergy SHORTNESS Verified 01/03/18 08:23 OF BREATH trazodone Allergy RASH Verified 01/03/18 08:23 lettuce Allergy RASH Uncoded 01/03/18 08:23 Review of Systems ROS Statement: Except As Marked, All Systems Reviewed And Found Negative Musculoskeletal: Positive for: Neck Pain, Shoulder Pain (left), Arm Pain (left) , Back Pain Physical Exam - Reviewed Nursing Documentation Reviewed: Yes (c,m) Vital Signs Reviewed: Yes - Physical Exam Appears: Positive for: Non-toxic, No Acute Distress Head Exam: Positive for: ATRAUMATIC Skin: Positive for: Normal Color, Warm Eye Exam: Positive for: Normal appearance Neck: Positive for: Normal Respiratory: Negative for: Respiratory Distress Pulses-Radial (L): 2+ Pulses-Radial (R): 2+ Extremity: Positive for: Normal ROM (left shoulder). Negative for: Tenderness ( bony), Deformity Neurologic/Psych: Positive for: Alert - ECG O2 Sat by Pulse Oximetry: 99 (RA) Pulse Ox Interpretation: Normal Medical Decision Making Medical Decision Making: Plan: Patient discharged with prescriptions for Cyclobenzaprine and Relafen. Patient given information for [facility]. Scribe Attestation: Documented by German Myles, acting as a scribe for Jyoti Agrawal PA-C. Provider Scribe Attestation: All medical record entries made by the scribe were at my direction and personally dictated by me. I have reviewed the chart and agree that the record accurately reflects my personal performance of the history, physical exam, medical decision making, and the department course for this patient. I have also personally directed, reviewed, and agree with the discharge instructions and disposition. Disposition - Clinical Impression Clinical Impression: Chronic arm pain - Patient ED Disposition Is Patient to be Admitted: No Counseled Patient/Family Regarding: Diagnosis, Need For Followup, Rx Given - Disposition Referrals: [facility] [Outside] Disposition: Routine/Home Disposition Time: 15:46 Condition: GOOD Prescriptions: Cyclobenzaprine [Cyclobenzaprine HCl] 10 mg PO Q8H PRN #12 tab PRN Reason: Muscle Spasm Nabumetone [Relafen] 500 mg PO BID #20 tab Instructions: Chronic Pain (DC) Forms: [employer] (Bulgarian)
== END 2018-04-20 15:55 | disposition home or self-care (01) ==
LOC: H.ER 14:30
DX: M79.602 Pain in left arm (principal)

== ENCOUNTER 2018-05-01 10:47 | Emergency (ER) | payer MEDICAID ==
[2018-05-01 11:04] VITALS: BMI 34.2
[2018-05-01 11:06] VITALS: BP 114/67; PULSE 103; RESP 20; TEMP 98.5; O2SAT 98
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
== END 2018-05-01 13:34 | disposition home or self-care (01) ==
LOC: H.ER 10:47
DX: M54.12 Radiculopathy, cervical region (principal)

== ENCOUNTER 2018-05-10 13:34 | Emergency (ER) | payer MEDICAID ==
[2018-05-10 13:35] VITALS: BMI 34.2
[2018-05-10 14:33] VITALS: BP 112/84; PULSE 89; RESP 18; TEMP 98.2; O2SAT 98
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
== END 2018-05-10 16:51 | disposition home or self-care (01) ==
LOC: H.ER 13:34
DX: M54.12 Radiculopathy, cervical region (principal)

== ENCOUNTER 2018-05-21 15:48 | Emergency (ER) | payer MEDICAID ==
[2018-05-21 16:01] VITALS: BP 115/82; PULSE 92; RESP 16; TEMP 98.5; O2SAT 97; BMI 32.2
--- NOTE | 2018-05-21 16:25 | ED PDOC ---
Upper Extremity Pain/Injury Time Seen by Provider: 05/21/18 16:27 Chief Complaint (Nursing): Upper Extremity Problem/Injury Chief Complaint (Provider): Left elbow pain History Per: Patient History/Exam Limitations: no limitations Onset/Duration Of Symptoms: Persistent Additional Complaint(s): 38yo female, history of chronic pain, comes to ER stating she has persistent left elbow pain. Patient does follow up at the clinic and is currently on gabapentin. Patient states the clinic would not prescribe flexeril and that she was informed to come to the ER for evaluation. She denies any new trauma, weakness or numbness. No other complaints. PMD: Dr. Thomason Past Medical History Reviewed: Historical Data, Nursing Documentation, Vital Signs Vital Signs: Last Vital Signs Temp 98.5 F 05/21/18 16:00 Pulse 92 H 05/21/18 16:00 Resp 16 05/21/18 16:00 BP 115/82 05/21/18 16:00 Pulse Ox 97 05/21/18 16:00 - Medical History PMH: Anxiety, Arthritis, Asthma, Bronchitis, Depression, Emphysema, Fractures ( ankles, c5 neck), HIV, Migraine, Schizophrenia Denies: Alzheimer's Disease, Anemia, Atrial Fibrillation, Bipolar Disorder, CAD, Cardia Arrhythmia, CHF, COPD, Crohn's Disease, Dementia, Diverticulitis, Gastritis, Gall Bladder Disease, HTN, Hypercholesterolemia, Hyperthyroidism, Hypothyroidism, Kidney Stones, Mitral Valve Prolapse, Multiple Sclerosis, Osteoporosis, Pancreatitis, Paranoia, Parkinson's Disease, Peripheral Edema, Pneumonia, Post Traumatic Stress Disorder, Pulmonary Embolism, Chronic Kidney Disease, Rheumatoid Arthritis, Seizures, Sickle Cell Disease, Sexually Transmitted Disease, Sleep Apnea, TIA - Surgical History Surgical History: Back Surgery, Denies: Appendectomy, CABG, Carotid Endarterectomy, Cholecystectomy, Coronary Stent, Pacemaker, Tonsillectomy - Family History Family History: States: Unknown Family Hx - Home Medications Home Medications: Ambulatory Orders Medication Instructions Recorded Albuterol HFA [Ventolin HFA 90 2 puff IH Q4 PRN #1 inhaler 11/24/17 mcg/actuation (8 g)] Albuterol/Ipratropium [Duoneb 3 3 ml INH RQ4 PRN #60 neb 11/24/17 mg/0.5 mg (3 ml) UD] Fluticasone/Salmeterol 500/50 1 puff IH Q12 #1 puff 11/24/17 [Advair Diskus 500/50] Methylprednisolone [Medrol Dose 4 mg PO DAILY #21 mg 11/24/17 Pack (21 tabs)] Albuterol HFA [Ventolin HFA 90 2 puff INH RQ4 PRN inhaler 12/14/17 mcg/actuation (8 g)] Benztropine [Cogentin] 1 mg PO HS 30 Days #30 tab 12/14/17 Escitalopram [Lexapro] 10 mg PO DAILY 30 Days #30 tab 12/14/17 Fluticasone/Salmeterol 500/50 1 puff IH Q12 puff 12/14/17 [Advair Diskus 500/50] Gabapentin [Neurontin] 300 mg PO TID 30 Days #90 cap 12/14/17 methIMAzole [Tapazole] 10 mg PO BID 7 Days #14 tab 12/14/17 risperiDONE [RisperDAL Tab] 1 mg PO DAILY 30 Days #30 tab 12/14/17 risperiDONE [RisperDAL Tab] 3 mg PO HS 30 Days #30 tab 12/14/17 Propranolol HCl 10 mg PO TID #54 tablet 12/20/17 Sulfamethoxazole/Trimethoprim 1 each PO BID #14 tablet 12/20/17 [Bactrim Ds Tablet] methIMAzole [Tapazole] 10 mg PO BID #28 tab 12/20/17 Albuterol Sulfate [Proair Hfa] 0.09 mg IH Q6H PRN #2 inh 01/03/18 Gabapentin [Neurontin] 300 mg PO TID 5 Days cap 01/03/18 methIMAzole [Tapazole] 10 mg PO BID 5 Days tab 01/03/18 predniSONE [predniSONE Tab] 20 mg PO BID 5 Days tab 01/03/18 Nabumetone [Relafen] 500 mg PO BID #20 tab 04/12/18 Cyclobenzaprine [Cyclobenzaprine 10 mg PO Q8H PRN #12 tab 04/20/18 HCl] Nabumetone [Relafen] 500 mg PO BID #20 tab 04/20/18 Acetaminophen [Acetaminophen 8 650 mg PO Q8 PRN #21 tablet.er 05/01/18 Hour] Cyclobenzaprine [Cyclobenzaprine 10 mg PO Q8 PRN #12 tab 05/01/18 HCl] Acetaminophen [Acetaminophen 8 650 mg PO Q8 PRN #21 tablet.er 05/10/18 Hour] Cyclobenzaprine [Cyclobenzaprine 10 mg PO TID PRN #12 tab 05/10/18 HCl] Nabumetone [Relafen] 500 mg PO BID #10 tab 05/21/18 - Allergies Allergies/Adverse Reactions: Allergies Allergy/AdvReac Type Severity Reaction Status Date / Time aspirin Allergy SHORTNESS Verified 05/10/18 14:29 OF BREATH mold Allergy SHORTNESS Verified 05/10/18 14:29 OF BREATH tomato Allergy SHORTNESS Verified 05/10/18 14:29 OF BREATH trazodone Allergy RASH Verified 05/10/18 14:29 lettuce Allergy RASH Uncoded 05/10/18 14:29 Review of Systems ROS Statement: Except As Marked, All Systems Reviewed And Found Negative Musculoskeletal: Positive for: Arm Pain (left elbow pain) Neurological: Negative for: Weakness, Numbness Physical Exam - Reviewed Nursing Documentation Reviewed: Yes Vital Signs Reviewed: Yes - Physical Exam Appears: Positive for: Non-toxic, No Acute Distress Head Exam: Positive for: ATRAUMATIC, NORMAL INSPECTION, NORMOCEPHALIC Skin: Positive for: Normal Color Eye Exam: Positive for: Normal appearance Extremity: Positive for: Normal ROM. Negative for: Deformity Neurologic/Psych: Positive for: Alert, Oriented. Negative for: Motor/Sensory Deficits - ECG O2 Sat by Pulse Oximetry: 97 (RA) Pulse Ox Interpretation: Normal Medical Decision Making Medical Decision Making: Impression: Chronic pain Plan: -- Discussed with patient that emergency room visits are not the right course of treatment for chronic pain. Patient additionally informed she can take OTC NSAIDs like Motrin or Tylenol for pain. Instructed to follow up with the clinic for further evaluation. Scribe Attestation: Documented by Anahi Cheung acting as a scribe for SKYLER Rocha. Provider Attestation: All medical record entries made by the Scribe were at my direction and personally dictated by me. I have reviewed the chart and agree that the record accurately reflects my personal performance of the history, physical exam, medical decision making, and the department course for this patient. I have also personally directed, reviewed, and agree with the discharge instructions and disposition. Disposition - Clinical Impression Clinical Impression: Chronic arm pain - Patient ED Disposition Is Patient to be Admitted: No Counseled Patient/Family Regarding: Diagnosis, Need For Followup, Rx Given - Disposition Referrals: [facility] [Outside] Disposition: Routine/Home Disposition Time: 16:23 Condition: STABLE Prescriptions: Nabumetone [Relafen] 500 mg PO BID #10 tab Instructions: Chronic Pain Forms: [employer] (Tunisian)
== END 2018-05-21 16:28 | disposition home or self-care (01) ==
LOC: H.ER 15:48
DX: M25.522 Pain in left elbow (principal); G89.29 Other chronic pain; Z86.59 Personal history of other mental and behavioral disorders; J43.9 Emphysema, unspecified; J45.909 Unspecified asthma, uncomplicated

== ENCOUNTER 2018-07-17 14:46 | Emergency (ER) | payer MEDICAID ==
[2018-07-17 14:46] VITALS: BMI 32.2
[2018-07-17 15:00] VITALS: BP 120/78; PULSE 81; RESP 22; TEMP 97.6; O2SAT 96
[2018-07-17] MEDS ORDERED: Albuterol-Ipratrop 3 mg / 0.5 (3 ml) UD INH STA ×2 (16:09→16:10)
[2018-07-17 16:21] LABS: BASO % 0.4 % (0.0-2.0); EOS # 0.1 K/uL (0.0-0.7); EOS % 1.4 % (0.0-4.0); HEMOGLOBIN 14.6 g/dL (12.0-16.0); LYMPH # 2.4 K/uL (1.0-4.3); MEAN CELL VOLUME 97.9 fl (81.0-99.0); MEAN CORPUSCULAR HEMOGLOBIN 32.9 pg (27.0-31.0); MEAN CORPUSCULAR HGB CONC 33.6 g/dL (33.0-37.0); MEAN PLATELET VOLUME 8.8 fl (7.2-11.7); MONO # 0.5 K/uL (0.0-0.8); MONO % 5.2 % (0.0-10.0); RBC 4.43 Mil/uL (3.80-5.20); WHITE BLOOD COUNT 10.2 K/uL (4.8-10.8)
[2018-07-17] MEDS ORDERED: Albuterol-Ipratrop 3 mg / 0.5 (3 ml) UD ONE (16:22)
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
[2018-07-17 16:33] LABS: BLOOD UREA NITROGEN 14 mg/dl (7-17); CALCIUM 8.7 mg/dL (8.4-10.2); GFR NON-AFRICAN AMERICAN > 60
--- NOTE | 2018-07-18 12:24 | CARD ---
APPROVED REPORT Date of service: 07/17/2018 EKG Measurement Heart [id number] <Conclusion> Normal sinus rhythm Normal ECG
== END 2018-07-17 18:37 | disposition short-term general hospital (02) ==
LOC: H.ER 14:46
DX: J45.902 Unspecified asthma with status asthmaticus (principal); F17.200 Nicotine dependence, unspecified, uncomplicated; J43.9 Emphysema, unspecified; Z79.899 Other long term (current) drug therapy; F20.9 Schizophrenia, unspecified; F32.9 Major depressive disorder, single episode, unspecified; F41.9 Anxiety disorder, unspecified

== ENCOUNTER 2018-09-18 14:52 | Emergency (ER) | payer MEDICAID ==
[2018-09-18 14:53] VITALS: BMI 32.2
[2018-09-18 14:57] VITALS: BP 135/89; RESP 20; TEMP 97.7
[2018-09-18] MEDS ORDERED: Albuterol-Ipratrop 3 mg / 0.5 (3 ml) UD ONE (15:06)
[2018-09-18] MEDS ORDERED: Albuterol-Ipratrop 3 mg / 0.5 (3 ml) UD INH STA (15:07)
--- NOTE | 2018-09-18 15:20 | ED PDOC ---
HPI: Influenza Time Seen by Provider: 09/18/18 15:00 Chief Complaint: Cough, Cold, Congestion Chief Complaint (Provider): Cough, Cold, Congestion History Per: Patient Exam Limitations: no limitations Onset/Duration Of Symptoms: Days (x1) Additional complaint(s):: Patient is a 38 y/o female with a PMHx of depression, anxiety, arthritis, asthma, emphysema, fractures, bronchitis, HIV, schizophrenia, and migraines who presents to the ED for evaluation of chest tightness associated with asthma, ongoing since yesterday. Patient's symptoms had initially improved after taking Albuterol. Earlier today, patient was walking out of her boyfriends apartment when she began to experience another asthma attack after a sudden truong of air that did not improve with Albuterol, thus, prompting the patient's ED visit. Patient admits to cough productive of clear, occasionally brown sputum. Patient denies a runny nose. PCP: Dr. Moo Brown Past Medical History Reviewed: Historical Data, Nursing Documentation, Vital Signs Vital Signs: Last Vital Signs Temp 97.7 F 09/18/18 14:56 Pulse 100 H 09/18/18 14:56 Resp 20 09/18/18 14:56 BP 135/89 09/18/18 14:56 Pulse Ox 95 09/18/18 14:56 - Medical History PMH: Anxiety, Arthritis, Asthma, Bronchitis, Depression, Emphysema, Fractures (ankles, c5 neck), HIV, Migraine, Schizophrenia Denies: Alzheimer's Disease, Anemia, Atrial Fibrillation, Bipolar Disorder, CAD, Cardia Arrhythmia, CHF, COPD, Crohn's Disease, Dementia, Diverticulitis, Gastritis, Gall Bladder Disease, HTN, Hypercholesterolemia, Hyperthyroidism, Hypothyroidism, Kidney Stones, Mitral Valve Prolapse, Multiple Sclerosis, Ost eoporosis, Pancreatitis, Paranoia, Parkinson's Disease, Peripheral Edema, Pneumonia, Post Traumatic Stress Disorder, Pulmonary Embolism, Chronic Kidney Disease, Rheumatoid Arthritis, Seizures, Sickle Cell Disease, Sexually Transmitted Disease, Sleep Apnea, TIA Other PMH: Above PMH obtained from previous charts - Surgical History Surgical History: Back Surgery, Denies: Appendectomy, CABG, Carotid Endarterectomy, Cholecystectomy, Coronary Stent, Pacemaker, Tonsillectomy Other surgeries: Above PMH obtained from previous charts - Family History Family History: States: Hypertension - Social History Current smoker - smoking cessation education provided: Yes (occasionally, but regularly exposed to secondhand) - Home Medications Home Medications: Ambulatory Orders Medication Instructions Recorded Albuterol/Ipratropium [Duoneb 3 3 ml INH RQ4 PRN #60 neb 11/24/17 mg/0.5 mg (3 ml) UD] Benztropine [Cogentin] 1 mg PO HS 30 Days #30 tab 12/14/17 Escitalopram [Lexapro] 10 mg PO DAILY 30 Days #30 tab 12/14/17 Fluticasone/Salmeterol 500/50 1 puff IH Q12 puff 12/14/17 [Advair Diskus 500/50] risperiDONE [RisperDAL Tab] 1 mg PO DAILY 30 Days #30 tab 12/14/17 risperiDONE [RisperDAL Tab] 3 mg PO HS 30 Days #30 tab 12/14/17 Propranolol HCl 10 mg PO TID #54 tablet 12/20/17 Albuterol Sulfate [Proair Hfa] 0.09 mg IH Q6H PRN #2 inh 01/03/18 Gabapentin [Neurontin] 300 mg PO TID 5 Days cap 01/03/18 methIMAzole [Tapazole] 10 mg PO BID 5 Days tab 01/03/18 Acetaminophen [Acetaminophen 8 650 mg PO Q8 PRN #21 tablet.er 05/10/18 Hour] Cyclobenzaprine [Cyclobenzaprine 10 mg PO TID PRN #12 tab 05/10/18 HCl] Nabumetone [Relafen] 500 mg PO BID #10 tab 05/21/18 Cyclobenzaprine [Cyclobenzaprine 10 mg PO DAILY PRN #10 tab 07/17/18 HCl] Non-Formulary 1 ea TOP ONCE #1 ea 07/17/18 Albuterol 0.083% [Albuterol 60 ml IH Q4 PRN #1 neb 09/18/18 Sulfate 3 Ml] Albuterol HFA [Ventolin HFA 90 200 puff IH Q4 PRN #1 pump 09/18/18 mcg/actuation (8 g)] Prednisone 50 mg PO DAILY #4 tablet 09/18/18 - Allergies Allergies/Adverse Reactions: Allergies Allergy/AdvReac Type Severity Reaction Status Date / Time aspirin Allergy SHORTNESS Verified 09/18/18 14:58 OF BREATH mold Allergy SHORTNESS Verified 09/18/18 14:58 OF BREATH tomato Allergy SHORTNESS Verified 09/18/18 14:58 OF BREATH trazodone Allergy RASH Verified 09/18/18 14:58 lettuce Allergy RASH Uncoded 09/18/18 14:58 Review of Systems ROS Statement: Except As Marked, All Systems Reviewed And Found Negative (as per HPI) ENT: Negative for: Nose Discharge Cardiovascular: Positive for: Chest Pain (tightness) Respiratory: Positive for: Cough, Sputum (clear, occasionally brown) Physical Exam - Reviewed Nursing Documentation Reviewed: Yes Vital Signs Reviewed: Yes - Physical Exam Appears: Positive for: No Acute Distress Head Exam: Positive for: ATRAUMATIC, NORMAL INSPECTION, NORMOCEPHALIC Skin: Positive for: Warm, Dry Eye Exam: Positive for: EOMI, PERRL ENT: Negative for: Pharyngeal Erythema, Tonsillar Exudate Neck: Positive for: Painless ROM, Supple Cardiovascular/Chest: Positive for: Regular Rate, Rhythm. Negative for: Murmur Respiratory: Positive for: Wheezing (inspiratory and expiratory ), Respiratory Distress (mild). Negative for: Accessory Muscle Use Gastrointestinal/Abdominal: Positive for: Soft. Negative for: Tenderness Back: Positive for: Normal Inspection Extremity: Negative for: Pedal Edema, Deformity Lymphatic: Negative for: Adenopathy Neurologic/Psych: Positive for: Alert. Negative for: Motor/Sensory Deficits Medical Decision Making Medical Decision Making: Time: 1507 Impression: Asthmatic Exacerbation Plan: [Duoneb 3 mg/0.5 mg (3 ml) UD] 9 ml INH Peak Flow Pre/Post Tx .Pre/Post Treatment Time: 1635 FINDINGS: LUNGS: No active pulmonary disease. PLEURA: No significant pleural effusion identified. No pneumothorax apparent. CARDIOVASCULAR: No aortic atherosclerotic calcification present. Normal cardiac size. No pulmonary vascular congestion. OSSEOUS STRUCTURES: No significant abnormalities. VISUALIZED UPPER ABDOMEN: Normal. OTHER FINDINGS: None. IMPRESSION: No active disease. Time: 1650 Minimal improvement of peak flow after Duoneb. Solumedrol ordered. 1730 Pt reports improvement. Lungs with improved airmovement and wheeze decreased significantly. No respiratory distress. Scribe Attestation: Documented by Alexis Glasgow, acting as a scribe for provider Kayleen Ibrahim MD. All medical record entries made by the Scribe were at my direction and personally dictated by me. I have reviewed the chart and agree that the record accurately reflects my personal performance of the history, physical exam, medical decision making, and the department course for this patient. I have also personally directed, reviewed, and agree with the discharge instructions and disposition. - ECG O2 Sat by Pulse Oximetry: 95 Disposition - Clinical Impression Clinical Impression: Asthma exacerbation Counseled Patient/Family Regarding: Studies Performed, Diagnosis, Need For Followup, Rx Given - Disposition Referrals: Moo Moreland MD [Family Provider] - Juan Sheets MD [Staff Provider] - Disposition: Routine/Home Disposition Time: 17:00 Condition: IMPROVED Additional Instructions: FOLLOWUP WITH DR MORELAND FOR YOUR ASTHMA AND DR SHEETS FOR YOUR CHRONIC PAIN. Prescriptions: Albuterol 0.083% [Albuterol Sulfate 3 Ml] 60 ml IH Q4 PRN #1 neb PRN Reason: Wheezing Albuterol HFA [Ventolin HFA 90 mcg/actuation (8 g)] 200 puff IH Q4 PRN #1 pump PRN Reason: Wheezing Prednisone 50 mg PO DAILY #4 tablet Instructions: Asthma, Adult (DC), Chronic Pain (DC)
--- NOTE | 2018-09-18 16:38 | RAD ---
Date of service: 09/18/2018 HISTORY: sob asthma COMPARISON: 07/17/2018 TECHNIQUE: Chest PA and lateral FINDINGS: LUNGS: No active pulmonary disease. PLEURA: No significant pleural effusion identified. No pneumothorax apparent. CARDIOVASCULAR: No aortic atherosclerotic calcification present. Normal cardiac size. No pulmonary vascular congestion. OSSEOUS STRUCTURES: No significant abnormalities. VISUALIZED UPPER ABDOMEN: Normal. OTHER FINDINGS: None. IMPRESSION: No active disease.
[2018-09-18 18:13] VITALS: PULSE 83; O2SAT 97
== END 2018-09-18 17:36 | disposition home or self-care (01) ==
LOC: H.ER 14:52
DX: J45.901 Unspecified asthma with (acute) exacerbation (principal); F17.200 Nicotine dependence, unspecified, uncomplicated; J43.9 Emphysema, unspecified
CPT/HCPCS: 71046; 81025; 94640; 96372; 99283; J2930

== ENCOUNTER 2018-10-23 15:40 | Inpatient (IN) | payer MEDICAID ==
[2018-10-23 15:40] VITALS: BMI 32.2
[2018-10-23] MEDS ORDERED: Albuterol 0.083% Inhal Sol (2.5 mg/3 mL) UD INH STA (17:51)
[2018-10-23] MEDS ORDERED: Albuterol-Ipratrop 3 mg / 0.5 (3 ml) UD INH STA (17:51)
[2018-10-23] MEDS ORDERED: Naproxen 500 MG TAB PO STA (17:51)
--- NOTE | 2018-10-23 18:00 | ED PDOC ---
HPI: CCC, URI, Sore Throat Time Seen by Provider: 10/23/18 17:31 Chief Complaint (Nursing): Cough, Cold, Congestion Chief Complaint (Provider): cough, left ear pain History Per: Patient History/Exam Limitations: no limitations Onset/Duration Of Symptoms: Days (x1 week) Current Symptoms Are (Timing): Still Present Location Of Pain: Ear(s) (left) Associated Symptoms: Cough. denies: Fever, Chills, Nausea, Vomiting, Diarrhea Ear Symptoms: Left: Ear Pain Additional Complaint(s): Yasmin Peterson is a 38 year old female, with a past medical history of asthma, chronic bronchitis, depression, Bipolar disorder and PTSD, who presents to the emergency department complaining of cough and left ear pain ongoing for x1 week. She has been taking OTC medications w/o relief but did not take any medication prior to arrival. Patient states child at home recently had an ear infection. LMP was on the middle of last month. Patient also reports having suicidal thoughts in the past and hasn't taken her psychiatric medications over the past x3 months. Patient states she has "no desire to keep on living" and hasn't been eating recently. She denies any fever, chills, nausea, vomit, diarrhea, abdominal pain, chest pain, shortness of breath, homicidal ideation, hallucinations or other medical complaints. PMD: [employer] [place] Past Medical History Reviewed: Historical Data, Nursing Documentation, Vital Signs Vital Signs: Last Vital Signs Temp 98.7 F 10/23/18 16:43 Pulse 71 10/23/18 16:43 Resp 18 10/23/18 16:43 BP 111/72 10/23/18 16:43 Pulse Ox 99 10/23/18 16:43 - Medical History PMH: Anxiety, Arthritis, Asthma, Bronchitis, Depression, Emphysema, Fractures (ankles, c5 neck), Hepatitis (C), HIV, Migraine, Post Traumatic Stress Disorder, Schizophrenia - Surgical History Surgical History: Back Surgery, - Family History Family History: States: Unknown Family Hx, Hypertension - Home Medications Home Medications: Ambulatory Orders Medication Instructions Recorded RX: Albuterol/Ipratropium [Duoneb 3 ml INH RQ4 PRN #60 neb 11/24/17 3 mg/0.5 mg (3 ml) UD] RX: Benztropine [Cogentin] 1 mg PO HS 30 Days #30 tab 12/14/17 RX: Escitalopram [Lexapro] 10 mg PO DAILY 30 Days #30 tab 12/14/17 RX: Fluticasone/Salmeterol 500/50 1 puff IH Q12 puff 12/14/17 [Advair Diskus 500/50] RX: risperiDONE [RisperDAL Tab] 1 mg PO DAILY 30 Days #30 tab 12/14/17 RX: risperiDONE [RisperDAL Tab] 3 mg PO HS 30 Days #30 tab 12/14/17 RX: Propranolol HCl 10 mg PO TID #54 tablet 12/20/17 Albuterol Sulfate [Proair Hfa] 0.09 mg IH Q6H PRN #2 inh 01/03/18 RX: Gabapentin [Neurontin] 300 mg PO TID 5 Days cap 01/03/18 RX: methIMAzole [Tapazole] 10 mg PO BID 5 Days tab 01/03/18 Acetaminophen [Acetaminophen 8 650 mg PO Q8 PRN #21 tablet.er 05/10/18 Hour] Cyclobenzaprine [Cyclobenzaprine 10 mg PO TID PRN #12 tab 05/10/18 HCl] Nabumetone [Relafen] 500 mg PO BID #10 tab 05/21/18 Cyclobenzaprine [Cyclobenzaprine 10 mg PO DAILY PRN #10 tab 07/17/18 HCl] RX: Non-Formulary 1 ea TOP ONCE #1 ea 07/17/18 Albuterol 0.083% [Albuterol 60 ml IH Q4 PRN #1 neb 09/18/18 Sulfate 3 Ml] RX: Albuterol HFA [Ventolin HFA 90 200 puff IH Q4 PRN #1 pump 09/18/18 mcg/actuation (8 g)] RX: Prednisone 50 mg PO DAILY #4 tablet 09/18/18 - Allergies Allergies/Adverse Reactions: Allergies Allergy/AdvReac Type Severity Reaction Status Date / Time aspirin Allergy SHORTNESS Verified 10/23/18 16:43 OF BREATH mold Allergy SHORTNESS Verified 10/23/18 16:43 OF BREATH tomato Allergy SHORTNESS Verified 10/23/18 16:43 OF BREATH trazodone Allergy RASH Verified 10/23/18 16:43 lettuce Allergy RASH Uncoded 10/23/18 16:43 Review of Systems ROS Statement: Except As Marked, All Systems Reviewed And Found Negative Constitutional: Negative for: Fever, Chills ENT: Positive for: Ear Pain (left) Cardiovascular: Negative for: Chest Pain Respiratory: Positive for: Cough. Negative for: Shortness of Breath Gastrointestinal: Negative for: Nausea, Vomiting, Abdominal Pain, Diarrhea Psych: Positive for: Depression. Negative for: Suicidal ideation (homicidal ideation), Other (hallucinations) Physical Exam - Reviewed Nursing Documentation Reviewed: Yes Vital Signs Reviewed: Yes - Physical Exam Comments: GENERAL APPEARANCE: Patient is awake, alert, oriented x 3, in no acute distress. Resting comfortably, interacting with boyfriend at bedside. SKIN: Warm, dry; (-) cyanosis. EYES: (-) conjunctival injection ENMT: Mucous membranes moist. Airway patent: (-) stridor. Pharynx: Clear , uvula midline (-) swelling, (-) erythema. TMs: (-) bulging, (-) erythema. Left ear canal: (+) edema, (+) erythema and (+) exudates. (+) Tenderness with helix and tragus movement of left ear. Right ear canal unremarkable. NECK: Supple, FROM (-) tenderness, (-) stiffness, (-) lymphadenopathy. CHEST AND RESPIRATORY: (+) Scattered inspiratory wheezing; (-) rales, (-) rhonchi; breath sounds equal bilaterally. Respirations nonlabored. Speaking in full sentences. HEART AND CARDIOVASCULAR: (-) irregularity ABDOMEN AND GI: Soft; (-) tenderness. EXTREMITIES: (-) deformity, (-) edema. NEURO AND PSYCH: Mental status as above; (-) focal findings. Affect: depressed. (-) facial asymmetry (-) aphasia - Laboratory Results Result Diagrams: 10/23/18 20:37 10/23/18 20:37 Urine POC: Negative - ECG O2 Sat by Pulse Oximetry: 99 (RA) Pulse Ox Interpretation: Normal Medical Decision Making Medical Decision Making: Time: 17:30 Initial Impression: Cough, asthma exacerbation, otitis externa and depression. Initial Plan: --Drug screen, urine --Crisis evaluation as ordered -- test --Albuterol 2.5mg INH --Duoneb 3 ml INH x2 --Tylenol 650mg PO --Reevaluation --Ciprodex 4 drop AU --Solu-medrol 125mg IM 18:05 test: negative 1849 Crisis at bedside. Utox: (+) cannabinoids Upreg: negative 1924 Per crisis evaluation, patient to be admitted for Psychotic Disorder per Dr Denise. CBC, CMP, serum alcohol, U/A, CXR, and EKG ordered. 2014 EKG: NSR @ 71bpm (-) ST elevation, QTc [id number] CXR: no acute disease as read by Mario PLATA Labs reviewed, slight elevations of LFTs - consistent with patient's history of hepatitis. CBC and U/A unremarkable. On re-evaluation, patient resting comfortably and offers no complaints. Lungs clear to auscultation with resolution of wheezing. Respirations nonlabored. Patient is medically stable for psychiatric admission. Arrangements made for admission. Vitals stable. ----- Scribe Attestation: Documented by Caden Justice, acting as a scribe for Hayley Martin PA-C. Provider Scribe Attestation: All medical record entries made by the Scribe were at my direction and personally dictated by me. I have reviewed the chart and agree that the record accurately reflects my personal performance of the history, physical exam, medical decision making, and the department course for this patient. I have also personally directed, reviewed, and agree with the discharge instructions and disposition. Disposition - Clinical Impression Clinical Impression: Otitis externa of left ear, Asthma exacerbation, Psychotic disorder, Elevated LFTs - Patient ED Disposition Is Patient to be Admitted: Yes Counseled Patient/Family Regarding: Studies Performed, Diagnosis - Disposition Disposition Time: 19:25 Condition: FAIR - Pt Status Changed To: Hospital Disposition Of: Inpatient (psych) - Admit Certification Admit to Inpatient:: After my assessment, the patient will require hospitalization for at least two midnights. This is because of the severity of symptoms shown, intensity of services needed, and/or the medical risk in this patient being treated as an outpatient. - POA Present On Arrival: None Results - Lab Results Lab Results: 10/23/18 18:07 Urine Opiates Screen Negative Urine Methadone Screen Negative Ur Barbiturates Screen Negative Ur Phencyclidine Scrn Negative Ur Amphetamines Screen Negative U Benzodiazepines Scrn Negative U Oth Cocaine Metabols Negative U Cannabinoids Screen Positive H
[2018-10-23] MEDS ORDERED: Albuterol-Ipratrop 3 mg / 0.5 (3 ml) UD ONE (18:32)
[2018-10-23] MEDS ORDERED: Albuterol 0.083% Inhal Sol (2.5 mg/3 mL) UD ONE (18:32)
[2018-10-23 18:38] LABS: PHENCYCLIDINE, UR NEGATIVE (NEGATIVE)
[2018-10-23 18:48] LABS: BARBITURATES, UR NEGATIVE (NEGATIVE); BENZODIAZEPINES, UR NEGATIVE (NEGATIVE); OPIATES, UR NEGATIVE (NEGATIVE)
[2018-10-23] MEDS ORDERED: Ciprofloxacin/Dexamethasone OTIC SUSP AS STA (19:27)
[2018-10-23] MEDS ORDERED: Naproxen 500 MG TAB PO ONE (20:24)
[2018-10-23 21:12] LABS: ALB/GLOB RATIO 1.2 (1.0-2.1); ALBUMIN 4.4 g/dL (3.5-5.0); ALT/SGPT 123 U/L (9-52); AST/SGOT 172 U/L (14-36); BASO # 0.1 K/uL (0.0-0.2); BASO % 0.8 % (0.0-2.0); BLOOD UREA NITROGEN 16 mg/dl (7-17); CALCIUM 9.3 mg/dL (8.4-10.2); EOS # 0.1 K/uL (0.0-0.7); EOS % 1.1 % (0.0-4.0); GFR NON-AFRICAN AMERICAN > 60; HEMOGLOBIN 14.7 g/dL (12.0-16.0); LYMPH # 2.7 K/uL (1.0-4.3); LYMPH % 27.8 % (20.0-40.0); MEAN CELL VOLUME 97.4 fl (81.0-99.0); MEAN CORPUSCULAR HEMOGLOBIN 31.9 pg (27.0-31.0); MEAN CORPUSCULAR HGB CONC 32.7 g/dL (33.0-37.0); MONO # 0.7 K/uL (0.0-0.8); MONO % 6.9 % (0.0-10.0); NEUT # 6.2 K/uL (1.8-7.0); NEUT % 63.4 % (50.0-75.0); NRBC % 0.1 % (0.0-0.0); RBC 4.61 Mil/uL (3.80-5.20); RED CELL DISTRIBUTION WIDTH 13.7 % (11.5-14.5); WHITE BLOOD COUNT 9.7 K/uL (4.8-10.8)
[2018-10-23 21:13] LABS: SQUAMOUS EPITHIAL 3 /hpf (0-5); URINE BILIRUBIN NEGATIVE (NEGATIVE); URINE BLOOD NEGATIVE (NEGATIVE); URINE GLUCOSE (UA) NEG (NEGATIVE); URINE LEUKOCYTE ESTERASE NEG Leu/uL (Negative); URINE PROTEIN 30 mg/dL (NEGATIVE)
[2018-10-23 21:20] LABS: URINE CLARITY SLIGHT-CLOUDY (Clear); URINE COLOR YELLOW (YELLOW)
[2018-10-23] MEDS ORDERED: Alum-Mag Hydrox-Simethicone Susp (30 mL) PO PRN (23:08)
[2018-10-23] MEDS ORDERED: DiphenhydrAMINE 50 mg/ml Inj IM PRN (23:08)
[2018-10-23] MEDS ORDERED: Magnesium Hydroxide Susp 30 ml UD PO PRN (23:08)
--- NOTE | 2018-10-23 23:34 | PCM.BM ---
<Kirt Leo - Last Filed: 10/23/18 23:31> Treatment Plan Problems - Problems identified on initial assessmt Auditory Hallucinations Date Initiated: 10/23/18 Time Initiated: 23:33 Assessment reference: NA Status: Active Visual Hallucinations Date Initiated: 10/23/18 Time Initiated: 23:33 Assessment reference: NA Status: Active Tactile Hallucinations Date Initiated: 10/23/18 Time Initiated: 23:33 Assessment reference: NA Status: Active Altered Thought Process Date Initiated: 10/23/18 Time Initiated: 23:34 Assessment reference: NA Status: Active Medication nonadherence Date Initiated: 10/23/18 Time Initiated: 23:34 Assessment reference: NA Status: Active Altered Sleep Patterns Date Initiated: 10/23/18 Time Initiated: 23:34 Assessment reference: NA Status: Active Treatment assets and liabiliti Patient Assests: cooperative, resourceful, ADL independent, good support system, negotiates basic needs, cognitively intact Patient Liabilities: substance abuse, medical problems - Milieu Protocol Maintain good personal hygiene: every shift Encourage regular showers, every shift Remind patient to perform daily oral care, every shift Assist patient to perform ADL's Maintain personal safety: daily Educate patient to report safety concerns to staff, daily Monitor environment for contraband/sharps Medication safety: Monitor for expected outcome, potential side effects: daily, Assess barriers to learning: daily, Assess readiness for medication education: daily <Bennie Steward - Last Filed: 10/27/18 09:08> Family Contact Family involvement: Family/SO is involved Family contact: Patient declines to allow family contact at present Family contact name: Pt refused. - Goals for Treatment Patient goals for treatment: Pt would like to be stabilized on medication and referred to outpatient treatment, so she does not have a gap in medication management. Discharge/Continuing Care - Education Needs Education Needs: Patient Medication, Patient Diagnosis/Disease Process, Patient Coping Skills, Patient Aftercare Safety Plan - Discharge Discharge Criteria: Tolerates medication w/o severe side effects, Free of paranoid thoughts, Free of agitation, Normal sleep pattern, Ability to care for self, No longer exhibiting s/s of withdrawal, Reduction of target symptoms Discharge to:: Home - Treatment Team Participation Patient/Family/SO Statement: 10/27/18 09:10 Pt seen in treatment team on 2/20. Pt reported that she began feeling unstable on March 07, 2018. Pt reported that the outpatient clinic never called her about setting up another appointment after they cancelled her intake. Pt was concerned because she also has an ear infection and asthma and she has not been eating anything solid and only drinking juice. Pt reported feeling attacked by evil spirits who tear her clothes. Pt complained of sweating and anxiety. Pt appeared to be experiencing paranoid delusions and her speech and thought process were tangential. Pt denied SI/HI and is oriented X4. Discussed with Family/SO: No Was Patient/Family/SO present at Treatment Team Meeting: Yes <Caroline Khan - Last Filed: 10/29/18 08:49> - Diagnosis (1) Bipolar disorder Status: Acute Interventions: Medication management, Individual and group therapy, Psychoeducation 10/29/18 08:49 (2) PTSD (post-traumatic stress disorder) Status: Acute Interventions: Medication management, Individual and group therapy, Psychoeducation 10/29/18 08:49
[2018-10-24 00:23] VITALS: O2SAT 99
[2018-10-24] MEDS ORDERED: Albuterol-Ipratrop 3 mg / 0.5 (3 ml) UD INH ONE (06:07)
[2018-10-24] MEDS ORDERED: Albuterol-Ipratrop 3 mg / 0.5 (3 ml) UD INH PRN (08:52)
--- NOTE | 2018-10-24 08:55 | CP.PCM.HP ---
History of Present Illness - History of Present Illness History of Present Illness: pt admitted to [facility] for depression, a/v halludinations and depression. denies si/hi at present. no f/c, n/v/d. bw noted. c/o asthma s/s. Present on Admission - Present on Admission Any Indicators Present on Admission: No Review of Systems - Respiratory Respiratory: As Per HPI, Wheezing, Chest Congestion - Psychiatric Psychiatric: As Per HPI, Auditory Hallucinations, Depression, Suicidal Ideation, Visual Hallucinations Past Patient History - Infectious Disease Hx of Infectious Diseases: None - Past Medical History & Family History Past Medical History?: Yes - Past Social History Smoking Status: Former Smoker - CARDIAC Hx Cardiac Disorders: No - PULMONARY Hx Asthma: Yes Hx Bronchitis: Yes Hx Emphysema: Yes - NEUROLOGICAL Hx Migraine: Yes - HEENT Hx HEENT Problems: No - RENAL Hx Chronic Kidney Disease: No Hx Kidney Stones: No - ENDOCRINE/METABOLIC Hx Hyperthyroidism: No Hx Hypothyroidism: No - HEMATOLOGICAL/ONCOLOGICAL Hx Human Immunodeficiency Virus (HIV): Yes - INTEGUMENTARY Hx Dermatological Problems: No - MUSCULOSKELETAL/RHEUMATOLOGICAL Hx Arthritis: Yes Hx Fractures: Yes (ankles, c5 neck) - GASTROINTESTINAL Hx Crohn's Disease: No Hx Diverticulitis: No Hx Gall Bladder Disease: No Hx Gastritis: No Hx Pancreatitis: No - GENITOURINARY/GYNECOLOGICAL Hx Sexually Transmitted Disorders: No - PSYCHIATRIC Hx Anxiety: Yes Hx Depression: Yes Hx Post Traumatic Stress Disorder: Yes Hx Schizophrenia: Yes - SURGICAL HISTORY Hx Appendectomy: No Hx Carotid Endarterectomy: No Hx Cholecystectomy: No Hx Coronary Artery Bypass Graft: No Hx Coronary Stent: No Hx Tonsillectomy: No - ANESTHESIA Hx Anesthesia: Yes Hx Anesthesia Reactions: No Hx Malignant Hyperthermia: No Meds Allergies/Adverse Reactions: Allergies Allergy/AdvReac Type Severity Reaction Status Date / Time aspirin Allergy SHORTNESS Verified 10/23/18 16:43 OF BREATH mold Allergy SHORTNESS Verified 10/23/18 16:43 OF BREATH tomato Allergy SHORTNESS Verified 10/23/18 16:43 OF BREATH trazodone Allergy RASH Verified 10/23/18 16:43 lettuce Allergy RASH Uncoded 10/23/18 16:43 Physical Exam - Constitutional Appears: Well, Non-toxic, No Acute Distress - Head Exam Head Exam: ATRAUMATIC, NORMAL INSPECTION, NORMOCEPHALIC - Eye Exam Eye Exam: EOMI, Normal appearance, PERRL Pupil Exam: NORMAL ACCOMODATION, PERRL - ENT Exam ENT Exam: Mucous Membranes Moist, Normal Exam - Neck Exam Neck exam: Positive for: Normal Inspection - Respiratory Exam Respiratory Exam: Clear to Auscultation Bilateral, NORMAL BREATHING PATTERN - Cardiovascular Exam Cardiovascular Exam: REGULAR RHYTHM, RRR, +S1, +S2 - GI/Abdominal Exam GI & Abdominal Exam: Normal Bowel Sounds, Soft. absent: Tenderness - Extremities Exam Extremities exam: Positive for: full ROM, normal capillary refill, normal inspection, pedal pulses present - Back Exam Back exam: FULL ROM, NORMAL INSPECTION - Neurological Exam Neurological exam: Alert, CN II-XII Intact, Normal Gait, Oriented x3, Reflexes Normal - Psychiatric Exam Psychiatric exam: Normal Affect, Normal Mood - Skin Skin Exam: Dry, Intact, Normal Color, Warm Results - Vital Signs Recent Vital Signs: Last Vital Signs Temp 97.2 F L 10/24/18 06:00 Pulse 64 10/24/18 06:24 Resp 18 10/24/18 06:00 BP 113/80 10/24/18 06:00 Pulse Ox 99 10/24/18 00:26 - Labs Result Diagrams: 10/23/18 20:37 10/23/18 20:37 Labs: Laboratory Results - last 24 hr 10/23/18 10/23/18 10/23/18 18:07 20:37 20:37 WBC 9.7 RBC 4.61 Hgb 14.7 Hct 44.8 MCV 97.4 MCH 31.9 H MCHC 32.7 L RDW 13.7 Plt Count 246 MPV 9.0 Neut % (Auto) 63.4 Lymph % (Auto) 27.8 [place] % (Auto) 6.9 Eos % (Auto) 1.1 Baso % (Auto) 0.8 Neut # (Auto) 6.2 Lymph # (Auto) 2.7 [place] # (Auto) 0.7 Eos # (Auto) 0.1 Baso # (Auto) 0.1 Sodium 143 Potassium 4.1 Chloride 102 Carbon Dioxide 26 Anion Gap 19 BUN 16 Creatinine 0.5 L Est GFR ( Amer) > 60 Est GFR (Non-Af Amer) > 60 Random Glucose 103 Calcium 9.3 Total Bilirubin 0.5 AST 172 H D ALT 123 H D Alkaline Phosphatase 121 Total Protein 8.1 Albumin 4.4 Globulin 3.8 Albumin/Globulin Ratio 1.2 Triglycerides Cholesterol LDL Cholesterol Direct HDL Cholesterol Thyroxine (T4) TSH 3rd Generation Urine Color Urine Clarity Urine pH Ur Specific [place] Urine Protein Urine Glucose (UA) Urine Ketones Urine Blood Urine Nitrate Urine Bilirubin Urine Urobilinogen Ur Leukocyte Esterase Urine RBC (Auto) Urine Microscopic WBC Ur Squamous Epith Cells Urine Opiates Screen Negative Urine Methadone Screen Negative Ur Barbiturates Screen Negative Ur Phencyclidine Scrn Negative Ur Amphetamines Screen Negative U Benzodiazepines Scrn Negative U Oth Cocaine Metabols Negative U Cannabinoids Screen Positive H Alcohol, Quantitative < 10 10/23/18 10/24/18 20:37 05:40 WBC RBC Hgb Hct MCV MCH MCHC RDW Plt Count MPV Neut % (Auto) Lymph % (Auto) [place] % (Auto) Eos % (Auto) Baso % (Auto) Neut # (Auto) Lymph # (Auto) [place] # (Auto) Eos # (Auto) Baso # (Auto) Sodium Potassium Chloride Carbon Dioxide Anion Gap BUN Creatinine Est GFR ( Amer) Est GFR (Non-Af Amer) Random Glucose Calcium Total Bilirubin AST ALT Alkaline Phosphatase Total Protein Albumin Globulin Albumin/Globulin Ratio Triglycerides 121 D Cholesterol 83 LDL Cholesterol Direct 52 HDL Cholesterol 16 L Thyroxine (T4) 13.0 H TSH 3rd Generation 0.49 Urine Color Yellow Urine Clarity Slight-cloudy Urine pH 6.0 Ur Specific [place] 1.026 Urine Protein 30 Urine Glucose (UA) Neg Urine Ketones Negative Urine Blood Negative Urine Nitrate Negative Urine Bilirubin Negative Urine Urobilinogen 1.0 Ur Leukocyte Esterase Neg Urine RBC (Auto) 3 Urine Microscopic WBC 1 Ur Squamous Epith Cells 3 Urine Opiates Screen Urine Methadone Screen Ur Barbiturates Screen Ur Phencyclidine Scrn Ur Amphetamines Screen U Benzodiazepines Scrn U Oth Cocaine Metabols U Cannabinoids Screen Alcohol, Quantitative Assessment & Plan (1) DVT prophylaxis Assessment and Plan: ambulation Status: Acute (2) Psychosis Assessment and Plan: psych meds, interventions, therapies Status: Acute (3) Asthma Assessment and Plan: duonebs, advair steroids prn Status: Acute Decision To Admit - Pt Status Changed To: Hospital Disposition Of: Inpatient - Admit Certification Admit to Inpatient:: After my assessment, the patient will require hospitalization for at least two midnights. This is because of the severity of symptoms shown, intensity of services needed, and/or the medical risk in this patient being treated as an outpatient. - . Bed Request Type: [facility] Psych Admitting Physician: Alejandro Varma
[2018-10-24] MEDS ORDERED: Nabumetone 500 MG TAB PO SCH (09:00)
--- NOTE | 2018-10-24 09:02 | CARD ---
APPROVED REPORT Date of service: 10/23/2018 EKG Measurement Heart [id number] <Conclusion> Normal sinus rhythm Normal ECG
[2018-10-24] MEDS: Albuterol-Ipratrop 3 mg / 0.5 (3 ml) UD INH PRN (09:06)
[2018-10-24] MEDS: Fluticasone-Salmeterol 500-50mcg Diskus IH SCH ×2 (10:36→21:21)
--- NOTE | 2018-10-24 16:31 | RAD ---
Date of service: 10/23/2018 HISTORY: psych admit COMPARISON: Chest radiographs 09/18/2018. FINDINGS: LUNGS: No active pulmonary disease. PLEURA: No significant pleural effusion identified, no pneumothorax apparent. CARDIOVASCULAR: No aortic atherosclerotic calcification present. Normal cardiac size. No pulmonary vascular congestion. OSSEOUS STRUCTURES: No significant abnormalities. VISUALIZED UPPER ABDOMEN: Normal. OTHER FINDINGS: None. IMPRESSION: No interval acute cardiopulmonary disease appreciated.
--- NOTE | 2018-10-24 19:07 | PCM.PSYCH ---
Initial Psychiatric Evaluation - Initial Psychiatric Evaluation Type of Admission: Voluntary Chief Complaint (in patient's own words): used heroin approx. two weeks ago, obtained suboxone from alternative means (non prescribed), became depressed reportedly hearing the voice of emily saying it was going to get herm . davida who rcrease 4 anon ne Current Medications: Active Medications Generic Name Dose Route Start Last Admin Trade Name Freq PRN Reason Stop Dose Admin Acetaminophen 650 mg 10/23/18 23:08 Tylenol 325mg Tab PO Q4 PRN Pain, moderate (4-7) Al Hydrox/Mg Hydrox/Simethicone 30 ml 10/23/18 23:08 Maalox Plus 30 Ml PO Q4 PRN Dyspepsia Albuterol 1 puff 10/24/18 08:51 Ventolin Hfa 90 Mcg/Actuation (8 G) IH Q4 PRN Wheezing Albuterol/Ipratropium 3 ml 10/24/18 08:51 10/24/18 09:06 Duoneb 3 Mg/0.5 Mg (3 Ml) Ud INH 3 ml RQ4 PRN Administration Shortness of Breath Albuterol/Ipratropium 3 ml 10/24/18 08:52 Duoneb 3 Mg/0.5 Mg (3 Ml) Ud INH RQ4 PRN Shortness of Breath Diphenhydramine HCl 50 mg 10/23/18 23:08 Benadryl IM Q6 PRN Extrapyramidal S/S Unable PO Diphenhydramine HCl 50 mg 10/23/18 23:08 Benadryl PO Q6 PRN Extrapyramidal Symptoms Diphenhydramine HCl 50 mg 10/23/18 23:11 Benadryl PO HS PRN Sleep Haloperidol 5 mg 10/23/18 23:08 Haldol PO Q4 PRN Agitation Haloperidol Lactate 5 mg 10/23/18 23:08 Haldol IM Q4 PRN Agitation, Unable to Take PO Lorazepam 2 mg 10/23/18 23:08 Ativan IM Q8 PRN Anxiety/Agitation,Unable PO Lorazepam 1 mg 10/24/18 13:45 10/24/18 13:35 Ativan PO 1 mg Q8 PRN Administration Anxiety/Agitation Lorazepam 1 mg 10/24/18 18:15 10/24/18 18:21 Ativan PO 1 mg Q8 SIDNEY Administration Magnesium Hydroxide 30 ml 10/23/18 23:08 Milk Of Magnesia PO HS PRN Constipation Methimazole 10 mg 10/24/18 09:00 10/24/18 16:34 Tapazole PO 10 mg BID SIDNEY Administration Nabumetone 500 mg 10/24/18 09:00 10/24/18 16:33 Relafen PO Not Given BID SIDNEY Fluticasone/Salmeterol 1 puff 10/24/18 09:00 10/24/18 10:36 Advair Diskus 500/50 IH 1 puff Q12 SIDNEY Administration Past Psychiatric History - Past Psychiatric History Pertinent Medical Hx (Current Medical&Sleep Prob, Allergies): Allergies Allergy/AdvReac Type Severity Reaction Status Date / Time aspirin Allergy SHORTNESS Verified 10/23/18 16:43 OF BREATH mold Allergy SHORTNESS Verified 10/23/18 16:43 OF BREATH tomato Allergy SHORTNESS Verified 10/23/18 16:43 OF BREATH trazodone Allergy RASH Verified 10/23/18 16:43 lettuce Allergy RASH Uncoded 10/23/18 16:43 Albuterol/Ipratropium [Duoneb 3 mg/0.5 mg (3 ml) UD] 3 ml INH RQ4 PRN #60 neb 11/24/17 Benztropine [Cogentin] 1 mg PO HS 30 Days #30 tab 12/14/17 Escitalopram [Lexapro] 10 mg PO DAILY 30 Days #30 tab 12/14/17 Fluticasone/Salmeterol 500/50 [Advair Diskus 500/50] 1 puff IH Q12 puff 12/14/17 risperiDONE [RisperDAL Tab] 1 mg PO DAILY 30 Days #30 tab 12/14/17 risperiDONE [RisperDAL Tab] 3 mg PO HS 30 Days #30 tab 12/14/17 Propranolol HCl 10 mg PO TID #54 tablet 12/20/17 Albuterol Sulfate [Proair Hfa] 0.09 mg IH Q6H PRN #2 inh 01/03/18 Gabapentin [Neurontin] 300 mg PO TID 5 Days cap 01/03/18 methIMAzole [Tapazole] 10 mg PO BID 5 Days tab 01/03/18 Acetaminophen [Acetaminophen 8 Hour] 650 mg PO Q8 PRN #21 tablet.er 05/10/18 Cyclobenzaprine [Cyclobenzaprine HCl] 10 mg PO TID PRN #12 tab 05/10/18 Nabumetone [Relafen] 500 mg PO BID #10 tab 05/21/18 Cyclobenzaprine [Cyclobenzaprine HCl] 10 mg PO DAILY PRN #10 tab 07/17/18 Non-Formulary 1 ea TOP ONCE #1 ea 07/17/18 Albuterol 0.083% [Albuterol Sulfate 3 Ml] 60 ml IH Q4 PRN #1 neb 09/18/18 Albuterol HFA [Ventolin HFA 90 mcg/actuation (8 g)] 200 puff IH Q4 PRN #1 pump 09/18/18 Prednisone 50 mg PO DAILY #4 tablet 09/18/18
[2018-10-25] MEDS: Albuterol HFA 90 mcg/actuation (8 g) IH PRN ×2 (01:42→13:07)
[2018-10-25] MEDS ORDERED: Ciprofloxacin/Dexamethasone OTIC SUSP AS SCH (09:00)
[2018-10-25] MEDS: Fluticasone-Salmeterol 500-50mcg Diskus IH SCH ×2 (09:09→21:09)
--- NOTE | 2018-10-25 18:29 | PCM.PYCHPN ---
Psychiatric Progress Note - Psychiatric Progress Note Problems Identified/Issues Discussed: pt reportedly doing okay primary provider saw pt yesterday was to question what mood stabilizer to be ordered as pt reportedly scheduled to have or receive hep c treatment Mental Status Examination - Homicidal Ideation Homicidal Ideation: No
[2018-10-25] MEDS: Albuterol-Ipratrop 3 mg / 0.5 (3 ml) UD INH PRN (21:35)
[2018-10-26] MEDS: Fluticasone-Salmeterol 500-50mcg Diskus IH SCH ×2 (09:00→21:25)
[2018-10-26] MEDS: Ciprofloxacin/Dexamethasone OTIC SUSP AS SCH ×2 (10:03→16:19)
[2018-10-26] MEDS: Albuterol-Ipratrop 3 mg / 0.5 (3 ml) UD INH PRN (21:33)
--- NOTE | 2018-10-27 10:13 | PCM.PYCHPN ---
Psychiatric Progress Note - Psychiatric Progress Note Patient seen today, length of contact: pt seen and evaluated Patient Chief Complaint: pt has remained internally preoccupied and paranoid and does not report hallucinations today.pt remains with poor insight and need further stabilization. Medication Change: No Medical Record Reviewed: Yes Mental Status Examination - Cognitive Function Attention: Poor Concentration: Poor Association: WNL Fund of Knowledge: WNL - Mood Mood: Depressed - Homicidal Ideation Homicidal Ideation: No Goal/Treatment Plan - Goal/Treatment Plan Progress Toward Problem(s) and Goals/Treatment Plan: will continue to titrate meds to stabilize the pt and engage pt in therapy consider lithium As pt cant tolerate VPA due to poor liver function.
[2018-10-27] MEDS: Fluticasone-Salmeterol 500-50mcg Diskus IH SCH ×2 (10:28→21:12)
[2018-10-27] MEDS: Ciprofloxacin/Dexamethasone OTIC SUSP AS SCH ×2 (10:29→21:13)
[2018-10-27] MEDS: Albuterol-Ipratrop 3 mg / 0.5 (3 ml) UD INH PRN (22:39)
[2018-10-28] MEDS: Fluticasone-Salmeterol 500-50mcg Diskus IH SCH ×2 (09:39→21:17)
[2018-10-28] MEDS: Ciprofloxacin/Dexamethasone OTIC SUSP AS SCH ×2 (09:40→21:18)
--- NOTE | 2018-10-28 14:47 | PCM.PYCHPN ---
Psychiatric Progress Note - Psychiatric Progress Note Patient seen today, length of contact: pt seen and evaluated Patient Chief Complaint: pt has been less anxious today but is concerned about her hepatitis but at the sametime in a denial that her liver is normal.has remained internally pre occupied and paranoid and does not report hallucinations today.pt remains with poor insight and need further stabilization. pt educated regarding trying lithium for mood symptoms as it goes through kidney and does not involve liver and pt says she will look into it. Medication Change: No Medical Record Reviewed: Yes Mental Status Examination - Cognitive Function Attention: Poor Concentration: Poor Association: WNL Fund of Knowledge: WNL - Mood Mood: Depressed - Homicidal Ideation Homicidal Ideation: No Goal/Treatment Plan - Goal/Treatment Plan Progress Toward Problem(s) and Goals/Treatment Plan: will continue to titrate meds to stabilize the pt and engage pt in therapy consider lithium As pt cant tolerate VPA due to poor liver function. As per medicine pt is suppposed to start her treatment for hepatitis C and will minimise use of Ativan decreased to bid . Disposition as per primary psychiatrist.
--- NOTE | 2018-10-29 08:52 | PCM.PYCHPN ---
Psychiatric Progress Note - Psychiatric Progress Note Patient seen today, length of contact: Pt evaluated, case discussed w/ team, chart reviewed Patient Chief Complaint: "I'm getting better." Problems Identified/Issues Discussed: Patient reports that her mood is improving, but she continues to feel anxious. She denies acute AH/VH/SI/HI. We discussed the importance of compliance with treatment and medications. Medication Change: Yes (Taper Ativan) Medical Record Reviewed: Yes Consults ordered or reviewed: Medicine consult Mental Status Examination - Cognitive Function Orientation: Person, Place, Situation, Time Memory: Intact Attention: WNL Concentration: WNL Association: WNL Fund of Knowledge: [facility] Decription of patient's judgement and insights: Improving I/J - Mood Mood: Anxious - Affect Affect: Constricted - Speech Speech: Appropriate - Formal Thought Process Formal Thought Process: No Impairment Psychotic Thoughts and Behaviors: No AH/VH/paranoia/delusions - Suicidal Ideation Suicidal Ideation: No - Homicidal Ideation Homicidal Ideation: No Goal/Treatment Plan - Goal/Treatment Plan Need for Continued Stay: Discharge may exacerbated symptoms Progress Toward Problem(s) and Goals/Treatment Plan: Bipolar Disorder; PTSD -Continue Lexapro and Risperdal -Taper Ativan -Medicine consult -Individual and group therapy -Psychoeducation -Disposition planning- likely discharge tomorrow as patient is improving clinically Estimated Date of D/C: 10/30/18
[2018-10-29] MEDS: Fluticasone-Salmeterol 500-50mcg Diskus IH SCH ×2 (09:10→21:04)
[2018-10-29] MEDS: Ciprofloxacin/Dexamethasone OTIC SUSP AS SCH (09:11)
[2018-10-29] MEDS: Albuterol HFA 90 mcg/actuation (8 g) IH PRN (12:45)
[2018-10-30 05:55] VITALS: BP 101/63; PULSE 87; RESP 18; TEMP 97.5
[2018-10-30] MEDS: Ciprofloxacin/Dexamethasone OTIC SUSP AS SCH (08:00)
[2018-10-30] MEDS: Fluticasone-Salmeterol 500-50mcg Diskus IH SCH (08:00)
--- NOTE | 2018-10-30 08:53 | PCM.PYCHDC ---
Mental Status Examination - Mental Status Examination Orientation: Person, Place, Situation, Time Memory: Intact Mood: Neutral Affect: Broad Speech: Appropriate Attention: WNL Concentration: WNL Association: WNL Fund of Knowledge: WNL Formal Thought Process: No Impairment Description of patient's judgement and insight: Good I/J Psychotic Thoughts and Behaviors: No AH/VH/paranoia/delusions Suicidal Ideation: No Current Homicidal Ideation?: No Discharge Summary - Discharge Note Reason for Hospitalization: 38 yo female w/ h/o Bipolar Disorder, PTSD and opioid use disorder, presents w/ worsening depression and auditory hallucinations in the context of Suboxone abuse. Consultations:: List each consultation separately and include: 1. Reason for request. 2. Findings. 3. Follow-up Consultations: Medicine consult Summary of Hospital Course include:: 1. Description of specific treatment plan utilized for patients during their course of treatmen. 2. Summarize the time- course for resolution of acute symptoms and/or regressed behaviors. 3. Describe issues identified and worked on during hospitalization. 4. Describe medication utilized. 5. Describe medical problems identified and treated. 6. Reassessment of suicide risk Summary of Hospital Course: Patient was admitted to the psychiatry unit. Individual and group therapy were provided. Patient was stabilized on Lexapro and Risperdal. Psychoeducation provided on the dangers of substance abuse. Patient denies acute depression/anxiety/AH/VH/paranoia/delusions. She is psychiatrically stable for discharge at this time. - Diagnosis (1) Bipolar disorder Current Visit: Yes Status: Acute (2) PTSD (post-traumatic stress disorder) Current Visit: Yes Status: Acute - Final Diagnosis (DSM 5) Condition upon Discharge: STABLE DSM 5: Bipolar Disorder; PTSD Disposition: HOME/ ROUTINE Follow-up Treatment Plan: Bipolar Disorder; PTSD; Opioid Use Disorder -Discharge to home w/ outpatient follow-up Prescriptions/Medication Reconciliation: Albuterol HFA [Ventolin HFA 90 mcg/actuation (8 g)] 2 puff IH Q4 PRN #1 pump PRN Reason: Wheezing Ciprofloxacin/Dexamethasone [Ciprodex Otic] 4 drop BID #1 bottle Escitalopram [Lexapro] 10 mg PO DAILY #30 tab Fluticasone/Salmeterol 500/50 [Advair Diskus 500/50] 1 puff IH Q12 #1 puff methIMAzole [Tapazole] 10 mg PO BID #60 tab risperiDONE [RisperDAL Tab] 2 mg PO HS #30 tab - Smoking Cessation Smoking Cessation Medication prescribed: No Reason for not providing: Not indicated - Antipsychotic Medications Pt discharged on 2 or more routine antipsychotic medications: No
== END 2018-10-30 12:50 | disposition home or self-care (01) | DRG 430 ==
LOC: H.ER 15:40 → H.ERHOLD 19:36 → H.STEP 23:00
PROVIDERS: ADMIT Psychiatry & Neurology Psychiatry; ATTEND Psychiatry & Neurology Psychiatry
PROC: GZHZZZZ Group Psychotherapy (ICD-10-PCS; principal; 2018-10-23)
PROC: HZ56ZZZ Individual Psychotherapy for Substance Abuse Treatment, Psychoeducation (ICD-10-PCS; 2018-10-23)
DX: F31.9 Bipolar disorder, unspecified (principal); B19.20 Unspecified viral hepatitis C without hepatic coma; F11.90 Opioid use, unspecified, uncomplicated; J44.9 Chronic obstructive pulmonary disease, unspecified; H60.92 Unspecified otitis externa, left ear; R79.89 Other specified abnormal findings of blood chemistry; R45.851 Suicidal ideations; Z87.891 Personal history of nicotine dependence; F43.10 Post-traumatic stress disorder, unspecified; Z88.6 Allergy status to analgesic agent; Z91.018 Allergy to other foods; M19.90 Unspecified osteoarthritis, unspecified site; G43.909 Migraine, unspecified, not intractable, without status migrainosus

== ENCOUNTER 2019-01-28 20:42 | Emergency (ER) | payer MEDICAID ==
[2019-01-28 20:42] VITALS: BMI 32.2
[2019-01-28 20:49] VITALS: RESP 16
[2019-01-28] MEDS ORDERED: Albuterol-Ipratrop 3 mg / 0.5 (3 ml) UD INH STA ×2 (21:50→23:51)
[2019-01-28] MEDS ORDERED: Albuterol-Ipratrop 3 mg / 0.5 (3 ml) UD ONE (22:10)
--- NOTE | 2019-01-29 00:54 | ED PDOC ---
Upper Extremity Pain/Injury Time Seen by Provider: 01/28/19 21:08 Chief Complaint (Nursing): Upper Extremity Problem/Injury Chief Complaint (Provider): abrasion, wheezing History Per: Patient History/Exam Limitations: no limitations Onset/Duration Of Symptoms: Mins Additional Complaint(s): 38 yo female with history of asthma presents for evaluation of abrasion on the left hand. Pt states that she was scratched by a piece of tree and was concerned about getting sap in her vein because abrasion is over a vein in her hand. Pt also states her asthma is now acting up and she would like a treatment. Past Medical History Reviewed: Historical Data, Nursing Documentation, Vital Signs Vital Signs: Last Vital Signs Temp 98.3 F 01/28/19 20:46 Pulse 116 H 01/28/19 20:46 Resp 16 01/28/19 20:46 BP 130/76 01/28/19 20:46 Pulse Ox 97 01/28/19 20:46 Primary Care Provider: Procedure,Nonphys - Medical History PMH: Anxiety, Arthritis, Asthma, Bronchitis, Depression, Emphysema, Fractures (ankles, c5 neck), Hepatitis (C), HIV, Migraine, Post Traumatic Stress Disorder, Schizophrenia Denies: Alzheimer's Disease, Anemia, Atrial Fibrillation, Bipolar Disorder, CAD, Cardia Arrhythmia, CHF, COPD, Crohn's Disease, Dementia, Diabetes, Diverticulitis, Gastritis, Gall Bladder Disease, HTN, Hypercholesterolemia, Hyperthyroidism, Hypothyroidism, Kidney Stones, Mitral Valve Prolapse, Multiple Sclerosis, Osteoporosis, Pancreatitis, Paranoia, Parkinson's Disease, Peripheral Edema, Pneumonia, Pulmonary Embolism, Chronic Kidney Disease, Rheumatoid Arthritis, Seizures, Sickle Cell Disease, Sexually Transmitted Disease, Sleep Apnea, TIA - Surgical History Surgical History: Back Surgery, Denies: Appendectomy, CABG, Carotid Endarterectomy, Cholecystectomy, Coronary Stent, Pacemaker, Tonsillectomy - Family History Family History: States: Unknown Family Hx, Hypertension - Home Medications Home Medications: Ambulatory Orders Medication Instructions Recorded Albuterol HFA [Ventolin HFA 90 2 puff IH Q4 PRN #1 pump 10/30/18 mcg/actuation (8 g)] Albuterol/Ipratropium [Duoneb 3 3 ml INH RQ4 PRN neb 10/30/18 mg/0.5 mg (3 ml) UD] Ciprofloxacin/Dexamethasone 4 drop BID #1 bottle 10/30/18 [Ciprodex Otic] Escitalopram [Lexapro] 10 mg PO DAILY #30 tab 10/30/18 Fluticasone/Salmeterol 500/50 1 puff IH Q12 #1 puff 10/30/18 [Advair Diskus 500/50] methIMAzole [Tapazole] 10 mg PO BID #60 tab 10/30/18 risperiDONE [RisperDAL Tab] 2 mg PO HS #30 tab 10/30/18 - Allergies Allergies/Adverse Reactions: Allergies Allergy/AdvReac Type Severity Reaction Status Date / Time aspirin Allergy SHORTNESS Verified 10/23/18 16:43 OF BREATH mold Allergy SHORTNESS Verified 10/23/18 16:43 OF BREATH tomato Allergy SHORTNESS Verified 10/23/18 16:43 OF BREATH trazodone Allergy RASH Verified 10/23/18 16:43 lettuce Allergy RASH Uncoded 10/23/18 16:43 Review of Systems ROS Statement: Except As Marked, All Systems Reviewed And Found Negative Constitutional: Negative for: Fever, Chills Respiratory: Positive for: Wheezing Skin: Positive for: Other Physical Exam - Reviewed Nursing Documentation Reviewed: Yes Vital Signs Reviewed: Yes - Physical Exam Appears: Positive for: Well, Non-toxic, No Acute Distress Head Exam: Positive for: ATRAUMATIC, NORMAL INSPECTION, NORMOCEPHALIC Skin: Positive for: Normal Color, Warm, DRY Eye Exam: Positive for: Normal appearance ENT: Positive for: Normal ENT Inspection Neck: Positive for: Normal, Painless ROM Cardiovascular/Chest: Positive for: Regular Rate, Rhythm Respiratory: Positive for: Wheezing. Negative for: Accessory Muscle Use, Respiratory Distress Gastrointestinal/Abdominal: Positive for: Normal Exam, Soft Back: Positive for: Normal Inspection Extremity: Positive for: Normal ROM Neurological/Psych: Positive for: Awake, Alert, Normal Tone - ECG O2 Sat by Pulse Oximetry: 97 Pulse Ox Interpretation: Normal Medical Decision Making Medical Decision Making: No wheezing on re-evaluation. Disposition - Clinical Impression Clinical Impression: Asthma, Abrasion - Patient ED Disposition Is Patient to be Admitted: No Counseled Patient/Family Regarding: Diagnosis, Need For Followup - Disposition Disposition: Routine/Home Disposition Time: 00:53 Condition: GOOD Instructions: Skin Abrasions Forms: [employer] (Polish) - POA Present On Arrival: None
[2019-01-29 07:09] VITALS: BP 117/78; PULSE 83; TEMP 98.1; O2SAT 100
== END 2019-01-29 01:39 | disposition home or self-care (01) ==
LOC: H.ER 20:42
DX: J45.909 Unspecified asthma, uncomplicated (principal); S60.512A Abrasion of left hand, initial encounter; X58.XXXA Exposure to other specified factors, initial encounter; Y92.89 Other specified places as the place of occurrence of the external cause; F43.10 Post-traumatic stress disorder, unspecified